=== PATIENT | female | born 1965 | race Caucasian/White ===

== ENCOUNTER 2024-02-29 14:46 | Outpatient (AMB) | payer OTHER, SELFPAY ==
--- NOTE | 2024-02-29 15:02 | MHC.PC.OV ---
Vital Signs 02/29/24 15:04 Height 5 ft 3.39 in Weight 242 lb 6 oz BMI 42.4 BP 136/70 Blood Pressure Location Lt brachial Position Sitting Pulse 76 Pulse Oximetry (%) 96 Oxygen Delivery Method Room Air Intake Visit Reasons: est care Intake Note: Patient is here as a new patient with concern of right knee pain, and lower back pain. Patient would like to have mammogram and colonsocopy referrals put in, and her eyelids hurt, too. Patient complains of losing a lot of sleep lately. Allergies No Known Allergies Allergy (Verified 02/29/24 15:18) Medication List - Last Reconciled 02/29/24 by Brendan Chew MD albuterol 90 mcg/actuation mcg inhalation amlodipine 10 mg PO DAILY budesonide-formoterol 160-4.5 mcg/actuation (Symbicort) 2 puffs inhalation BID ipratropium-albuterol 0.5 mg-3 mg(2.5 mg base)/3 mL mL inhalation BID losartan-hydrochlorothiazide 100-25 mg 1 tab PO DAILY montelukast 10 mg PO BEDTIME tiotropium bromide (Spiriva with HandiHaler) 1 cap inhalation DAILY Tobacco use date assessed: 02/29/24 Dental Screening Dental Screen Date: 02/29/24 Did you have a dental visit in the last 12 months?: Yes Did you have a dental problem in the last 6 months where you did not have access to dental care?: No Was dental information given to patient?: Patient has dentist HPI est care HPI Details New patient Prior PCP:? PCP in [facility]. Last office visit/CPE: Acute issue(s): PMHx: HTN, Asthma, Obesity, Osteochondrosis with sxs in neck - Cervicalgia SurgHx: None FHx: Mom: Glaucoma, HTN SocHx: No cigs. EtOH1 glass on holidays. No drugs HPI Comments History of Present Illness Details Documentation assistance for Brendan Chew MD, was provided by Shabbir Mulligan,? [employer] Specialist on 02/29/2024 3:24 PM EST. I, Dr. Chew, have read, observed, and verified documentation. [facility] Medical History (Updated 02/29/24 @ 15:57 by Shabbir Mulligan) Hemorrhoids Varicose veins of both legs with edema Asthma Surgical History (Updated 02/29/24 @ 15:[address] CMA) No pertinent past surgical history Family History (Updated 02/29/24 @ 15:[address] CMA) Mother High blood pressure Glaucoma Father Radiation adverse effect Social History (Updated 02/29/24 @ 15:[address] CMA) Household Members: Children Housing: House Are you a primary restorative care technician to a significant other at home: No Do you presently have visiting nurse or other home services: No Patient Tobacco Use Status: Never used Tobacco e-Cigarette/Vaping Use: Never Used service: No Current occupational status: other Cognitive needs: No Hearing needs: No Vision needs: No Questionnaire PHQ-9 Over the last 2 weeks, how often have you been bothered by any of the following problems? 1. Little interest or pleasure in doing things: not at all 2. Feeling down, depressed, or hopeless: not at all 3. Trouble falling or staying asleep, or sleeping too much: not at all 4. Feeling tired or having little energy: not at all 5. Poor appetite or overeating: not at all 6. Feeling bad about yourself - or that you are a failure or have let yourself or your family down: not at all 7. Trouble concentrating on things, such as reading the newspaper or watching television: not at all 8. Moving or speaking so slowly that other people could have noticed. Or the opposite - being so fidgety or restless that you have been moving around a lot more than usual: not at all 9. Thoughts that you would be better off or of hurting yourself in some way: not at all Total score: 0 Depression Screening Interpretation: Negative Depression Screening Done: Yes Source: Developed by Drs. Gerardo Spaulding, Paulette Pennington, Mike Dennis and colleagues, with an educational orlando from [employer]. Thrive Questionnaire Date Thrive assessed: 02/29/24 I am a: Patient What is your living situation today?: I have a steady place to live Within the past 12 months, did the food you bought not last and you didn't have the money to get more?: Never true Within the past 12 months, did you worry whether your food would run out before you got money to buy more?: Never true Do you have trouble paying for medicines?: Yes Do you have trouble getting transportation to medical appointments?: No Do you have trouble paying your heating and electricity bill?: No Do you have trouble taking care of your child, family member or friend?: No Do you have trouble with day-to-day activities such as bathing, preparing meals, shopping, managing finances, etc.?: No Are you currently unemployed and looking for a job?: Yes Are you interested in more education?: Yes THRIVE Score: 0 AUDIT C Alcohol Use Questionnaire (AUDIT-C) 1. How often do you have a drink containing alcohol?: Never 3. How often do you have six or more drinks on one occasion?: Never Total Score: 0 JOSE-7 AMB Questionnaire JOSE-7 Date JOSE - 7 assessed: 02/29/24 Feeling nervous, anxious, or on edge: 0 = Not at all Not being able to stop or control worryin = Not at all Worrying too much about different things: 0 = Not at all Trouble relaxin = Not at all Being so restless that it is hard to sit still: 0 = Not at all Becoming easily annoyed or irritable: 0 = Not at all Feeling afraid as if something awful might happen: 0 = Not at all Total JOSE-7 score (0-4 normal; 5-9 mild; 10-14 moderate; 15-21 severe): 0 Source: Developed by Drs. Gerardo Spaulding, Paulette Pennington, Mike Dennis and colleagues, with an educational orlando from [employer]. Review of Systems Const Denies chills, Denies fatigue, Denies fever(s), Denies headache(s) and Denies weakness ENT Denies dizziness and Denies headache(s) Card Denies chest pain, Denies lightheadedness, Denies dyspnea and Denies other (Palpitations) Resp Denies cough, Denies dyspnea, Denies wheezing and Denies other ( shortness of breath) Musc Details: Knee pain Reports back pain, Denies numbness and Denies tingling Neuro Denies dizziness, Denies headache(s), Denies numbness, Denies tingling, Denies paresthesias and Denies weakness Psych Denies anxiety and Denies depression Endo Denies fatigue Aller/Immun Denies wheezing Physical exam (Primary Care) BMI result Body Mass Index 42.4 Tobacco/Smoking Status: Tobacco use Status Tobacco use date assessed 02/29/24 02/29/24 15:24 Patient Tobacco Use Status Never used Tobacco 02/29/24 15:28 e-Cigarette/Vaping Use Never Used 02/29/24 15:28 PHQ-9: PHQ-9 Score PHQ-9: Total score 0 02/29/24 15:37 Depression Screening Interpretation: Negative Thrive Assessment: Date of Thrive Assessment Date Thrive assessed 02/29/24 02/29/24 15:34 Const General: no acute distress and well developed Nutritional Appearance: obese morbidly obese Orientation/consciousness: patient oriented x3 HENMT Head: Yes normocephalic and Yes atraumatic Eyes General: appearance normal, both eyes and all related structures Pupils: Equal, round and reactive pupils present EOM: EOMs intact bilaterally Resp Other: Wheezing Effort & Inspection: normal respiratory effort Auscultation: clear to auscultation bilaterally Cardio Rate: regular rate Rhythm: regular rhythm Heart sounds: S1 normal heart sound present, S2 normal heart sound present, no gallops, no murmurs and no rubs Neuro General: patient oriented x3 and gait normal Cranial nerves: Yes Equal, round and reactive pupils present Psych Affect: normal affect Assessment and Plan Assessment & Plan (1) Hypertension: Code(s): I10 - Essential (primary) hypertension Plan: Blood?pressure?is?controlled.??Goal?is?less?than?140/90 Continue?current?medication (2) Right knee pain: Code(s): M25.561 - Pain in right knee Plan: Likely?secondary?to?arthritis?with?effusion?and?some?dependent?swelling She?can?try?naproxen Check?x-ray (3) Low back pain: Code(s): M54.50 - Low back pain, unspecified Plan: Naproxen?will?also?help?with?low?back?pain (4) Asthma: Code(s): J45.909 - Unspecified asthma, uncomplicated Plan: Referred?to?pulmonology She?has?some?wheezing?and?has?a?Ventolin?inhaler?which?she?is?only?using?once?per?day.??Advised?her?to?use?3-4?times?per?day?with?wheezing Take?all?other?medications?as?prescribed Follow-up?with?pulmonology (5) Eye irritation: Code(s): H57.89 - Other specified disorders of eye and adnexa Plan: Appears?to?be?allergic?conjunctivitis Sent?a?script?for?olopatadine (6) Varicose veins of leg with edema: Code(s): I83.899 - Varicose veins of unspecified lower extremity with other complications Plan: Elevate?leg (7) Osteochondrosis: Code(s): M93.90 - Osteochondropathy, unspecified of unspecified site Plan: Neck?and?shoulder?pain Will?discuss?further?at?next?appointment (8) Screening for colon cancer: Code(s): Z12.11 - Encounter for screening for malignant neoplasm of colon Plan: Due?for?colonoscopy Referred?to?GI (9) Breast cancer screening by mammogram: Code(s): Z12.31 - Encounter for screening mammogram for malignant neoplasm of breast Plan: Due?for?mammogram Ordered Orders: Orders Lipid Panel Today Z00.00 - Encounter for general adult medical examination without abnormal findings UA and rflx microscopic Today Z00.00 - Encounter for general adult medical examination without abnormal findings MM tomosynthesis screening BI Today Z12.31 - Encounter for screening mammogram for malignant neoplasm of breast Erythrocyte Sedimentation Rate Today M25.561 - Pain in right knee XR knee RT 3V Today M25.561 - Pain in right knee Comprehensive [place]. Panel Fast Today Z00.00 - Encounter for general adult medical examination without abnormal findings Microalbumin, Random (w Creat) Today I10 - Essential (primary) hypertension TSH reflex Free T4 Today Z00.00 - Encounter for general adult medical examination without abnormal findings Referrals Gastroenterology Referral Z12.11 - Encounter for screening for malignant neoplasm of colon Pulmonology Referral J45.909 - Unspecified asthma, uncomplicated Medications: New olopatadine 0.7% (Pataday Once Daily Relief) 1 drp ophthalmic (eye) DAILY 30 days PRN 5 mL 4RF itching naproxen 500 mg PO BID 30 days PRN 60 tabs 0RF pain blood pressure monitor Automatic, Digital. Dx: I10. Daily As directed, 999 days/lifetime 1 ea 0RF I10 - Essential (primary) hypertension Coding Level of Care Code New Pt Level 4 (93936) Diagnoses Hypertension I10 Right knee pain M25.561 Low back pain M54.50 Asthma J45.909 Eye irritation H57.89 Varicose veins of leg with edema I83.899 Osteochondrosis M93.90 Screening for colon cancer Z12.11 Breast cancer screening by mammogram Z12.31
[2024-02-29 15:04] VITALS: BP 136/70; PULSE 76; O2SAT 96; BMI 42.4
== END 2024-02-29 16:20 | disposition home or self-care (01) ==
LOC: HO.HMGFM 14:46
PROVIDERS: Visit Provider Family Medicine
DX: I10 Essential (primary) hypertension (principal); M25.561 Pain in right knee; M54.50 Low back pain, unspecified; J45.909 Unspecified asthma, uncomplicated; H57.89 Other specified disorders of eye and adnexa; I83.899 Varicose veins of unspecified lower extremity with other complications; M93.90 Osteochondropathy, unspecified of unspecified site; Z12.11 Encounter for screening for malignant neoplasm of colon; Z12.31 Encounter for screening mammogram for malignant neoplasm of breast
CPT/HCPCS: 99204

== ENCOUNTER 2024-03-01 11:47 | Outpatient (REF) | payer OTHER, SELFPAY ==
--- NOTE | ~2024-03-01 | XR_ITS ---
EXAMINATION: XR KNEE, RIGHT CLINICAL INFORMATION: Pain in right knee. COMPARISON: None available. TECHNIQUE: Three views of the right knee. FINDINGS: Wxnioder-cl-cwhwye narrowing of the medial compartment with small medial marginal osteophytes. Tiny posterior patellar and lateral marginal osteophytes. Trace joint effusion. XR/XR knee RT 3V IMPRESSION: Cvqehord-ys-mwgxnr narrowing of the medial compartment.
[2024-03-01 13:49] LABS: Appearance Urine Clear; Color Urine Yellow; Glucose Urine UA Negative (Negative); Leukocyte Esterase Urine Small (1+) (Negative); Nitrite Urine Negative (Negative); PH 7.5 (5.0-9.0); Specific Gravity - Urine 1.015 (1.005-1.025); UMIC TRIGGER UA YES; Urine Blood Negative (Negative); Urine Ketones Negative (Negative); Urine Protein Negative (Neg-Trace)
[2024-03-01 14:01] LABS: Bacteria Urine 2+ (None Seen); Hyaline Casts Urine 0-2 /LPF (0-2); RBC Urine 0-2 /HPF (0-2); WBC Urine 0-5 /HPF (0-5)
[2024-03-01 14:16] LABS: Alanine Aminotransferase 36 U/L (0-31); Albumin Level 4.4 g/dL (3.5-5.0); Alkaline Phosphatase 54 U/L (39-117); Anion Gap 11 (12-20); Aspartate Amino Transferase 19 U/L (5-31); Bilirubin Total 0.5 mg/dL (0.0-1.0); Blood Urea Nitrogen 11 mg/dL (9-16); Calcium 9.6 mg/dL (8.4-10.2); Carbon Dioxide 33 mmol/L (22-29); Chloride 105 mmol/L (96-108); Cholesterol 211 mg/dL (<200); Estimated Glomerular Filt Rate > 60; Glucose Fasting 118 mg/dL (60-99); HDL Cholesterol 48 mg/dL (>40); LDL Cholesterol Calculated 135 mg/dL (<100); Potassium 4.8 mmol/L (3.3-5.1); Sodium 144 mmol/L (135-145); Total Protein 7.2 g/dL (6.5-8.0); Triglycerides 140 mg/dL (<150)
[2024-03-01 14:31] LABS: TSH reflex Free T4 1.11 uIU/mL (0.32-4.0)
[2024-03-01 14:38] LABS: Creatinine Urine 47.97 mg/dL; Microalbumin Urine < 5.0 mg/L
[2024-03-01 14:50] LABS: Erythrocyte Sedimentation Rate 2 MM/HR (0-20)
== END 2024-03-01 11:48 | disposition home or self-care (01) ==
LOC: HO.LAB 11:47
PROVIDERS: PCP Family Medicine; Visit Provider Family Medicine
DX: Z00.00 Encounter for general adult medical examination without abnormal findings (principal); I10 Essential (primary) hypertension; M25.561 Pain in right knee
CPT/HCPCS: 36415; 73562; 80053; 80061; 81001; 82043; 82570; 84443; 85652

== ENCOUNTER 2024-03-18 13:48 | Outpatient (AMB) | payer OTHER, SELFPAY ==
--- NOTE | 2024-03-18 13:48 | MHC.OFFVIS ---
Vital Signs 03/18/24 13:56 Height 5 ft 3.39 in Weight 241 lb 8 oz BMI 42.3 BP 160/88 H Blood Pressure Location Rt brachial Position Sitting Pulse 85 Pulse Source Pulse Oximeter Pulse Oximetry (%) 96 Oxygen Delivery Method Room Air Intake Visit Reasons: unspecified asthma Recruiting And Selection Consultant Required: Yes Recruiting And Selection Consultant Language: Monegasque Recruiting And Selection Consultant Name: [id number] Allergies procaine [From Novocain] Allergy (Mild, Verified 03/18/24 14:00) Redness of Skin HPI HPI unspecified asthma: Details: Thu is a pleasant 59 year old female, never smoker, with underlying asthma and HTN. She was referred by PCP for pulmonary evaluation. She is suboptimally controlled on Symbicort, Spiriva, singulair, duoneb BID and albuterol MDI PRN. She was previously under the care of pulmonology in [place], no records available to review. She reports asthma diagnosis as an adult, no need for prior intubations. She last reportedly required prednisone for an exacerbation about one year ago. She continues to report wheezing dyspnea on exertion and dry cough. She reports seasonal allergies, no recent allergy testing. She denies any pertinent family history. She denies any occupational exposures. [facility] Medical History (Updated 03/18/24 @ 14:23 by Sofia Ivory NP) Hemorrhoids Varicose veins of both legs with edema Asthma Surgical History (Updated 02/29/24 @ 15:[address] CMA) No pertinent past surgical history Family History (Updated 02/29/24 @ 15:[address] CMA) Mother High blood pressure Glaucoma Father Radiation adverse effect Social History Household Members: Children Housing: House Are you a primary care services manager to a significant other at home: No Do you presently have visiting nurse or other home services: No Patient Tobacco Use Status: Never used Tobacco e-Cigarette/Vaping Use: Never Used service: No Current occupational status: other Cognitive needs: No Hearing needs: No Vision needs: No Review of Systems Const Denies chills, Denies excessive sweating, Denies fever(s), Denies headache(s) and Denies night sweats Eyes Denies dry eyes, Denies irritation and Denies itchy eyes ENT Reports Normal hearing present, Denies headache(s), Denies nasal congestion, Denies nasal discharge, Denies post nasal drip and Denies sore throat Card Denies chest pain, Denies chest pain at rest, Denies chest pain with activity, Denies claudication, Denies leg edema, Denies dyspnea, Denies dyspnea on exertion, Denies orthopnea and Denies paroxysmal nocturnal dyspnea Resp Denies chest congestion, Denies cough, Denies excessive phlegm production, Denies pain on inspiration, Denies pain with cough, Denies dyspnea, Denies dyspnea on exertion, Denies stridor and Denies wheezing Musc Denies myalgias Neuro Reports Normal hearing present and Denies headache(s) Endo Denies excessive sweating Jonh/Lymph Denies lymphadenopathy Aller/Immun Denies itchy eyes, Denies seasonal rhinorrhea and Denies wheezing Physical Exam Vital Signs: Last Vital Signs Pulse 85 03/18/24 13:56 BP 160/88 H 03/18/24 13:56 Pulse Ox 96 03/18/24 13:56 Oxygen Delivery Method Room Air 03/18/24 13:56 BMI result Body Mass Index 42.3 Const General: cooperative, healthy appearing, comfortable, no acute distress, well developed and alert Nutritional Appearance: obese Orientation/consciousness: patient oriented x3 Limitations: no limitations HEENT Head: Yes normal to inspection, Yes normocephalic and Yes atraumatic Ears: hearing grossly normal bilaterally and external ears normal Eyes General: appearance normal, both eyes and all related structures Eyelids: Yes eyelids normal Sclerae: sclerae normal EOM: EOMs intact bilaterally Neck Neck: Yes normal visual inspection and Yes no lymphadenopathy Lymphatic: no lymphadenopathy noted Chest Chest palpation & inspection: normal inspection of the chest Resp Effort & Inspection: normal respiratory effort, able to speak in complete sentences, no audible wheezes, no cough, no stridor, not tachypneic, no tripod positioning and no use of accessory muscles Auscultation: wheezes expiratory wheezes and throughout Cardio Jugular venous distension: no JVD Rate: regular rate Rhythm: regular rhythm Skin Other: warm, dry General skin exam: no rashes or lesions noted Neuro General: patient oriented x3 Cranial nerves: Yes Normal hearing present Cognition (Neuro): normal cognition Gait exam (Neuro): Normal gait present Extrem General: Yes normal to inspection, Yes capillary refill normal, Yes no clubbing, cyanosis or edema and Yes no pedal edema Psych Appearance: grossly normal and well kempt Speech and movement: Normal speech and movement present and Clear speech present Affect: normal affect Attitude: cooperative Thought process: Normal thought process present Thought content: Normal thought content present Insight: Good insight present (Psych) Judgement: Good judgement present (Psych) Assessment & Plan Assessment & Plan (1) Asthma: Code(s): J45.909 - Unspecified asthma, uncomplicated Category: Medical (2) Environmental allergies: Code(s): Z91.09 - Other allergy status, other than to drugs and biological substances Category: Medical Plan Thu's symptoms are likely related to underlying asthma. Advised to continue current regimen and for the next few days increase duoneb to TID as well as 5 day rx of prednisone. Will send for PFT and RAST to evaluate. May need to initiate biologic therapy. Patient with no recent imaging and persistent cough, will send for CXR. Will also have patient sign release to obtain prior pulmonary records. All questions were answered and patient is in agreement of plan. Will follow up to review results or sooner if needed. Orders: Orders XR chest 2V Today R05.9 - Cough, unspecified Resp Allergy Profile Region I Today Z91.09 - Other allergy status, other than to drugs and biological substances Immunoglobulin E Today Z91.09 - Other allergy status, other than to drugs and biological substances Complete Blood Count Auto Diff Today Z91.09 - Other allergy status, other than to drugs and biological substances PFT pulmonary function test Today J45.909 - Unspecified asthma, uncomplicated Medications: New prednisone 40 mg (2 x 20 mg) PO DAILY 10 tabs 0RF Coding Level of Care Code New Pt Level 4 (45409) Diagnoses Asthma J45.909 Environmental allergies Z91.09
[2024-03-18 13:56] VITALS: BP 160/88; PULSE 85; O2SAT 96; BMI 42.3
== END 2024-03-18 14:44 | disposition home or self-care (01) ==
PROVIDERS: PCP Family Medicine; Visit Provider Nurse Practitioner Family
DX: J45.909 Unspecified asthma, uncomplicated (principal); Z91.09 Other allergy status, other than to drugs and biological substances
CPT/HCPCS: 99204

== ENCOUNTER → 2024-03-18 13:48 | Outpatient (BNVA) | payer OTHER, SELFPAY | PROVIDERS: PCP Family Medicine; Visit Provider Nurse Practitioner Family | DX: J45.909 Unspecified asthma, uncomplicated (principal); Z91.09 Other allergy status, other than to drugs and biological substances | CPT/HCPCS: 99202 ==

== ENCOUNTER 2024-03-22 09:39 | Outpatient (REF) | payer OTHER, SELFPAY ==
[2024-03-22 11:33] LABS: MANUAL DIFF FLAG NO
[2024-03-22 11:42] LABS: Basophils Percent Auto 0.3 % (0-2); Eosinophils Absolute Auto 0.3 X10*3/uL (0.0-0.4); Eosinophils Percent Auto 3.4 % (0-4); Hematocrit 43.6 % (37.0-47.0); Imm Gran Abs Auto 0.02 X10*3/uL (0.00-0.03); Imm Gran Pct Auto 0.2 % (0.0-0.4); Lymphocytes Absolute Auto 4.3 X10*3/uL (1.2-4.9); Lymphocytes Percent Auto 48.6 % (20-40); Mean Corpuscular HGB Conc 32.1 g/dl (31.0-35.0); Mean Corpuscular Hemoglobin 30.6 pg (27.0-33.0); Mean Corpuscular Volume 95.2 fL (80.0-98.0); Mean Platelet Volume 10.6 fL (9.4-12.3); Monocytes Absolute Auto 0.7 X10*3/uL (0.1-1.2); Monocytes Percent Auto 7.3 % (2-11); Neutrophils Absolute Auto 3.6 x10*3/uL (2.0-8.3); Neutrophils Percent Auto 40.2 % (45-73); Platelet Count 239 X10*3/uL (160-400); Red Blood Count 4.58 X10*6/uL (4.20-5.50); Red Cell Distribution Width 13.2 % (11.0-16.0); White Blood Count 8.9 X10*3/uL (4.8-10.8)
[2024-03-23 16:23] LABS: Class Alternaria alternata 0; Class Aspergillus fumigatus 0; Class Bermuda Grass 0; Class Birch 0; Class Cat Dander 0; Class Cladosporium herbarum 0; Class Cockroach 0; Class Common Ragweed 0; Class Cottonwood 0; Class Derm. pterony 0; Class Dermatophagoides farinae 0; Class Dog Dander 0; Class Elm 0; Class Maple Box Elder 0; Class Mountain Cedar 0; Class Mouse Urine Protein 0; Class Mugwort 0; Class Oak 0; Class Penicillium crysogenum 0; Class Rough Pigweed 0; Class Sheep Sorrel 0; Class Sycamore 0; Class Timothy Grass 0; Class Walnut Tree 0; Class White Ash 0; Class White Mulberry 0; D001 IgE D pteronyssinus <0.10 kU/L; D002 - IgE D farinae <0.10 kU/L; E001 - IgE Cat Dander <0.10 kU/L; E005 - IgE Dog Dander <0.10 kU/L; E072-IgE Mouse Urine <0.10 kU/L; G002 IgE Bermuda Grass <0.10 kU/L; G006 - IgE Timothy Grass <0.10 kU/L; I006-IgE Cockroach, German <0.10 kU/L; Immunoglobulin E 20 kU/L (<OR=114); M001 IgE Penicillium chrysogen <0.10 kU/L; M002 - IgE Cladosporium herbar <0.10 kU/L; M003 - IgE Aspergillus fumigat <0.10 kU/L; M006 - IgE Alternaria alternat <0.10 kU/L; T001 IgE Maple/Box Elder <0.10 kU/L; T003 IgE Common Silver Birch <0.10 kU/L; T006 - IgE Cedar, Mountain <0.10 kU/L; T007 - IgE Oak, White <0.10 kU/L; T008 IgE Elm, American <0.10 kU/L; T010 - IgE Walnut <0.10 kU/L; T011 - IgE Maple Leaf Sycamore <0.10 kU/L; T014 - IgE Cottonwood <0.10 kU/L; T015 - IgE Ash, White <0.10 kU/L; T070 - IgE White Mulberry <0.10 kU/L; W001 - IgE Ragweed, Short <0.10 kU/L; W006 - IgE Mugwort <0.10 kU/L; W014 IgE Pigweed, Common <0.10 kU/L; W018 IgE Sheep Sorrel <0.10 kU/L
== END 2024-03-22 09:40 | disposition home or self-care (01) ==
LOC: HO.WFDLDS 09:39
PROVIDERS: Visit Provider Nurse Practitioner Family
DX: Z91.09 Other allergy status, other than to drugs and biological substances (principal)
CPT/HCPCS: 36415; 82785; 85025; 86003

== ENCOUNTER 2024-04-07 13:50 | Outpatient (REF) | payer OTHER, SELFPAY ==
--- NOTE | ~2024-04-07 | MM_ITS ---
EXAMINATION: MM SCREENING DIGITAL BREAST TOMOSYNTHESIS, BILATERAL CLINICAL INFORMATION: Screening. Asymptomatic. COMPARISON: Mammography: There are no prior mammograms available for comparison. TECHNIQUE: Digital breast tomosynthesis is performed in both the craniocaudal and mediolateral oblique views along with computer-aided detection (CAD). Synthesized 2D images are generated from the tomosynthesis. FINDINGS: The breasts are almost entirely fatty (ACR BI-RADS breast composition Category a). There are no significant masses, abnormal calcifications, or other abnormalities. MM/MM tomosynthesis screening BI IMPRESSION: No mammographic evidence of malignancy. ASSESSMENT: BI-RADS BI-RADS 1 - Negative RECOMMENDATION: Routine annual mammography screening. 1 year F/U This examination should not preclude the clinical evaluation of a suspicious palpable abnormality. This patient's information was entered into a reminder system with a target due date for their next mammogram.
== END 2024-04-07 13:51 | disposition home or self-care (01) ==
LOC: HO.MAMMO 13:50
PROVIDERS: PCP Family Medicine; Visit Provider Family Medicine
DX: Z12.31 Encounter for screening mammogram for malignant neoplasm of breast (principal)
CPT/HCPCS: 77063; 77067

== ENCOUNTER → 2024-04-07 14:00 | Outpatient (BNV) | payer OTHER, SELFPAY | PROVIDERS: PCP Family Medicine; Visit Provider Radiology Diagnostic Radiology | DX: Z12.31 Encounter for screening mammogram for malignant neoplasm of breast (principal) | CPT/HCPCS: 77063; 77067 ==

== ENCOUNTER 2024-05-04 14:37 | Outpatient (AMB) | payer OTHER, SELFPAY ==
--- NOTE | 2024-05-04 14:56 | MHC.OFFVIS ---
Vital Signs 05/04/24 14:58 Height 5 ft 3.39 in Weight 248 lb 6 oz BMI 43.5 BP 142/76 H Blood Pressure Location Lt brachial Position Sitting Pulse 94 Pulse Source Pulse Oximeter Pulse Oximetry (%) 92 Oxygen Delivery Method Room Air Intake Visit Reasons: asthma Intake Note: [id number] Allergies procaine [From Novocain] Allergy (Mild, Verified 05/31/24 09:34) Redness of Skin HPI HPI asthma : Details: Thu is a pleasant 59 year old female, never smoker, with underlying asthma, severe YAA and HTN. She is suboptimally controlled on Symbicort, Spiriva, singulair, duoneb BID and albuterol MDI PRN. She was previously under the care of pulmonology in [place]. Reviewed more recent records which revealed moderate asthma and with question on pulmonary fibrosis, however no recent chest CT. Patient and prior documents from 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 Records also indicated severe YAA with AHI 33 and significant nocturnal hypoxemia, lowest 51%, from home sleep study performed 04/2023. She has been maintained on CPAP therapy 6-16cm with fullface mask and receives supplies from [facility]. Compliance from 09/2023 revealed compliance with therapy. No updated compliance report available today. [facility] Medical History Hemorrhoids Varicose veins of both legs with edema Asthma Surgical History History of colonoscopy (~2012) No pertinent past surgical history Family History Mother High blood pressure Glaucoma Father Radiation adverse effect Social History Household Members: Children Housing: House Are you a primary transitions rn care coordinator to a significant other at home: No Do you presently have visiting nurse or other home services: No Patient Tobacco Use Status: Never used Tobacco e-Cigarette/Vaping Use: Never Used service: No Current occupational status: other Cognitive needs: No Hearing needs: No Vision needs: No Review of Systems Const Denies chills, Denies excessive sweating, Denies fever(s), Denies headache(s) and Denies night sweats Eyes Denies dry eyes, Denies irritation and Denies itchy eyes ENT Reports Normal hearing present, Denies headache(s), Denies nasal congestion, Denies nasal discharge, Denies post nasal drip and Denies sore throat Card Denies chest pain, Denies chest pain at rest, Denies chest pain with activity, Denies claudication, Denies leg edema, Denies orthopnea and Denies paroxysmal nocturnal dyspnea Resp Denies chest congestion, Denies excessive phlegm production, Denies pain on inspiration, Denies pain with cough and Denies stridor Musc Denies myalgias Neuro Reports Normal hearing present and Denies headache(s) Endo Denies excessive sweating Jonh/Lymph Denies lymphadenopathy Aller/Immun Denies itchy eyes and Denies seasonal rhinorrhea Physical Exam Vital Signs: Last Vital Signs Pulse 94 05/04/24 14:58 BP 142/76 H 05/04/24 14:58 Pulse Ox 92 05/04/24 14:58 Oxygen Delivery Method Room Air 05/04/24 14:58 BMI result Body Mass Index 43.5 Const General: cooperative, healthy appearing, comfortable, no acute distress, well developed and alert Nutritional Appearance: obese Orientation/consciousness: patient oriented x3 Limitations: no limitations HEENT Head: Yes normal to inspection, Yes normocephalic and Yes atraumatic Ears: hearing grossly normal bilaterally and external ears normal Eyes General: appearance normal, both eyes and all related structures Eyelids: Yes eyelids normal Sclerae: sclerae normal EOM: EOMs intact bilaterally Neck Neck: Yes normal visual inspection and Yes no lymphadenopathy Lymphatic: no lymphadenopathy noted Chest Chest palpation & inspection: normal inspection of the chest Resp Other: faint expiratory wheezing throughout Effort & Inspection: normal respiratory effort, able to speak in complete sentences, no audible wheezes, no cough, no stridor, not tachypneic, no tripod positioning and no use of accessory muscles Auscultation: wheezes Cardio Jugular venous distension: no JVD Rate: regular rate Rhythm: regular rhythm Skin Other: warm, dry General skin exam: no rashes or lesions noted Neuro General: patient oriented x3 Cranial nerves: Yes Normal hearing present Cognition (Neuro): normal cognition Gait exam (Neuro): Normal gait present Extrem General: Yes normal to inspection, Yes capillary refill normal, Yes no clubbing, cyanosis or edema and Yes no pedal edema Psych Appearance: grossly normal and well kempt Speech and movement: Normal speech and movement present and Clear speech present Affect: normal affect Attitude: cooperative Thought process: Normal thought process present Thought content: Normal thought content present Insight: Good insight present (Psych) Judgement: Good judgement present (Psych) Assessment & Plan Assessment & Plan (1) Asthma: Code(s): J45.909 - Unspecified asthma, uncomplicated Category: Medical (2) Environmental allergies: Code(s): Z91.09 - Other allergy status, other than to drugs and biological substances Category: Medical (3) Cough: Code(s): R05.9 - Cough, unspecified Category: Medical (4) Dyspnea: Code(s): R06.00 - Dyspnea, unspecified Category: Medical Plan Advised to continue current regimen and will send in rx of prednisone. RAST negative and CXR unremarkable. Will send for updated PFT (scheduled) and CT chest to evaluate for pulmonary fibrosis. Will also send for echo. May need to initiate biologic therapy. Will hold off on any disability paperwork until full evaluation. All questions were answered and patient is in agreement of plan. Will follow up to review results or sooner if needed. Medications: New prednisone see taper instructions; 40 mg Daily x3 days, 30 mg daily x3 days, 20 mg daily x3 days, 10 mg daily x3 days 10 mg PO DIRECTED 30 tabs 0RF Coding Level of Care Code Est Pt Level 4 (02861) Diagnoses Asthma J45.909 Environmental allergies Z91.09 Cough R05.9 Dyspnea R06.00
[2024-05-04 14:58] VITALS: BP 142/76; PULSE 94; O2SAT 92; BMI 43.5
== END 2024-05-04 15:58 | disposition home or self-care (01) ==
PROVIDERS: PCP Family Medicine; Visit Provider Nurse Practitioner Family
DX: J45.909 Unspecified asthma, uncomplicated (principal); Z91.09 Other allergy status, other than to drugs and biological substances; R05.9 Cough, unspecified; R06.00 Dyspnea, unspecified
CPT/HCPCS: 99214

== ENCOUNTER → 2024-05-04 14:37 | Outpatient (BNVA) | payer OTHER, SELFPAY | PROVIDERS: PCP Family Medicine; Visit Provider Nurse Practitioner Family | DX: J45.909 Unspecified asthma, uncomplicated (principal); R05.9 Cough, unspecified; R06.00 Dyspnea, unspecified; Z91.09 Other allergy status, other than to drugs and biological substances | CPT/HCPCS: 99212 ==

== ENCOUNTER 2024-05-31 09:18 | Outpatient (AMB) | payer OTHER, SELFPAY ==
--- NOTE | 2024-05-31 09:24 | MHC.OFFVIS ---
Vital Signs 05/31/24 09:26 Height 5 ft 3 in Weight 243 lb 13.3 oz BMI 43.2 BP 146/86 H Blood Pressure Location Lt brachial Position Sitting Pulse 74 Pulse Source Pulse Oximeter Pulse Oximetry (%) 93 Oxygen Delivery Method Room Air Intake Visit Reasons: Colonoscopy Screening Intake Note: Thu presents in office today for a scheduled colo s/p scrn CC; This s/p consult was scheduled with routine/recall priority. Pt reports that they had their last s/p approximately 11 years ago. Pt does also report having internal and external hemorrhoids with difficulties pertaining to constipation. Pt reports that they have also experienced a new ionset of a LUQ pain which started approximatley 2 mos ago. Environmental Technician Required: Yes Environmental Technician Services: Environmental Technician Present Environmental Technician Name: Veronica [id number] Information Interpreted: non-clinical & clinical Accompanied by: Self / Same As Patient Allergies procaine [From Novocain] Allergy (Mild, Verified 05/31/24 09:34) Redness of Skin HPI HPI Colonoscopy Screening: Details: 59-year-old female with past medical history of environmental allergies, hypertension, asthma is here today for initial consultation. Colonoscopy over 10 years ago. Patient reports to have upper quadrant pain in the past couple months. Patient reports that the pain is at times after meals and sometimes the pain just comes randomly. Patient reports that she is having trouble moving her bowels. Does not feel like she empties them completely when she does have a bowel movement. Patient reports significant hemorrhoids. Denies bleeding, however occasional blood in his stool when wiping. Patient denies any melena. Denies any family history of CRC. No issues with anesthesia in the past. No history of sleep apnea. Patient is not on any anticoagulation medication. Denies any cardiac or respiratory symptoms all the patient does have a history of asthma. [facility] Medical History Hemorrhoids Varicose veins of both legs with edema Asthma Surgical History History of colonoscopy (~2012) No pertinent past surgical history Family History Mother High blood pressure Glaucoma Father Radiation adverse effect Social History (Reviewed 05/31/24 @ 09:34 by Arben Baires [facility] [place] Household Members: Children Housing: House Are you a primary patient centered care specialist to a significant other at home: No Do you presently have visiting nurse or other home services: No Patient Tobacco Use Status: Never used Tobacco e-Cigarette/Vaping Use: Never Used service: No Current occupational status: other Cognitive needs: No Hearing needs: No Vision needs: No Review of Systems Const Denies weight gain and Denies weight loss ENT Reports no additional complaints, Denies dysphagia and Denies odynophagia Card Reports no additional complaints Resp Reports no additional complaints GI Reports abdominal pain (LUQ), Denies belching, Denies melena, Reports bloating, Denies change in bowel habits, Reports constipation, Denies dysphagia, Denies excessive flatus, Denies dyspepsia, Denies heartburn, Denies diarrhea, Denies loose stools, Denies nausea, Denies odynophagia and Denies vomiting Reports no additional complaints Musc Reports no additional complaints Neuro Reports no additional complaints Psych Reports no additional complaints Endo Reports no additional complaints Physical Exam Vital Signs: Last Vital Signs Pulse 74 05/31/24 09:26 BP 146/86 H 05/31/24 09:26 Pulse Ox 93 05/31/24 09:26 Oxygen Delivery Method Room Air 05/31/24 09:26 BMI result Body Mass Index 43.2 Const General: healthy appearing and no acute distress Nutritional Appearance: obese Orientation/consciousness: patient oriented x3 Resp Effort & Inspection: normal respiratory effort, able to speak in complete sentences, no tracheal deviation and symmetric chest movement Auscultation: clear to auscultation bilaterally Cardio Rate: regular rate GI Inspection: Yes normal to inspection, No distended and Yes obesity Palpation (GI): Soft to palpation, not firm, nontender and No hepatosplenomegaly present Auscultation: normal bowel sounds General: Yes no CVA tenderness Back/Spine/Pelvis Back: no CVA tenderness Skin General skin exam: elasticity normal, turgor normal and dry skin Neuro General: patient oriented x3 Psych Appearance: grossly normal Mental Status: mental status grossly normal Assessment & Plan Assessment & Plan (1) Screening for colon cancer: Code(s): Z12.11 - Encounter for screening for malignant neoplasm of colon Category: Medical (2) Postprandial epigastric pain: Code(s): R10.13 - Epigastric pain (3) Abdominal pain, LUQ (left upper quadrant): Code(s): R10.12 - Left upper quadrant pain (4) Constipation: Code(s): K59.00 - Constipation, unspecified Qualifiers: Constipation type: slow transit constipation Qualified Code(s): K59.01 - Slow transit constipation (5) Postprandial abdominal bloating: Code(s): R14.0 - Abdominal distension (gaseous) (6) Hemorrhoid: Code(s): K64.9 - Unspecified hemorrhoids Qualifiers: Hemorrhoid type: unspecified Qualified Code(s): K64.9 - Unspecified hemorrhoids Plan Left upper quadrant pain area nontender. Patient admits to feeling gassy and bloated postprandially. Could be gas trapping pain, however we will check lipase, transglutaminase. Patient reports to have trouble moving her bowels check her thyroid level, vitamin-B 12, folate, vitamin-D levels. Will send her for CT scan to rule out pancreatitis, diverticulitis. Patient will start taking Dulcolax daily to help her move her bowels. Proctosol send to pharmacy. Patient will return in 2 months to discuss going for colonoscopy. Message sent to surgical schedulers to book patient for the procedure. Patient is agreeable to this plan and verbalizes understanding of instructions. She was given the opportunity to ask questions and all questions answered. Thank you for allowing me to participate in her care Orders: Orders Transglutaminase Ab IgG 06/07/24 R10.9 - Unspecified abdominal pain Transglutaminase IgA 06/07/24 R10.9 - Unspecified abdominal pain Lipase 06/07/24 R10.9 - Unspecified abdominal pain TSH reflex Free T4 06/07/24 K59.00 - Constipation, unspecified Vitamin B12 and Folate 06/07/24 R19.7 - Diarrhea, unspecified Vitamin D 25-OH (D2 and D3) 06/07/24 E55.9 - Vitamin D deficiency, unspecified Blood Urea Nitrogen 06/07/24 R10.11 - Right upper quadrant pain CT abdomen pelvis w IV con 05/31/24 R10.9 - Unspecified abdominal pain, R10.12 - Left upper quadrant pain Creatinine 06/07/24 R10.11 - Right upper quadrant pain Medications: New hydrocortisone 2.5% (Anusol-HC) use as directed 1 appl UT BID-QID PRN 30 grams 3RF hemorrhoids K64.9 - Unspecified hemorrhoids bisacodyl (Dulcolax (bisacodyl)) 10 mg (2 x 5 mg) PO BEDTIME 180 tabs 4RF Coding Level of Care Code New Pt Level 4 (96320) Diagnoses Screening for colon cancer Z12.11 Postprandial epigastric pain R10.13 Abdominal pain, LUQ (left upper quadrant) R10.12 Slow transit constipation K59.01 Constipation type: slow transit constipation Postprandial abdominal bloating R14.0 Hemorrhoids, unspecified hemorrhoid type K64.9 Hemorrhoid type: unspecified Time Spent (min) 45 Comment 30 minutes spent with patient and additional 15 minutes spent reviewing her records
[2024-05-31 09:26] VITALS: BP 146/86; PULSE 74; O2SAT 93; BMI 43.2
== END 2024-05-31 10:42 | disposition home or self-care (01) ==
PROVIDERS: PCP Family Medicine; Visit Provider Nurse Practitioner Family
DX: Z12.11 Encounter for screening for malignant neoplasm of colon (principal); R10.13 Epigastric pain; R10.12 Left upper quadrant pain; K59.01 Slow transit constipation; R14.0 Abdominal distension (gaseous); K64.9 Unspecified hemorrhoids; Z01.818 Encounter for other preprocedural examination
CPT/HCPCS: 99204

== ENCOUNTER → 2024-05-31 09:18 | Outpatient (BNVA) | payer OTHER, SELFPAY | PROVIDERS: PCP Family Medicine; Visit Provider Nurse Practitioner Family | DX: R10.13 Epigastric pain (principal); R10.12 Left upper quadrant pain; K59.01 Slow transit constipation; R14.0 Abdominal distension (gaseous); K64.9 Unspecified hemorrhoids | CPT/HCPCS: 99202 ==

== ENCOUNTER 2024-06-07 10:40 | Outpatient (REF) | payer OTHER, SELFPAY ==
[2024-06-07 17:21] LABS: Blood Urea Nitrogen 7 mg/dL (9-16); Estimated Glomerular Filt Rate > 60; Lipase 19 U/L (8-78)
[2024-06-07 17:38] LABS: TSH reflex Free T4 1.77 uIU/mL (0.32-4.0)
[2024-06-07 17:53] LABS: Folate 9.1 ng/mL (> or = 4.0); Vitamin B12 455 pg/mL (200-900)
[2024-06-09 21:08] LABS: Transglutaminase Ab IgG <1.0 U/mL; Transglutaminase IgA <1.0 U/mL
[2024-06-13 14:48] LABS: Vitamin D 25-OH, D2 <4 ng/mL; Vitamin D 25-OH, D3 26 ng/mL; Vitamin D 25-OH, Total 26 ng/mL (30-100)
[2024-06-14 18:38] LABS: Immunoglobulin E 25 kU/L (<OR=114)
== END 2024-06-07 10:41 | disposition home or self-care (01) ==
LOC: HO.WFDLDS 10:40
PROVIDERS: Nurse Practitioner Family; Visit Provider Nurse Practitioner Family
DX: R10.11 Right upper quadrant pain (principal); E55.9 Vitamin D deficiency, unspecified; R19.7 Diarrhea, unspecified; K59.00 Constipation, unspecified; R10.9 Unspecified abdominal pain; Z91.09 Other allergy status, other than to drugs and biological substances
CPT/HCPCS: 36415; 82306; 82565; 82607; 82746; 82785; 83690; 84443; 84520; 86364

== ENCOUNTER 2024-06-08 12:27 | Outpatient (REF) | payer OTHER, SELFPAY ==
--- NOTE | ~2024-06-08 | CT_ITS ---
EXAMINATION: CT CHEST WITHOUT IV CONTRAST CT ABDOMEN AND PELVIS WITH CONTRAST CLINICAL INFORMATION: Reason for Exam R05.9 - Cough, unspecified. COMPARISON: No pertinent prior studies are available for comparison. TECHNIQUE: Multidetector volumetric imaging was performed through the chest without IV contrast. Subsequently, during the infusion of 85 mL of Omnipaque 350, scans were performed through the abdomen and pelvis. Sagittal and coronal reformatted images were obtained on the technologist's workstation. This CT examination was performed using dose optimization techniques as appropriate, variously including the following: *Automated exposure control *Adjustment of mA and/or kV according to patient size (this includes techniques or standardized protocols for targeted exams where dose is matched to indication/reason for exam; i.e. extremities or head) *Use of iterative reconstruction technique DLP: 943 mGy-cm FINDINGS: CHEST: Lungs: There is mild bronchial thickening. Some scattered calcified granulomas are present. The lungs are otherwise clear without focal opacity or concerning nodule. Mediastinum: The mediastinum is normal. The central vascular structures are unremarkable. No hilar or mediastinal lymphadenopathy. Pericardium/Pleura: No significant effusion. No pleural mass or thickening. Chest Wall/Axilla: Unremarkable. ABDOMEN/PELVIS: Peritoneal Space: No significant free air or free fluid identified. Liver, Gallbladder, Biliary Tree: The liver is enlarged measuring 19.4 cm in cephalocaudad dimension with decreased attenuation consistent with hepatic steatosis. No focal hepatic lesion or biliary ductal dilatation is present. The gallbladder is unremarkable with no evidence of radiopaque gallstones, gallbladder wall thickening, or obvious pericholecystic inflammatory changes. Pancreas: Unremarkable. Spleen: Unremarkable. Adrenal Glands: Unremarkable. Kidneys and Ureters: The kidneys are normal in size, shape, and attenuation. No hydronephrosis, hydroureter, or calculi seen. No perinephric stranding. Bladder: Unremarkable. Gastrointestinal Tract: The small and large bowel are unremarkable. The appendix is unremarkable. Abdominal Wall: There is a tiny periumbilical hernia seen containing only fat along with tiny inguinal hernias containing only fat. Lymph Nodes: No lymphadenopathy. Vascular: The aorta appears normal. The IVC appears unremarkable. PELVIC VISCERA: The uterus and adnexa are unremarkable. OSSEUS STRUCTURES: Moderate degenerative changes are noted in the spine from L4 through S1. No bony destructive lesions are seen. CT/CT abdomen pelvis w IV con IMPRESSION: 1. A cause for the patient's cough and abdominal pain has not been found. 2. Incidental note made of mild bronchial thickening, calcified granulomas, enlarged fatty liver and degenerative changes in the spine. Fleischner guidelines were followed.
[2024-06-08] MEDS: Barium Sulfate Oral (Vanilla) 450 ML ORAL.SUSP 900 ML PO (16:00)
[2024-06-08] MEDS: iohexoL 350 MG/ML 100 ML INFUS..BTL IV (16:01)
== END 2024-06-08 12:28 | disposition home or self-care (01) ==
LOC: HO.CT 12:27
PROVIDERS: Visit Provider Nurse Practitioner Family
DX: R10.12 Left upper quadrant pain (principal); R10.9 Unspecified abdominal pain; R05.9 Cough, unspecified; Z92.3 Personal history of irradiation
CPT/HCPCS: 71250; 74177; Q9967

== ENCOUNTER → 2024-06-29 08:56 | Outpatient (REF) | payer OTHER, SELFPAY ==
--- NOTE | 2024-06-29 08:59 | CA_ITS ---
Transthoracic Echocardiogram Patient (Last, First, Middle): Thu Baron, Gender: Female Date of : 1965 Age: 59 Procedure Date: 06/29/2024 Procedure Type: Transthoracic Echocardiogram Location: OP Height: 160.02 cm Weight: 90.01 kg BSA: 1.93 m2 Heart Rate: 80 bpm BP: 146 / 90 mmHg Engraver Flatware: TO Referring MD: Sofia Ivory CUSTOMER EXPERIENCE INTERN Form Tamper: Mina Holcomb MD Symptoms: R06.00 - Dyspnea, unspecified Study Quality: Adequate ECG Rhythm: Sinus Conclusions: - Essentially normal study Findings Left Ventricle Normal left ventricular size, thickness, and systolic function. The visually estimated ejection fraction is between 60-65%. Spectral Doppler is indicative of a normal filling pattern. Right Ventricle Normal right ventricular cavity size and systolic function. Atria Both atria are normal in size. Interatrial shunt cannot be excluded. Aortic Valve Normal aortic valve structure and function. There is no aortic valve stenosis. There is no aortic valve regurgitation. Mitral Valve Normal mitral valve structure and function. There is trace mitral valve regurgitation. There is no mitral valve stenosis. Pulmonic Valve The pulmonic valve is likely normal. Tricuspid Valve Normal tricuspid valve structure. There is trace tricuspid valve regurgitation. The right ventricular systolic pressure is normal. The right ventricular systolic pressure is 26 mmHg. Normal right atrial pressure. There is no evidence of pulmonary hypertension. Great Vessels The pulmonary artery was not well visualized. There is no dilatation of the ascending aorta measuring 3.40 cm. Venous The inferior vena cava is normal in size and collapses greater than 50% with inspiration. Pericardium/Pleural There is no evidence of pericardial effusion. Prior Study Comparison No prior study available for comparison. Measurements 2D Linear Measurements IVSd: 1.20 0.6-0.9/0.6-1.0 cm LVIDd: 4.51 3.9-5.3/4.2-5.9 cm LVIDd Index: 2.34 2.4-3.2/2.2-3.1 cm/m2 LVIDs: 2.99 2.0-3.6 cm LVPWd: 1.16 0.7-1.1 cm LA Diam: 3.80 2.7-3.8/3.0-4.0 cm LAIDs Index: 1.97 1.5-2.3 cm/m2 LV Mass: 241.81 67-162/88-224 g LV Mass Index: 125.29 43-95/49-115 g/m2 LVOT Diam: 2.30 3.0+(-)1.3 cm 2D Systolic Function EF 4C: 66.70 >55% EF 2C: 61.90 >55% EF BiP: 63.00 >55% Mitral Valve MV Pk E: 0.81 MV PK A: 0.72 MV Decel Time: 212.00 E/A: 1.10 E'Lateral: 6.20 E'Medial: 5.98 E/E' Med: 13.60 E/E' Lat: 13.10 PHT: 62.00 MVA PHT: 3.55 Decel Mcclain: 3.84 Aortic Valve AoV Pk Matias: 1.43 AoV Mn Matias: 1.13 AoV VTI: 0.35 AoV Pk Grad: 8.00 Aov Mn Grad: 5.00 CHIO Cont.VTI: 2.68 LVOT LVOT Pk Matias: 0.99 LVOT Mn Matias: 0.71 LVOT VTI: 0.22 LVOT Pk Grad: 4.00 LVOT Mn Grad: 2.00 LVOT Diam: 2.30 LVOT Area: 4.15 Diastolic Function MV Pk E: 0.81 MV Pk A: 0.72 E/A: 1.10 E'Medial: 5.98 E/E' Med: 13.60 E' Laterial: 6.20 E/E' Lat: 13.10 Right Ventricle TAPSE (mm): 22.60 TVS' Matias: 12.40 Tricuspid Valve TR Pk Matias: 2.13 TR Pk Grad: 18.00 RA Press: 8.00 RVSP: 26.00 Great Vessels Aorta Sinus of Valsalva: 2.88 2.0-3.5 cm Ao Asc: 3.40 2.1-3.4 cm Updated in Other Vendor System with Status of Final Mina Holcomb MD electronically signed on 06/29/2024 1:26:14 PM with status of Final
== END ==
LOC: HO.CARD 08:56
PROVIDERS: PCP Family Medicine; Visit Provider Nurse Practitioner Family
DX: R06.00 Dyspnea, unspecified (principal)
CPT/HCPCS: 93306

== ENCOUNTER → 2024-06-29 08:59 | Outpatient (BNV) | payer OTHER, SELFPAY | PROVIDERS: PCP Family Medicine; Visit Provider Internal Medicine Cardiovascular Disease | DX: R06.02 Shortness of breath (principal) | CPT/HCPCS: 93306 ==

== ENCOUNTER 2024-07-04 13:50 | Outpatient (AMB) | payer OTHER, SELFPAY ==
--- NOTE | 2024-07-04 13:53 | MHC.PC.OV ---
Vital Signs 07/04/24 13:54 Height 5 ft 2.99 in Weight 243 lb 6 oz BMI 43.1 BP 120/68 Blood Pressure Location Lt brachial Position Sitting Respiration 16 Pulse 90 Pulse Source Pulse Oximeter Temp 97.8 F Temp Source Tympanic Pulse Oximetry (%) 96 Oxygen Delivery Method Room Air Intake Visit Reasons: CPE Intake Note: CPE Allergies procaine [From Novocain] Allergy (Mild, Verified 07/04/24 14:04) Redness of Skin Medication List - Last Reconciled 07/04/24 by Brendan Chew MD albuterol 90 mcg/actuation mcg inhalation amlodipine 10 mg PO DAILY bisacodyl (Dulcolax (bisacodyl)) 10 mg (2 x 5 mg) PO BEDTIME blood pressure monitor Automatic, Digital. Dx: I10. Daily As directed, 999 days/lifetime budesonide-formoterol 160-4.5 mcg/actuation (Symbicort) 2 puffs inhalation BID hydrocortisone 2.5% (Anusol-HC) 1 appl MI BID-QID PRN ipratropium-albuterol 0.5 mg-3 mg(2.5 mg base)/3 mL mL inhalation BID losartan-hydrochlorothiazide 100-25 mg 1 tab PO DAILY montelukast 10 mg PO BEDTIME naproxen 500 mg PO BID PRN 30 days olopatadine 0.7% (Pataday Once Daily Relief) 1 drp ophthalmic (eye) DAILY PRN 30 days prednisone 40 mg (2 x 20 mg) PO DAILY prednisone 10 mg PO DIRECTED tiotropium bromide (Spiriva with HandiHaler) 1 cap inhalation DAILY PRN Tobacco use date assessed: 07/04/24 Dental Screening Dental Screen Date: 07/04/24 Did you have a dental visit in the last 12 months?: Yes Did you have a dental problem in the last 6 months where you did not have access to dental care?: No Was dental information given to patient?: Patient has dentist HPI CPE HPI Details 59 y/o female presents for an extended exam with f/u labs and health maintenance. No recent CPE labs to review. Labs in February show elevated LDL cholesterol levels, elevated fasting glucose, elevated liver enzymes. Blood pressure today 120/68, 90p. She is on amlodipine 10mg, losartan-HCTZ 100-25.mg daily. She notes her nasal sinuses are frequently clogged. She has hx of environmental allergies. Recent mammogram this year was fine. Has complaints of painful varicose veins. Has complaints of R knee pain, mid back pain. HPI Comments History of Present Illness Details Documentation assistance for Brendan Chew MD, was provided by Shabbir Mulligan,? Compressor Station Engineer on 07/04/2024 at 2:15 PM EST. I, Dr. Chew, have read, observed, and verified documentation. [facility] Medical History Hemorrhoids Varicose veins of both legs with edema Asthma Surgical History History of colonoscopy (~2012) No pertinent past surgical history Family History Mother High blood pressure Glaucoma Father Radiation adverse effect Social History (Updated 07/04/24 @ 14:11 by Karissa Littlejohn) Household Members: Children Housing: House Are you a primary neurocritical care physician to a significant other at home: No Do you presently have visiting nurse or other home services: No Patient Tobacco Use Status: Never used Tobacco e-Cigarette/Vaping Use: Never Used service: No Current occupational status: other Cognitive needs: No Hearing needs: No Vision needs: No Questionnaire PHQ-9 Over the last 2 weeks, how often have you been bothered by any of the following problems? 1. Little interest or pleasure in doing things: not at all 2. Feeling down, depressed, or hopeless: not at all 3. Trouble falling or staying asleep, or sleeping too much: not at all 4. Feeling tired or having little energy: not at all 5. Poor appetite or overeating: not at all 6. Feeling bad about yourself - or that you are a failure or have let yourself or your family down: not at all 7. Trouble concentrating on things, such as reading the newspaper or watching television: not at all 8. Moving or speaking so slowly that other people could have noticed. Or the opposite - being so fidgety or restless that you have been moving around a lot more than usual: not at all 9. Thoughts that you would be better off or of hurting yourself in some way: not at all Total score: 0 Depression Screening Interpretation: Negative Depression Screening Done: Yes 50794 - PHQ-9 Billing: Yes Source: Developed by Drs. Gerardo Spaulding, Paulette Pennington, Mike Dennis and colleagues, with an educational orlando from [employer]. Thrive Questionnaire Date Thrive assessed: 02/29/24 AUDIT C Alcohol Use Questionnaire (AUDIT-C) 1. How often do you have a drink containing alcohol?: Never 3. How often do you have six or more drinks on one occasion?: Never Total Score: 0 Score Reviewed/Action Taken: Yes JOSE-7 AMB Questionnaire JOSE-7 Date JOSE - 7 assessed: 07/04/24 Feeling nervous, anxious, or on edge: 0 = Not at all Not being able to stop or control worryin = Not at all Worrying too much about different things: 0 = Not at all Trouble relaxin = Not at all Being so restless that it is hard to sit still: 0 = Not at all Becoming easily annoyed or irritable: 0 = Not at all Feeling afraid as if something awful might happen: 0 = Not at all Total JOSE-7 score (0-4 normal; 5-9 mild; 10-14 moderate; 15-21 severe): 0 Source: Developed by Drs. Gerardo Spaulding, Paulette Pennington, Mike Dennis and colleagues, with an educational orlando from [employer]. JOSE-7 Assessment Billing JOSE-7 Assessment Tool: JOSE-7 Assessment [id number] Review of Systems Const Denies chills, Denies fatigue, Denies fever(s), Denies headache(s) and Denies weakness Eyes Denies change in vision ENT Denies dizziness, Denies headache(s), Denies hearing loss, Reports nasal congestion, Denies sinus pain, Denies sinus pressure and Denies sore throat Card Denies chest pain, Denies lightheadedness, Denies dyspnea and Denies other (palpitations) Resp Denies cough, Denies dyspnea and Denies wheezing GI Denies abdominal pain, Denies melena, Denies hematochezia, Denies change in bowel habits, Denies dyspepsia and Denies nausea Denies hematuria and Denies dysuria Musc Details: Knee joint pain Denies abnormal gait, Reports back pain, Denies myalgias, Denies arthralgias, Denies numbness and Denies tingling Skin/Breast Denies rash, Denies unusual bruising and Denies wounds Neuro Denies abnormal gait, Denies dizziness, Denies headache(s), Denies memory loss, Denies numbness, Denies Sensory deficit (Neuro), Denies tingling and Denies weakness Psych Denies anxiety, Denies depression and Denies memory loss Endo Denies cold intolerance, Denies fatigue, Denies heat intolerance, Denies polydipsia and Denies polyuria Jonh/Lymph Denies easy bleeding and Denies easy bruising Aller/Immun Denies wheezing Physical exam (Primary Care) Vital Signs: Last Vital Signs Temp 97.8 F 07/04/24 13:54 Pulse 90 07/04/24 13:54 Resp 16 07/04/24 13:54 BP 120/68 07/04/24 13:54 Pulse Ox 96 07/04/24 13:54 Oxygen Delivery Method Room Air 07/04/24 13:54 BMI result Body Mass Index 43.1 Tobacco/Smoking Status: Tobacco use Status Tobacco use date assessed 07/04/24 07/04/24 14:07 Patient Tobacco Use Status Never used Tobacco 07/04/24 14:11 e-Cigarette/Vaping Use Never Used 07/04/24 14:11 Depression Screening Interpretation: Negative Thrive Assessment: Date of Thrive Assessment Date Thrive assessed 02/29/24 07/04/24 14:06 Const General: no acute distress, well developed, alert and awake Nutritional Appearance: well nourished and obese morbidly obese Orientation/consciousness: patient oriented x3 HENMT Head: Yes normocephalic and Yes atraumatic Ears: hearing grossly normal bilaterally and TM's normal bilaterally General nose exam: Normal external nose present and Normal nares present Mouth: Normal oral and palatal mucosa present and moist mucous membranes Teeth and gingiva: dentition normal Throat: Yes posterior oropharynx normal Eyes General: appearance normal, both eyes and all related structures Pupils: Equal, round and reactive pupils present and Pupil accommodation reflex normal EOM: EOMs intact bilaterally Neck Neck: Yes normal visual inspection, Yes no lymphadenopathy and Yes trachea midline Thyroid: Thyroid normal Carotids: no bruits Lymphatic: no lymphadenopathy noted Chest Chest palpation & inspection: normal inspection of the chest Resp Effort & Inspection: normal respiratory effort Auscultation: clear to auscultation bilaterally Cardio Rate: regular rate Rhythm: regular rhythm Heart sounds: S1 normal heart sound present, S2 normal heart sound present, no gallops, no murmurs and no rubs Bruits: no abdominal aortic bruits and no carotid bruits GI Palpation (GI): No Abdominal aortic bruit present, Soft to palpation, nontender, No hepatosplenomegaly present and No Rebound tenderness present Auscultation: normal bowel sounds General: Yes no CVA tenderness Back/Spine/Pelvis Back: no CVA tenderness Cervical Spine: cervical ROM normal and No Cervical spine tenderness Thoracic/Lumbar Spine: thoraco-lumbar ROM normal, No pain with thoraco-lumbar ROM, No thoracic spinal tenderness and No lumbar spinal tenderness Skin Lesions: no lesions Rashes: no rashes Trauma: no lacerations or abrasions Wounds: no wounds Nails: normal Neuro General: patient oriented x3 Cranial nerves: Yes Equal, round and reactive pupils present Cognition (Neuro): normal cognition Gait exam (Neuro): Normal gait present Motor exam (neuro): 5/5 motor strength present throughout Sensory Exam: No Sensory deficit (Neuro) Deep tendon reflexes (DTR's): Right patellar reflex intensity grade: 2+ and Left patellar reflex intensity grade: 2+ Extrem General: Yes normal to inspection and No edema Psych Appearance: grossly normal Affect: normal affect Attitude: cooperative Thought process: Normal thought process present Assessment and Plan Assessment & Plan (1) Hypertension: Code(s): I10 - Essential (primary) hypertension Plan: Blood?pressure?is?controlled.??Goal?is?less?than?140/90 Continue?current?medication?regimen (2) Allergic conjunctivitis: Code(s): H10.10 - Acute atopic conjunctivitis, unspecified eye Plan: Allergic?conjunctivitis?as?well?as?allergic?rhinitis?and?nasal?congestion Will?give?her?a?script?for?a?nasal?steroid?and?allergy?eye?drops (3) Screening for colon cancer: Code(s): Z12.11 - Encounter for screening for malignant neoplasm of colon Plan: [place] [place] Has?appointment?scheduled?in?October (4) Varicose veins of leg with edema: Code(s): I83.899 - Varicose veins of unspecified lower extremity with other complications Plan: Painful?varicose?veins Referred?to?vascular?surgery Advised?patient?to?elevate?legs?throughout?her?day (5) Right knee pain: Code(s): M25.561 - Pain in right knee Plan: Knee?joint?pain Will?give?patient?another?script?for?naproxen.??She?should?take?this?twice?a?day Also?advised?ice/heat (6) Environmental allergies: Code(s): Z91.09 - Other allergy status, other than to drugs and biological substances Plan: As?above,?patient?can?take?nasal?steroid?and?allergy?eyedrops (7) Breast cancer screening by mammogram: Code(s): Z12.31 - Encounter for screening mammogram for malignant neoplasm of breast Plan: Mammogram?in?May?was?negative?for?malignancies Will?continue?annual?screening (8) Screening for cervical cancer: Code(s): Z12.4 - Encounter for screening for malignant neoplasm of cervix Plan: Due?for?Pap?smear Referred?to?administrative personal assistant?at?patient?request (9) Mid back pain: Code(s): M54.9 - Dorsalgia, unspecified Plan: Midback?pain?at?left?latissimus?muscle?and?wrapping?to?serratus?muscles Painful?with?raising?her?arms?over?her?head Likely?latissimus?muscle?strain Can?use?naproxen?and?ice/heat (10) Elevated liver enzymes: Code(s): R74.8 - Abnormal levels of other serum enzymes Plan: Will?recheck?liver?enzymes?prior?to?next?visit (11) Elevated fasting glucose: Code(s): R73.01 - Impaired fasting glucose Plan: Will?check?fasting?blood?sugar?and?A1c?prior?to?next?visit (12) Elevated LDL cholesterol level: Code(s): E78.00 - Pure hypercholesterolemia, unspecified Plan: Will?recheck?lipids?prior?to?next?visit (13) Adult general medical exam: Code(s): Z00.00 - Encounter for general adult medical examination without abnormal findings Plan: 59-year-old?female?presents?for?an?extended?exam Stable Orders: Orders Hemoglobin A1c Today R73.01 - Impaired fasting glucose Comprehensive [place]. Panel Fast Today R74.8 - Abnormal levels of other serum enzymes, Z00.00 - Encounter for general adult medical examination without abnormal findings Lipid Panel Today E78.00 - Pure hypercholesterolemia, unspecified, Z00.00 - Encounter for general adult medical examination without abnormal findings Referrals CARE INFORMATION ASSOCIATE Referral Z12.4 - Encounter for screening for malignant neoplasm of cervix Vascular Surgery Referral I83.899 - Varicose veins of unspecified lower extremity with other complications Medications: New fluticasone propionate 50 mcg/actuation (Allergy Relief (fluticasone)) administer into each nostril 1 spray intranasal Q12H 30 days 16 grams 2RF olopatadine 0.7% 1 drp ophthalmic (eye) DAILY 30 days PRN 2.5 mL 2RF itching Changed From naproxen 500 mg PO BID 30 days PRN 60 tabs 0RF pain To naproxen 500 mg PO BID 90 days PRN 180 tabs 2RF pain Coding Level of Care Code Est Pt Level 4 (29785) Diagnoses Hypertension I10 Allergic conjunctivitis H10.10 Screening for colon cancer Z12.11 Varicose veins of leg with edema I83.899 Right knee pain M25.561 Environmental allergies Z91.09 Breast cancer screening by mammogram Z12.31 Screening for cervical cancer Z12.4 Mid back pain M54.9 Elevated liver enzymes R74.8 Elevated fasting glucose R73.01 Elevated LDL cholesterol level E78.00 Adult general medical exam Z00.00 Additional Codes JOSE-7 Assessment Billing - JOSE-7 Assessment Tool: JOSE-7 Assessment [id number] ([id number])
[2024-07-04 13:54] VITALS: BP 120/68; PULSE 90; RESP 16; TEMP 36.6; O2SAT 96; BMI 43.1
== END 2024-07-04 14:43 | disposition home or self-care (01) ==
PROVIDERS: Visit Provider Family Medicine
DX: Z00.00 Encounter for general adult medical examination without abnormal findings (principal); H10.13 Acute atopic conjunctivitis, bilateral; I10 Essential (primary) hypertension; M25.561 Pain in right knee; I83.899 Varicose veins of unspecified lower extremity with other complications; M54.9 Dorsalgia, unspecified; R74.8 Abnormal levels of other serum enzymes; R73.01 Impaired fasting glucose; Z12.11 Encounter for screening for malignant neoplasm of colon; Z91.09 Other allergy status, other than to drugs and biological substances; Z12.31 Encounter for screening mammogram for malignant neoplasm of breast
CPT/HCPCS: 99214; 99396

== ENCOUNTER 2024-07-23 10:56 | Outpatient (REF) | payer OTHER, SELFPAY ==
[2024-07-23 09:41] VITALS: PULSE 75; RESP 16; O2SAT 95
--- NOTE | 2024-07-23 14:08 | PFT_ITS ---
Flows: FEV1: 72 % of predicted at 1.96 L FVC: 87 % of predicted at 2.99 L FEV1/FVC: 66 % Bronchodilator response: Present Volumes: Total lung capacity: 83 % of predicted at 4.57 L Residual volume: 102 % of predicted at 1.85 L Slow vital capacity: 74 % of predicted at 2.72 L Expiratory reserve volume: 16 % of predicted at 0.15 L Diffusion capacity: Normal Impression: Moderate obstructive ventilatory defect with positive bronchodilator response. Decreased expiratory reserve volume suggests extrathoracic restriction likely secondary to abdominal obesity. MTDD
== END 2024-07-23 10:57 | disposition home or self-care (01) ==
LOC: HO.RESP 10:56
PROVIDERS: PCP Family Medicine; Visit Provider Nurse Practitioner Family
DX: J45.909 Unspecified asthma, uncomplicated (principal)
CPT/HCPCS: 94010; 94640; 94727; 94729

== ENCOUNTER → 2024-07-23 14:08 | Outpatient (BNV) | payer OTHER, SELFPAY | PROVIDERS: PCP Family Medicine; Visit Provider Internal Medicine Pulmonary Disease | DX: J45.909 Unspecified asthma, uncomplicated (principal) | CPT/HCPCS: 94060; 94727; 94729 ==

== ENCOUNTER 2024-07-29 12:50 | Outpatient (AMB) | payer OTHER, SELFPAY ==
--- NOTE | 2024-07-29 13:06 | A.OFFVIS_ITS ---
Vital Signs 07/29/24 13:09 Height 5 ft 3 in Weight 247 lb 5.738 oz BMI 43.8 BP 128/86 Blood Pressure Location Rt brachial Position Sitting Pulse 70 Pulse Source Pulse Oximeter Pulse Oximetry (%) 97 Oxygen Delivery Method Room Air Intake Visit Reasons: 2 month follow up Intake Note: Thu presents in office today for a scheduled 2 mos FUV. CC; Pt was rx'd dulcolax and hydrocortisone applicator at their last visit. Pt also had CT scan and labs performed as of 06/07 and 06/08 respectively Pt reports needing a refill of their dulcolax as well as the hydrocortisone. Pt states that the medications have been working well for her so far. Pt reports that she has been doing much better since their last visit. Research And Development Technician Required: Yes Research And Development Technician Services: Research And Development Technician Present Research And Development Technician Name: Mala [id number] Information Interpreted: non-clinical & clinical Accompanied by: Self / Same As Patient Allergies procaine [From Novocain] Allergy (Mild, Verified 08/02/24 11:07) Redness of Skin HPI HPI 2 month follow up: Details: LAST VISIT Screening for colon cancer Postprandial epigastric pain Abdominal pain, LUQ (left upper quadrant) Constipation Postprandial abdominal bloating Hemorrhoid Plan Left upper quadrant pain area nontender. Patient admits to feeling gassy and bloated postprandially. Could be gas trapping pain, however we will check lipase, transglutaminase. Patient reports to have trouble moving her bowels check her thyroid level, vitamin-B 12, folate, vitamin-D levels. Will send her for CT scan to rule out pancreatitis, diverticulitis. Patient will start taking Dulcolax daily to help her move her bowels. Proctosol send to pharmacy. Patient will return in 2 months to discuss going for colonoscopy. Message sent to surgical schedulers to book patient for the procedure. Patient is agreeable to this plan and verbalizes understanding of instructions. She was given the o pportunity to ask questions and all questions answered. ? Thank you for allowing me to participate in her care Orders Orders Transglutaminase Ab IgG 06/07/24 R10.9 Transglutaminase IgA 06/07/24 R10.9 Lipase 06/07/24 R10.9 TSH reflex Free T4 06/07/24 K59.00 Vitamin B12 and Folate 06/07/24 R19.7 Vitamin D 25-OH (D2 and D3) 06/07/24 E55.9 Blood Urea Nitrogen 06/07/[address] abdomen pelvis w IV con 05/31/24 R10.9, R10.12 Creatinine 06/07/24 R10.11 Medications New hydrocortisone 2.5% (Anusol-HC) use as directed 1 appl SC BID-QID PRN 30 grams 3RF hemorrhoids K64.9 bisacodyl (Dulcolax (bisacodyl)) 10 mg (2 x 5 mg) PO BEDTIME 180 tabs 4RF TODAY'S VISIT Patient is here today for follow-up and to discuss lab results and CT scan results we will also discuss going for colonoscopy. Patient reports that she is doing better able to move her bowels. Continues to have occasional pain in the left upper quadrant. Patient had normal lab work and no cause for patient's pain was found on CT scan. Patient does admit that the pain is there depending on what she eats. Patient does admit to be bloated postprandially occasionally. Patient denies any acid reflux. Denies any dyspepsia, dysphagia or odynophagi a. Patient denies any melena, hematochezia, unintentional weight loss or ribbon like stools. No trouble with anesthesia in the past. No history of sleep apnea. Not on any anticoagulation medication. Patient denies any cardiac or respiratory symptoms. [facility] Medical History Hemorrhoids Varicose veins of both legs with edema Asthma Surgical History History of colonoscopy (~2012) No pertinent past surgical history Family History Mother High blood pressure Glaucoma Father Radiation adverse effect Social History Household Members: Children Housing: House Are you a primary personal care home administrator to a significant other at home: No Do you presently have visiting nurse or other home services: No Patient Tobacco Use Status: Never used Tobacco e-Cigarette/Vaping Use: Never Used service: No Current occupational status: other Cognitive needs: No Hearing needs: No Vision needs: No Review of Systems Const Denies weight gain and Denies weight loss ENT Reports no additional complaints, Denies dysphagia and Denies odynophagia Card Reports no additional complaints Resp Reports no additional complaints GI Reports abdominal pain (LUQ), Denies belching, Denies melena, Reports bloating, Denies change in bowel habits, Reports constipation, Denies dysphagia, Denies excessive flatus, Denies dyspepsia, Denies heartburn, Denies diarrhea, Reports loose stools, Denies nausea, Denies odynophagia and Denies vomiting Reports no additional complaints Musc Reports no additional complaints Neuro Reports no additional complaints Psych Reports no additional complaints Endo Reports no additional complaints Physical Exam Vital Signs: Last Vital Signs Pulse 70 07/29/24 13:09 BP 128/86 07/29/24 13:09 Pulse Ox 97 07/29/24 13:09 Oxygen Delivery Method Room Air 07/29/24 13:09 BMI result Body Mass Index 43.8 Const General: healthy appearing and no acute distress Nutritional Appearance: obese Orientation/consciousness: patient oriented x3 Resp Effort & Inspection: normal respiratory effort, able to speak in complete sentences, no tracheal deviation and symmetric chest movement Auscultation: clear to auscultation bilaterally Cardio Rate: regular rate GI Inspection: Yes normal to inspection, No distended and Yes obesity Palpation (GI): Soft to palpation, not firm, nontender and No hepatosplenomegaly present Auscultation: normal bowel sounds General: Yes no CVA tenderness Back/Spine/Pelvis Back: no CVA tenderness Skin General skin exam: elasticity normal, turgor normal and dry skin Neuro General: patient oriented x3 Psych Appearance: grossly normal Mental Status: mental status grossly normal Results Reviewed Results Reviewed: CT SCAN OF ABDOMEN AND PELVIS 06/08/2024 ABDOMEN/PELVIS: Peritoneal Space: No significant free air or free fluid identified. Liver, Gallbladder, Biliary Tree: The liver is enlarged measuring 19.4 cm in cephalocaudad dimension with decreased attenuation consistent with hepatic steatosis. No focal hepatic lesion or biliary ductal dilatation is present. The gallbladder is unremarkable with no evidence of radiopaque gallstones, gallbladder wall thickening, or obvious pericholecystic inflammatory changes. Pancreas: Unremarkable. Spleen: Unremarkable. Adrenal Glands: Unremarkable. Kidneys and Ureters: The kidneys are normal in size, shape, and attenuation. No hydronephrosis, hydroureter, or calculi seen. No perinephric stranding. Bladder: Unremarkable. Gastrointestinal Tract: The small and large bowel are unremarkable. The appendix is unremarkable. Abdominal Wall: There is a tiny periumbilical hernia seen containing only fat along with tiny inguinal hernias containing only fat. Lymph Nodes: No lymphadenopathy. Vascular: The aorta appears normal. The IVC appears unremarkable. PELVIC VISCERA: The uterus and adnexa are unremarkable. OSSEUS STRUCTURES: Moderate degenerative changes are noted in the spine from L4 through S1. No bony destructive lesions are seen. CT/CT abdomen pelvis w IV con IMPRESSION: 1. A cause for the patient's cough and abdominal pain has not been found. 2. Incidental note made of mild bronchial thickening, calcified granulomas, enlarged fatty liver and degenerative changes in the spine. Laboratory Tests 06/07/24 10:40 Lipase 19 Vitamin B12 455 25-OH Vitamin D Total 26 L Folate 9.1 TSH 1.77 Tiss Transglutamin IgG <1.0 Tiss Transglutamin IgA <1.0 Assessment & Plan Assessment & Plan (1) Screening for colon cancer: Code(s): Z12.11 - Encounter for screening for malignant neoplasm of colon Category: Medical (2) Postprandial abdominal bloating: Code(s): R14.0 - Abdominal distension (gaseous) (3) Abdominal pain, LUQ (left upper quadrant): Code(s): R10.12 - Left upper quadrant pain Plan Patient will continue taking Dulcolax. Patient also can take fiber. Patient will stop fiber 1 week before going for colonoscopy. What to expect before during and after procedure discussed with patient. Stressed the importance of good bowel prep and clear liquid diet day before procedure. I will see patient after the procedure, sooner on as needed basis. She is agreeable to this plan and verbalizes understanding of instructions. She was given the opportunity to ask questions and all questions answered. Thank you for allowing me to participate in her care Medications: New polyethylene glycol 3350 (Miralax) As directed by gastroenterology department at [facility] 238 grams PO ONCE 238 grams 0RF Z12.11 - Encounter for screening for malignant neoplasm of colon methylcellulose (laxative) (Citrucel) take it with full glass of water 500 mg PO DAILY 90 tabs 2RF K59.00 - Constipation, unspecified Refilled bisacodyl (Dulcolax (bisacodyl)) 10 mg (2 x 5 mg) PO BEDTIME 180 tabs 4RF Coding Level of Care Code Est Pt Level 4 (44833) Diagnoses Screening for colon cancer Z12.11 Postprandial abdominal bloating R14.0 Abdominal pain, LUQ (left upper quadrant) R10.12 Time Spent (min) 35 Comment 20 minutes spent with patient and additional 15 minutes spent reviewing her records
[2024-07-29 13:09] VITALS: BP 128/86; PULSE 70; O2SAT 97; BMI 43.8
== END 2024-07-29 14:21 | disposition home or self-care (01) ==
PROVIDERS: PCP Family Medicine; Visit Provider Nurse Practitioner Family
DX: Z12.11 Encounter for screening for malignant neoplasm of colon (principal); R14.0 Abdominal distension (gaseous); R10.12 Left upper quadrant pain; Z01.818 Encounter for other preprocedural examination
CPT/HCPCS: 99214

== ENCOUNTER → 2024-07-29 12:50 | Outpatient (BNVA) | payer OTHER, SELFPAY | PROVIDERS: PCP Family Medicine; Visit Provider Nurse Practitioner Family | DX: Z12.11 Encounter for screening for malignant neoplasm of colon (principal); R14.0 Abdominal distension (gaseous); R10.12 Left upper quadrant pain | CPT/HCPCS: 99212 ==

== ENCOUNTER 2024-08-02 10:47 | Outpatient (AMB) | payer OTHER, SELFPAY ==
[2024-08-02 11:02] VITALS: BP 148/82; PULSE 75; O2SAT 96; BMI 43.9
--- NOTE | 2024-08-02 11:02 | A.OFFVIS_ITS ---
Vital Signs 08/02/24 11:02 Height 5 ft 3 in Weight 248 lb BMI 43.9 BP 148/82 H Blood Pressure Location Lt brachial Position Sitting Pulse 75 Pulse Source Pulse Oximeter Pulse Oximetry (%) 96 Oxygen Delivery Method Room Air Intake Visit Reasons: Asthma/PFT Follow Up Licensed Optician Required: Yes Licensed Optician Language: Bol[place]ian Licensed Optician Services: Licensed Optician Present Licensed Optician Name: [id number] Ana Allergies procaine [From Novocain] Allergy (Mild, Verified 08/02/24 11:07) Redness of Skin HPI HPI Asthma/PFT Follow Up: Details: Thu is a pleasant 59 year old female, never smoker, with underlying asthma, severe YAA and HTN. She has been moderately controlled on Symbicort, Spiriva, singulair, duoneb BID and albuterol MDI PRN. Prior documents from [facility] states pneumosclerosis and left sided heart failure is a direct result from radiation exposure from [place] nuclear reactor accident in 1985. At the last visit, she was sent for chest CT, echo and PFT. She presents today to review. Since the last visit, she reports better control of symptoms and denies any visits to urgent care/hospital related to respiratory distress. [facility] Medical History Hemorrhoids Varicose veins of both legs with edema Asthma Surgical History History of colonoscopy (~2012) No pertinent past surgical history Family History Mother High blood pressure Glaucoma Father Radiation adverse effect Social History Household Members: Children Housing: House Are you a primary healthcare consultant to a significant other at home: No Do you presently have visiting nurse or other home services: No Patient Tobacco Use Status: Never used Tobacco e-Cigarette/Vaping Use: Never Used service: No Current occupational status: other Cognitive needs: No Hearing needs: No Vision needs: No Review of Systems Const Denies chills, Denies excessive sweating, Denies fever(s), Denies headache(s) and Denies night sweats Eyes Denies dry eyes, Denies irritation and Denies itchy eyes ENT Reports Normal hearing present, Denies headache(s), Denies nasal congestion, Denies nasal discharge, Denies post nasal drip and Denies sore throat Card Denies chest pain, Denies chest pain at rest, Denies chest pain with activity, Denies claudication, Denies leg edema, Denies dyspnea, Denies dyspnea on exertion, Denies orthopnea and Denies paroxysmal nocturnal dyspnea Resp Denies chest congestion, Denies cough, Denies excessive phlegm production, Denies pain on inspiration, Denies pain with cough, Denies dyspnea, Denies dyspnea on exertion, Denies stridor and Denies wheezing Musc Denies myalgias Neuro Reports Normal hearing present and Denies headache(s) Endo Denies excessive sweating Jonh/Lymph Denies lymphadenopathy Aller/Immun Denies itchy eyes, Denies seasonal rhinorrhea and Denies wheezing Physical Exam Vital Signs: Last Vital Signs Pulse 75 08/02/24 11:02 BP 148/82 H 08/02/24 11:02 Pulse Ox 96 08/02/24 11:02 Oxygen Delivery Method Room Air 08/02/24 11:02 BMI result Body Mass Index 43.9 Const General: cooperative, healthy appearing, comfortable, no acute distress, well developed and alert Nutritional Appearance: obese Orientation/consciousness: patient oriented x3 Limitations: no limitations HEENT Head: Yes normal to inspection, Yes normocephalic and Yes atraumatic Ears: hearing grossly normal bilaterally and external ears normal Eyes General: appearance normal, both eyes and all related structures Eyelids: Yes eyelids normal Sclerae: sclerae normal EOM: EOMs intact bilaterally Neck Neck: Yes normal visual inspection and Yes no lymphadenopathy Lymphatic: no lymphadenopathy noted Chest Chest palpation & inspection: normal inspection of the chest Resp Effort & Inspection: normal respiratory effort, able to speak in complete sentences, no audible wheezes, no cough, no stridor, not tachypneic, no tripod positioning and no use of accessory muscles Auscultation: clear to auscultation bilaterally Cardio Jugular venous distension: no JVD Rate: regular rate Rhythm: regular rhythm Skin Other: warm, dry General skin exam: no rashes or lesions noted Neuro General: patient oriented x3 Cranial nerves: Yes Normal hearing present Cognition (Neuro): normal cognition Gait exam (Neuro): Normal gait present Extrem General: Yes normal to inspection, Yes capillary refill normal, Yes no clubbing, cyanosis or edema and Yes no pedal edema Psych Appearance: grossly normal and well kempt Speech and movement: Normal speech and movement present and Clear speech present Affect: normal affect Attitude: cooperative Thought process: Normal thought process present Thought content: Normal thought content present Insight: Good insight present (Psych) Judgement: Good judgement present (Psych) Results Reviewed Results Reviewed: [address] [address] Cardiology Report Signed Patient: Thu Baron MR#: [id number] : 1965 Acct:[id number] Age/Sex: 59 / F ADM Date: 06/29/24 Loc: HO.CARD [address] [address] [address] Scan Report Signed Patient: Thu Baron MR#: [id number] : 1965 Acct:[id number] Age/Sex: 59 / F ADM Date: 06/08/24 Loc: HO.CT Attending Dr: Yessica Braswell [facility] Ordering Physician: Sofia Ivory NP Date of Service: 06/08/24 Procedure(s): CT chest wo IV con Accession Number(s): [id number] cc: Sofia Ivory ABRASIVE MIXER HELPER~ EXAMINATION: CT CHEST WITHOUT IV CONTRAST CT ABDOMEN AND PELVIS WITH CONTRAST CLINICAL INFORMATION: Reason for Exam R05.9 - Cough, unspecified. COMPARISON: No pertinent prior studies are available for comparison. TECHNIQUE: Multidetector volumetric imaging was performed through the chest without IV contrast. Subsequently, during the infusion of 85 mL of Omnipaque 350, scans were performed through the abdomen and pelvis. Sagittal and coronal reformatted images were obtained on the technologist's workstation. This CT examination was performed using dose optimization techniques as appropriate, variously including the following: *Automated exposure control *Adjustment of mA and/or kV according to patient size (this includes techniques or standardized protocols for targeted exams where dose is matched to indication/reason for exam; i.e. extremities or head) *Use of iterative reconstruction technique DLP: 943 mGy-cm FINDINGS: CHEST: Lungs: There is mild bronchial thickening. Some scattered calcified granulomas are present. The lungs are otherwise clear without focal opacity or concerning nodule. Mediastinum: The mediastinum is normal. The central vascular structures are unremarkable. No hilar or mediastinal lymphadenopathy. Pericardium/Pleura: No significant effusion. No pleural mass or thickening. Chest Wall/Axilla: Unremarkable. ABDOMEN/PELVIS: Peritoneal Space: No significant free air or free fluid identified. Liver, Gallbladder, Biliary Tree: The liver is enlarged measuring 19.4 cm in cephalocaudad dimension with decreased attenuation consistent with hepatic steatosis. No focal hepatic lesion or biliary ductal dilatation is present. The gallbladder is unremarkable with no evidence of radiopaque gallstones, gallbladder wall thickening, or obvious pericholecystic inflammatory changes. Pancreas: Unremarkable. Spleen: Unremarkable. Adrenal Glands: Unremarkable. Kidneys and Ureters: The kidneys are normal in size, shape, and attenuation. No hydronephrosis, hydroureter, or calculi seen. No perinephric stranding. Bladder: Unremarkable. Gastrointestinal Tract: The small and large bowel are unremarkable. The appendix is unremarkable. Abdominal Wall: There is a tiny periumbilical hernia seen containing only fat along with tiny inguinal hernias containing only fat. Lymph Nodes: No lymphadenopathy. Vascular: The aorta appears normal. The IVC appears unremarkable. PELVIC VISCERA: The uterus and adnexa are unremarkable. OSSEUS STRUCTURES: Moderate degenerative changes are noted in the spine from L4 through S1. No bony destructive lesions are seen. CT/CT chest wo IV con IMPRESSION: 1. A cause for the patient's cough and abdominal pain has not been found. 2. Incidental note made of mild bronchial thickening, calcified granulomas, enlarged fatty liver and degenerative changes in the spine. Fleischner guidelines were followed. Dictated By: Jamari Claudio MD Signed By: <Electronically signed by Jamari Claudio MD in OV> 06/09/24 0907 DD/ 1558 TD/TT: Fitness Attendant: SHANELL Attending Dr: Sofia Ivory NP Ordering Physician: Sofia Ivory NP Date of Service: 06/29/24 Procedure(s): CA echo transthoracic complete Accession Number(s): cc: Sofia Ivory NP~ Transthoracic Echocardiogram Patient (Last, First, Middle): Thu Baron, Gender: Female Date of : 1965 Age: 59 Procedure Date: 06/29/2024 Procedure Type: Transthoracic Echocardiogram Location: OP Height: 160.02 cm Weight: 90.01 kg BSA: 1.93 m2 Heart Rate: 80 bpm BP: 146 / 90 mmHg Mine Analyst: TO Referring MD: Sofia Ivory ABRASIVE MIXER HELPER Book Salesman: Mina Holcomb MD Symptoms: R06.00 - Dyspnea, unspecified Study Quality: Adequate ECG Rhythm: Sinus Conclusions: - Essentially normal study Findings Left Ventricle Normal left ventricular size, thickness, and systolic function. The visually estimated ejection fraction is between 60-65%. Spectral Doppler is indicative of a normal filling pattern. Right Ventricle Normal right ventricular cavity size and systolic function. Atria Both atria are normal in size. Interatrial shunt cannot be excluded. Aortic Valve Normal aortic valve structure and function. There is no aortic valve stenosis. There is no aortic valve regurgitation. Mitral Valve Normal mitral valve structure and function. There is trace mitral valve regurgitation. There is no mitral valve stenosis. Pulmonic Valve The pulmonic valve is likely normal. Tricuspid Valve Normal tricuspid valve structure. There is trace tricuspid valve regurgitation. The right ventricular systolic pressure is normal. The right ventricular systolic pressure is 26 mmHg. Normal right atrial pressure. There is no evidence of pulmonary hypertension. Great Vessels The pulmonary artery was not well visualized. There is no dilatation of the ascending aorta measuring 3.40 cm. Venous The inferior vena cava is normal in size and collapses greater than 50% with inspiration. Pericardium/Pleural There is no evidence of pericardial effusion. Prior Study Comparison No prior study available for comparison. Measurements 2D Linear Measurements IVSd: 1.20 0.6-0.9/0.6-1.0 cm LVIDd: 4.51 3.9-5.3/4.2-5.9 cm LVIDd Index: 2.34 2.4-3.2/2.2-3.1 cm/m2 LVIDs: 2.99 2.0-3.6 cm LVPWd: 1.16 0.7-1.1 cm LA Diam: 3.80 2.7-3.8/3.0-4.0 cm LAIDs Index: 1.97 1.5-2.3 cm/m2 LV Mass: 241.81 67-162/88-224 g LV Mass Index: 125.29 43-95/49-115 g/m2 LVOT Diam: 2.30 3.0+(-)1.3 cm 2D Systolic Function EF 4C: 66.70 >55% EF 2C: 61.90 >55% EF BiP: 63.00 >55% Mitral Valve MV Pk E: 0.81 MV PK A: 0.72 MV Decel Time: 212.00 E/A: 1.10 E'Lateral: 6.20 E'Medial: 5.98 E/E' Med: 13.60 E/E' Lat: 13.10 PHT: 62.00 MVA PHT: 3.55 Decel [place]: 3.84 Aortic Valve AoV Pk Matias: 1.43 AoV Mn Matias: 1.13 AoV VTI: 0.35 AoV Pk Grad: 8.00 Aov Mn Grad: 5.00 CHIO Cont.VTI: 2.68 LVOT LVOT Pk Matias: 0.99 LVOT Mn Matias: 0.71 LVOT VTI: 0.22 LVOT Pk Grad: 4.00 LVOT Mn Grad: 2.00 LVOT Diam: 2.30 LVOT Area: 4.15 Diastolic Function MV Pk E: 0.81 MV Pk A: 0.72 E/A: 1.10 E'Medial: 5.98 E/E' Med: 13.60 E' Laterial: 6.20 E/E' Lat: 13.10 Right Ventricle TAPSE (mm): 22.60 TVS' Matias: 12.40 Tricuspid Valve TR Pk Matias: 2.13 TR Pk Grad: 18.00 RA Press: 8.00 RVSP: 26.00 Great Vessels Aorta Sinus of Valsalva: 2.88 2.0-3.5 cm Ao Asc: 3.40 2.1-3.4 cm Updated in Other Vendor System with Status of Final Mina Holcomb MD electronically signed on 06/29/2024 1:26:14 PM with status of Final Dictated By: Mina Holcomb MD Signed By: <Electronically signed by Mina Holcomb MD in OV> 06/29/24 1326 DD/ 0914 TD/TT: Fitness Attendant: Assessment & Plan Assessment & Plan (1) Asthma: Code(s): J45.909 - Unspecified asthma, uncomplicated Category: Medical (2) Environmental allergies: Code(s): Z91.09 - Other allergy status, other than to drugs and biological substances Category: Medical (3) Cough: Code(s): R05.9 - Cough, unspecified Category: Medical (4) Dyspnea: Code(s): R06.00 - Dyspnea, unspecified Category: Medical Plan Reviewed chest CT which did not reveal any signs suggestive of pulmonary fibrosis or ILD. Reviewed echo which was unremarkable. Reviewed PFT which revealed moderate obstructive defect with significant response to bronchodilators and DLCO normal, suggestive of moderate asthma. Encouraged patient to continue current regimen as symptoms are moderately controlled. Will send refills. All questions were answered and patient is in agreement of plan. Will follow up in 3- 4 months or sooner if needed. Medications: New budesonide-formoterol 160-4.5 mcg/actuation (Symbicort) 2 puffs inhalation BID 10.2 grams 6RF montelukast 10 mg PO BEDTIME 30 tabs 6RF tiotropium bromide (Spiriva with HandiHaler) puncture 1 cap using device; one dose = 2 inhalations 1 cap inhalation DAILY 60 inhalations 6RF Coding Level of Care Code Est Pt Level 4 (04089) Diagnoses Asthma J45.909 Environmental allergies Z91.09 Cough R05.9 Dyspnea R06.00
== END 2024-08-02 11:43 | disposition home or self-care (01) ==
PROVIDERS: PCP Family Medicine; Visit Provider Nurse Practitioner Family
DX: J45.909 Unspecified asthma, uncomplicated (principal); Z91.09 Other allergy status, other than to drugs and biological substances; R05.9 Cough, unspecified; R06.00 Dyspnea, unspecified
CPT/HCPCS: 99214

== ENCOUNTER → 2024-08-02 10:47 | Outpatient (BNVA) | payer OTHER, SELFPAY | PROVIDERS: PCP Family Medicine; Visit Provider Nurse Practitioner Family | DX: J45.909 Unspecified asthma, uncomplicated (principal); R05.9 Cough, unspecified; R06.00 Dyspnea, unspecified; Z91.09 Other allergy status, other than to drugs and biological substances | CPT/HCPCS: 99212 ==

== ENCOUNTER 2024-09-27 13:50 | Outpatient (AMB) | payer OTHER, SELFPAY ==
--- NOTE | 2024-09-27 14:02 | MHC.OFFVIS ---
Intake Visit Reasons: SURGEON/PRESIDENT/PCP referral for VV Intake Note: New patient presents for VV. Patient has bilateral swelling and pain. Right leg worse. Car Spotter Required: Yes Car Spotter Name: Reji [id number] Accompanied by: Self / Same As Patient Allergies procaine [From Novocain] Allergy (Mild, Verified 09/27/24 14:03) Redness of Skin HPI HPI SURGEON/PRESIDENT/PCP referral for VV: Details: We utilized the [place]ian tooth cutter contact wheel for communication. Thu, a pleasant 59-year-old [place]isian-speaking only female patient, has been referred to us from her PCP office for over a year of increased pain and swelling in her lower extremities. Complaints include pain over varicosities, swelling of lower extremities, cramping, fatigue, and heaviness of the lower extremities. It has been affecting their daily activities including walking and standing. It is noted more so in right leg. She has never been a smoker and is not a diabetic. Patient denies any previous venous surgery or injections. Patient denies any history of DVT/ PE. Patient denies any history of phlebitis. Trial of compression includes - elevation, which helps a little bit. They now present for vascular evaluation regarding their varicose veins. [facility] Medical History Hemorrhoids Varicose veins of both legs with edema Asthma Surgical History History of colonoscopy (~2012) No pertinent past surgical history Family History Mother High blood pressure Glaucoma Father Radiation adverse effect Social History Household Members: Children Housing: House Are you a primary veterinarian laboratory animal care to a significant other at home: No Do you presently have visiting nurse or other home services: No Patient Tobacco Use Status: Never used Tobacco e-Cigarette/Vaping Use: Never Used service: No Current occupational status: other Cognitive needs: No Hearing needs: No Vision needs: No Review of Systems Const Reports as per HPI and Denies weakness ENT Reports Normal hearing present and Denies dizziness Card Reports as per HPI, Denies chest pain, Denies chest pain at rest, Denies chest pain with activity, Denies dyspnea and Denies dyspnea on exertion Resp Reports as per HPI, Denies cough, Denies dyspnea and Denies dyspnea on exertion GI Reports as per HPI, Denies abdominal pain, Denies nausea and Denies vomiting Musc Denies numbness Skin/Breast Reports as per HPI, Denies erythema and Denies wounds Neuro Reports Normal hearing present, Denies dizziness, Denies numbness, Denies Sensory deficit (Neuro) and Denies weakness Psych Reports no additional complaints Endo Reports no additional complaints Physical Exam Const General: healthy appearing and no acute distress Orientation/consciousness: patient oriented x3 HEENT Head: Yes normal to inspection Ears: hearing grossly normal bilaterally Mouth: Normal oral and palatal mucosa present Resp Effort & Inspection: normal respiratory effort and able to speak in complete sentences Auscultation: clear to auscultation bilaterally Cardio Jugular venous distension: no JVD Rate: regular rate Rhythm: regular rhythm Heart sounds: S1 normal heart sound present and S2 normal heart sound present Bruits: no abdominal aortic bruits, no carotid bruits, no femoral bruits and no renal bruits Peripheral pulses: Peripheral pulses 2+ throughout GI Inspection: Yes normal to inspection Palpation (GI): No Abdominal aortic bruit present Skin General skin exam: no rashes or lesions noted Wounds: no wounds Hair: normal Neuro General: patient oriented x3 Cranial nerves: Yes Normal hearing present Cognition (Neuro): normal cognition Gait exam (Neuro): Normal gait present Motor exam (neuro): 5/5 motor strength present throughout Sensory Exam: No Sensory deficit (Neuro) Extrem Other: Bilateral lower extremities: +1 edema noted. Palpable DP pulses. Discoloration noted from mid pena to the toes. Right lower extremity: Varicose veins and tortuosity is noted around her right knee anteriorly and medially. Also some spider veins noted in the right lower extremity. CEAP: C - 4 E - primary A - superficial P - reflux General: Yes normal to inspection, Yes full ROM, Yes capillary refill normal and Yes normal gait Assessment & Plan Assessment & Plan (1) Varicose veins of both lower extremities with inflammation: Code(s): I83.11 - Varicose veins of right lower extremity with inflammation; I83.12 - Varicose veins of left lower extremity with inflammation Category: Medical Plan: Thu presents today as a referral from her PCP for ongoing bilateral lower extremity swelling and pain, worse with activity. She also states that the pain is worse at night and she has difficulty getting comfortable to go to sleep. In short, the patient has evidence of venous insufficiency. I have discussed the pathophysiology with the patient. We have discussed conservative measures including compression, elevation, and exercise. We are unable to give her the paperwork for compression stockings, due to it not being in [place]ian. We attempted to discuss with through the tooth cutter contact wheel about compression stockings. The patient had an opportunity to ask questions regarding the treatment plan. All questions were answered. No major barriers to understanding were identified. The patient expressed understanding and agreement with the above treatment plan. The patient is aware they should contact our office by phone for worsening of the current condition or the appearance of new symptoms. Thank you for allowing me to participate in the vascular care of this patient. If you have any questions or concerns regarding the treatment for the above condition please do not hesitate to contact me. The office telephone contact is [phone]. This note is constructed using voice recognition software. While every effort has been made to ensure accuracy, geothermal operating engineer errors may have been included. Thank you for allowing me to participate in the care of your patient. Yours sincerely, YESSENIA Braswell Orders: Orders US venous duplex LE BI 1 Week I83.11 - Varicose veins of right lower extremity with inflammation, I83.12 - Varicose veins of left lower extremity with inflammation Coding Level of Care Code New Pt Level 4 (17493) Diagnoses Varicose veins of both lower extremities with inflammation I83.11; I83.12
== END 2024-09-27 14:17 | disposition home or self-care (01) ==
PROVIDERS: PCP Family Medicine; Visit Provider Physician Assistant Surgical
DX: I83.11 Varicose veins of right lower extremity with inflammation (principal); I83.12 Varicose veins of left lower extremity with inflammation
CPT/HCPCS: 99204

== ENCOUNTER → 2024-09-27 13:50 | Outpatient (BNVA) | payer OTHER, SELFPAY | PROVIDERS: PCP Family Medicine; Visit Provider Physician Assistant Surgical | DX: I83.11 Varicose veins of right lower extremity with inflammation (principal); I83.12 Varicose veins of left lower extremity with inflammation | CPT/HCPCS: 99202 ==

== ENCOUNTER 2024-10-13 10:39 | Day surgery (SDC) | payer OTHER, SELFPAY ==
[2024-10-11 10:23] VITALS: BMI 43.7
--- NOTE | 2024-10-12 09:43 | P.CONAN_ITS ---
Documented by User: Gabrielle Aguilar NP 10/12/24 09:44 HPI - Anesthesia Eval Consult details Narrative: 59yo F for Colonoscopy PMFSH Active Problems Active Problems: All Active Problems Varicose veins of both lower extremities with inflammation (Acute) Severe obesity (BMI >= 40) (Acute) Obesity (Acute) Elevated LDL cholesterol level (Acute) Elevated fasting glucose (Acute) Elevated liver enzymes (Acute) Mid back pain (Acute) Allergic conjunctivitis (Acute) Adult general medical exam (Acute) Screening for cervical cancer (Acute) Dyspnea (Acute) History of radiation exposure (Acute) H/O chemical exposure (Acute) Environmental allergies (Acute) Cough (Acute) Varicose veins of leg with edema (Acute) Eye irritation (Acute) Osteochondrosis (Acute) Hypertension (Acute) Asthma (Acute) Breast cancer screening by mammogram (Acute) Screening for colon cancer (Acute) Low back pain (Acute) Right knee pain (Acute) Past Medical History Medical History Hemorrhoids Varicose veins of both legs with edema Asthma Family History Family History Mother High blood pressure Glaucoma Father Radiation adverse effect Surgical History Surgical History History of colonoscopy (~2012) No pertinent past surgical history Social History Social History Household Members: Children Housing: House Are you a primary home health care coordinator to a significant other at home: No Do you presently have visiting nurse or other home services: No Patient Tobacco Use Status: Never used Tobacco e-Cigarette/Vaping Use: Never Used Advance Directives: No Advance Directives Information Provided: Yes service: No Current occupational status: other Cognitive needs: No Hearing needs: No Vision needs: No Meds Allergies Allergy/AdvReac Type Severity Reaction Status Date / Time procaine [From Novocain] Allergy Mild Redness of Verified 10/13/24 10:43 Skin Home Medications ?Medication ?Instructions ?Recorded ?Confirmed ?Last Taken ?Type albuterol 90 mcg/actuation aerosol mcg inhalation 02/29/24 07/04/24 10/13/24 History inhaler amlodipine 10 mg tablet 10 mg PO DAILY 02/29/24 10/13/24 10/13/24 History ipratropium 0.5 mg-albuterol 3 mg ml inhalation BID 02/29/24 07/04/24 Unknown History (2.5 mg base)/3 mL nebulization soln losartan 100 1 tab PO DAILY 02/29/24 10/13/24 Unknown History mg-hydrochlorothiazide 25 mg tablet tiotropium bromide 18 mcg capsule 1 cap inhalation DAILY PRN 05/04/24 10/13/24 Unknown History with inhalation device (Spiriva Respiratory Distress with HandiHaler) Exam Height,Weight and Vital Signs: Height 5 ft 3 in Weight 112.037 kg Assessment and Plan Assessment Anesthesia Assessment: Chart Reviewed Documented by User: Laure Hoffman MD 10/13/24 10:58 PMFSH Past Medical History Medical History Hemorrhoids Varicose veins of both legs with edema Asthma Family History Family History Mother High blood pressure Glaucoma Father Radiation adverse effect Family history of problems with anesthesia: No Surgical History Surgical History History of colonoscopy (~2012) No pertinent past surgical history History of Problems with Anesthesia: No Social History Social History Household Members: Children Housing: House Are you a primary home health care coordinator to a significant other at home: No Do you presently have visiting nurse or other home services: No Patient Tobacco Use Status: Never used Tobacco e-Cigarette/Vaping Use: Never Used Advance Directives: No Advance Directives Information Provided: Yes service: No Current occupational status: other Cognitive needs: No Hearing needs: No Vision needs: No Meds Allergies Allergy/AdvReac Type Severity Reaction Status Date / Time procaine [From Novocain] Allergy Mild Redness of Verified 10/13/24 10:43 Skin Home Medications ?Medication ?Instructions ?Recorded ?Confirmed ?Last Taken ?Type albuterol 90 mcg/actuation aerosol mcg inhalation 02/29/24 07/04/24 10/13/24 History inhaler amlodipine 10 mg tablet 10 mg PO DAILY 02/29/24 10/13/24 10/13/24 History ipratropium 0.5 mg-albuterol 3 mg ml inhalation BID 02/29/24 07/04/24 Unknown History (2.5 mg base)/3 mL nebulization soln losartan 100 1 tab PO DAILY 02/29/24 10/13/24 Unknown History mg-hydrochlorothiazide 25 mg tablet tiotropium bromide 18 mcg capsule 1 cap inhalation DAILY PRN 05/04/24 10/13/24 Unknown History with inhalation device (Spiriva Respiratory Distress with HandiHaler) Exam Airway Mallampati Class: II TM Dist: >3cm Neck ROM: Full Heart: rrr Lungs: cta Assessment and Plan Assessment Anesthesia Assessment: Anesthesia Plan Discussed Final Anesthetic Review Family History of Problems with Anesthesia: No History of Problems with Anesthesia: No NPO: Yes ASA Class: II Final Preanesthetic Review: No Changes in Pt Med Stat, Meds/Allgs Chart Reviewed, Consent Obtained/Reviewed and Anes Risks/Benef Reviewed Patient Risk: Intermediate Procedure Risk: Low Anesthetic Plan Anesthetic Plan: MAC: Disposition: Standard PACU
[2024-10-13 10:50] VITALS: BP 167/94; PULSE 86; RESP 18; TEMP 36.7; O2SAT 96
[2024-10-13] MEDS: Lactated Ringers 1,000 ML 100 ML IVCONT (10:59)
[2024-10-13 11:18] VITALS: BP 158/88
--- NOTE | 2024-10-13 12:25 | P.HPSUR_ITS ---
Pre-Procedural Eval Section A - 24 Hr Update-Section A only Date of Service: 10/13/24 Section B - Complete if H&P > 30 days Chief Complaint: screening Details of Present Illness: Hemorrhoids Varicose veins of both legs with edema Asthma Surgical History History of colonoscopy (~2012) No pertinent past surgical history Allergies: Allergies Allergy/AdvReac Type Severity Reaction Status Date / Time procaine [From Novocain] Allergy Mild Redness of Verified 10/13/24 10:43 Skin Review of Systems Review of Systems Comment: Ten point ROS negative Exam Exam Comment: Gen appear: No acute distress HEENT: no icterus Chest: No overt resp distress Abd: soft, nontender, nondistended Psych: Stable affect, answering questions appropriately Neuro: A/Ox3 noted to move all extremities spontaneously Ext: no peripheral edema Plan Diagnosis/Plan: Unchanged I have reviewed the history and physical and performed a pertinent physical examination on my patient. No changes have occurred unless specified. Time Spent With Patient Time: Total time managing care of this patient today ____ minutes.
--- NOTE | 2024-10-13 13:02 | P.OPN-COLO_ITS ---
Colonoscopy Operative Note Operative Note Date of Service: 10/13/24 Narrative: Procedure: Colonoscopy Indication: Screening Endoscopist: Wendi Rene MD Anesthesia Provider: Ritu Vasquez CRNA Anesthesia type: MAC Instrument: Olympus [id number]-[id number] Consent: Indication, risks vs benefits, and alternatives were discussed with the patient who gave written informed consent to proceed. An manager of software development was utilized to assist with the consent. EKG, pulse, pulse oximetry and blood pressure were monitored throughout the procedure. Please see anesthesia flowsheet. Procedure: The patient was brought to the procedure room and placed in the left lateral decubitus position. IV medications were administered by the anesthesia provider in attendance. A digital rectal exam was performed which was abnormal for external hemorrhoids. A distal attachment cap was affixed to the tip of the colonoscope which was then inserted through the anus and advanced through the colon to the cecum at 75 cm,and terminal ileum. Appendiceal orifice and ileocecal valve were identified. Mucosa was carefully examined under high definition white light as the instrument was slowly withdrawn in a retrograde panoramic fashion. Retroflexion was performed in rectum. The procedure was not difficult. There were no immediate obvious complications. The quality of the prep was BBPS: 2+3+3 = adequate Withdrawal time 9 minutes. Limitations: No limitations. Findings: Mucosa: Normal to cecum and terminal ileum. Protruding lesions: * Large internal hemorrhoids [without] stigmata of recent bleeding. Impression: 1. Normal colon and terminal ileum mucosa 2. External and internal hemorrhoids Recommendations: - repeat colonoscopy for asymptomatic colorectal cancer screening in 10 years
[2024-10-13 13:09] VITALS: BP 104/58; PULSE 91; RESP 16; TEMP 36.1; O2SAT 99
[2024-10-13 13:24] VITALS: BP 131/73; PULSE 64; RESP 16; O2SAT 95
[2024-10-13 13:39] VITALS: BP 131/70; PULSE 65; RESP 16; TEMP 36.1; O2SAT 95
== END 2024-10-13 14:28 | disposition home or self-care (01) ==
PROVIDERS: PCP Family Medicine; Visit Provider Internal Medicine
PROC: 0DJD8ZZ Inspection of Lower Intestinal Tract, Via Natural or Artificial Opening Endoscopic (ICD-10-PCS; CPT 45378; principal; 2024-10-13 12:00)
DX: Z12.11 Encounter for screening for malignant neoplasm of colon (principal); K64.8 Other hemorrhoids; K64.4 Residual hemorrhoidal skin tags; I10 Essential (primary) hypertension; E78.00 Pure hypercholesterolemia, unspecified; J45.909 Unspecified asthma, uncomplicated; Z79.899 Other long term (current) drug therapy
CPT/HCPCS: 45378; J2003; J2704

== ENCOUNTER → 2024-10-13 10:39 | Outpatient (BNV) | payer OTHER, SELFPAY | PROVIDERS: PCP Family Medicine; Visit Provider Internal Medicine | DX: Z12.11 Encounter for screening for malignant neoplasm of colon (principal); K64.8 Other hemorrhoids | CPT/HCPCS: 45378 ==

== ENCOUNTER 2024-10-14 12:57 | Outpatient (REF) | payer OTHER, SELFPAY | END 2024-10-14 12:58 | disposition home or self-care (01) | LOC: HO.US 12:57 | PROVIDERS: PCP Family Medicine; Visit Provider Physician Assistant Surgical | DX: I83.11 Varicose veins of right lower extremity with inflammation (principal); I83.12 Varicose veins of left lower extremity with inflammation | CPT/HCPCS: 93970 ==

== ENCOUNTER 2024-10-18 14:42 | Outpatient (REF) | payer OTHER, SELFPAY ==
[2024-10-19 03:42] LABS: CT PCR NOT DETECTED (Not Detect.); NG PCR NOT DETECTED (Not Detect.)
[2024-10-19 11:45] LABS: Bacterial Vaginosis PCR NEGATIVE (Negative); Candida Group PCR NOT DETECTED (Not Detect); Candida glab krusei PCR NOT DETECTED (Not Detect); Trichomonas vaginalis PCR NOT DETECTED (Not Detect)
== END 2024-10-18 14:43 | disposition home or self-care (01) ==
LOC: HO.LAB 14:42
PROVIDERS: PCP Family Medicine; Visit Provider Advanced Practice Midwife
DX: Z01.419 Encounter for gynecological examination (general) (routine) without abnormal findings (principal); D21.9 Benign neoplasm of connective and other soft tissue, unspecified; N89.8 Other specified noninflammatory disorders of vagina
CPT/HCPCS: 0352U; 87491; 87591; 99386; 99459

== ENCOUNTER 2024-10-18 15:21 | Outpatient (REF) | payer OTHER, SELFPAY ==
[2024-10-19 11:28] LABS: HPV 16,18/45 See PAP report
== END 2024-10-18 15:22 | disposition home or self-care (01) ==
LOC: HO.LNP 15:21
PROVIDERS: Visit Provider Advanced Practice Midwife
DX: Z01.419 Encounter for gynecological examination (general) (routine) without abnormal findings (principal)
CPT/HCPCS: 87624; 88175

== ENCOUNTER 2024-10-20 14:26 | Outpatient (REF) | payer OTHER, SELFPAY ==
[2024-10-20 18:32] LABS: Alanine Aminotransferase 38 U/L (0-31); Albumin Level 4.3 g/dL (3.5-5.0); Alkaline Phosphatase 53 U/L (39-117); Anion Gap 8 (12-20); Aspartate Amino Transferase 26 U/L (5-31); Bilirubin Total 0.5 mg/dL (0.0-1.0); Blood Urea Nitrogen 9 mg/dL (9-16); Calcium 9.3 mg/dL (8.4-10.2); Carbon Dioxide 31 mmol/L (22-29); Chloride 107 mmol/L (96-108); Cholesterol 174 mg/dL (<200); Estimated Glomerular Filt Rate > 60; Glucose Fasting 108 mg/dL (60-99); HDL Cholesterol 44 mg/dL (>40); LDL Cholesterol Calculated 106 mg/dL (<100); Potassium 4.2 mmol/L (3.3-5.1); Sodium 142 mmol/L (135-145); Total Protein 6.9 g/dL (6.5-8.0); Triglycerides 123 mg/dL (<150)
[2024-10-20 18:34] LABS: Estimated Average Glucose 131 mg/dL; Hemoglobin A1C 153.3974 umol/L; Hemoglobin A1c % 6.2 % (<6.0); Total Hemoglobin (HGBA1C) 3431.4194 umol/L
== END 2024-10-20 14:27 | disposition home or self-care (01) ==
LOC: HO.WFDLDS 14:26
PROVIDERS: Visit Provider Family Medicine
DX: Z00.00 Encounter for general adult medical examination without abnormal findings (principal); R73.01 Impaired fasting glucose; R74.8 Abnormal levels of other serum enzymes; E78.00 Pure hypercholesterolemia, unspecified
CPT/HCPCS: 36415; 80053; 80061; 83036

== ENCOUNTER 2024-10-21 14:54 | Outpatient (REF) | payer OTHER, SELFPAY | END 2024-10-21 14:55 | disposition home or self-care (01) | LOC: HO.US 14:54 | PROVIDERS: PCP Family Medicine; Visit Provider Advanced Practice Midwife | DX: D21.9 Benign neoplasm of connective and other soft tissue, unspecified (principal) | CPT/HCPCS: 76830; 76856 ==

== ENCOUNTER 2024-10-24 14:32 | Outpatient (AMB) | payer OTHER, SELFPAY ==
--- NOTE | 2024-10-24 14:44 | A.OFFPC_ITS ---
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 Dx: I10. Daily As directed, 999 days/lifetime budesonide-formoterol 160-4.5 mcg/actuation (Symbicort) 2 puffs inhalation BID hydrocortisone 2.5% (Anusol-HC) 1 appl IN BEDTIME 14 days hydrocortisone 2.5% (Anusol-HC) 1 appl IN BID-QID PRN ipratropium-albuterol 0.5 mg-3 mg(2.5 mg base)/3 mL mL inhalation BID losartan-hydrochlorothiazide 100-25 mg 1 tab PO DAILY montelukast 10 mg PO BEDTIME naproxen 500 mg PO BID PRN 90 days olopatadine 0.7% 1 drp ophthalmic (eye) DAILY PRN 30 days tiotropium bromide (Spiriva with HandiHaler) 1 cap inhalation DAILY PRN tiotropium bromide (Spiriva with HandiHaler) 1 cap inhalation DAILY Tobacco use date assessed: 07/04/24 Dental Screening Dental Screen Date: 07/04/24 HPI f/u labs HPI Details 59 y/o female presents to f/u labs, hype rtension, elevated fasting blood sugars. Blood pressure today 140/78, 73p. She is on losartan-HCTZ 100-25mg daily, amlodipine 10mg daily. Has complaints of fatigue. Does note she has sleep apnea. Labs drawn 10/20/24. Reviewed labs with pt. A1c 6.2%. Fasting glucose of 108. Elevated ALT of 38. Triglycerides 123. TC 174. LDL 106. HDL 44. PFSH Medical History (Updated 10/24/24 @ 16:23 by Shabbir Mulligan) Fibroid Hemorrhoids Varicose veins of both legs with edema Asthma Surgical History History of colonoscopy (~2012) No pertinent past surgical history Family History Mother High blood pressure Glaucoma Father Radiation adverse effect Social History (Updated 10/18/24 @ 14:55 by YULIET Farley) Household Members: Children Housing: House Are you a primary care support representative to a significant other at home: No Do you presently have visiting nurse or other home services: No Alcohol intake: current Alcohol intake frequency: holidays/special occasions only Patient Tobacco Use Status: Never used Tobacco e-Cigarette/Vaping Use: Never Used service: No Current occupational status: other Cognitive needs: No Hearing needs: No Vision needs: No Questionnaire Thrive Questionnaire Date Thrive assessed: 02/29/24 JOSE-7 AMB Questionnaire JOSE-7 Date JOSE - 7 assessed: 07/04/24 Source: Developed by Drs. Gerardo Spaulding, Paulette Pennington, Mike Dennis and colleagues, with an educational [place] from [email or web address]. Review of Systems Const Reports fatigue, Denies headache(s) and Denies weakness ENT Denies dizziness and Denies headache(s) Card Denies chest pain, Denies lightheadedness, Denies dyspnea and Denies other (Palpitations) Resp Denies cough, Denies dyspnea, Denies wheezing and Denies other ( shortness of breath) Musc Denies numbness and Denies tingling Neuro Denies dizziness, Denies headache(s), Denies numbness, Denies tingling, Denies paresthesias and Denies weakness Psych Denies anxiety and Denies depression Endo Reports fatigue Aller/Immun Denies wheezing Physical exam (Primary Care) Vital Signs: Last Vital Signs Temp 98.3 F 10/24/24 14:46 Pulse 73 10/24/24 14:46 Resp 16 10/24/24 14:46 BP 140/78 H 10/24/24 14:46 Pulse Ox 98 10/24/24 14:46 Oxygen Delivery Method Room Air 10/24/24 14:46 BMI result Body Mass Index 42.4 Tobacco/Smoking Status: Tobacco use Status Tobacco use date assessed 07/04/24 10/24/24 14:44 Patient Tobacco Use Status Never used Tobacco 10/24/24 14:44 e-Cigarette/Vaping Use Never Used 10/24/24 14:44 Thrive Assessment: Date of Thrive Assessment Date Thrive assessed 02/29/24 10/24/24 14:44 Const General: no acute distress and well developed Nutritional Appearance: well nourished Orientation/consciousness: patient oriented x3 HENMT Head: Yes normocephalic and Yes atraumatic Eyes General: appearance normal, both eyes and all related structures Pupils: Equal, round and reactive pupils present EOM: EOMs intact bilaterally Resp Effort & Inspection: normal respiratory effort Auscultation: clear to auscultation bilaterally Cardio Rate: regular rate Rhythm: regular rhythm Heart sounds: S1 normal heart sound present, S2 normal heart sound present, no gallops, no murmurs and no rubs Neuro General: patient oriented x3 and gait normal Cranial nerves: Yes Equal, round and reactive pupils present Psych Affect: normal affect Coding Level of Care Code Est Pt Level 4 (08291) Diagnoses Hypertension I10 Asthma J45.909 Elevated liver enzymes R74.8 Swelling of lower extremity M79.89 Difficulty sleeping G47.9 Assessment & Plan Assessment & Plan (1) Hypertension: Code(s): I10 - Essential (primary) hypertension Category: Medical Plan: Blood?pressure?is?mildly?elevated Continue?current?medication?regimen Encouraged?weight?loss?and?diet Encouraged?decrease?salt/sodium Will?adjust?medications?if?still?elevated?at?next?visit (2) Asthma: Code(s): J45.909 - Unspecified asthma, uncomplicated Category: Medical Plan: Lungs?are?clear Continue?current?medication?regimen Follow-up?with?pulmonology?as?recommended (3) Elevated liver enzymes: Code(s): R74.8 - Abnormal levels of other serum enzymes Category: Medical Plan: Advised?weight?loss Will?recheck?liver?enzymes?at?visit (4) Swelling of lower extremity: Code(s): M79.89 - Other specified soft tissue disorders Category: Medical Plan: Lower?extremity?edema Patient?says?she?is?already?franca vating?her?legs?and?avoiding?salt/sodium?though?I?encouraged?her?to?continue?thi s Will?trial?furosemide?10?mg?every?other?day (5) Difficulty sleeping: Code(s): G47.9 - Sleep disorder, unspecified Category: Medical Plan: Patient?has?known?history?he?diarrhea?but?is?having?difficulty?getting?to?sleep Continue?using?CPAP Discuss?with?pulmonology?regarding?calibration?CPAP?she?refer?to?Sleep?Medicine Trial?trazodone Orders: Orders Comprehensive [place]. Panel Fast Today Z00.00 - Encounter for general adult medical examination without abnormal findings Hemoglobin A1c Today R73.01 - Impaired fasting glucose Lipid Panel Today Z00.00 - Encounter for general adult medical examination wit hout abnormal findings Referrals Sleep Medicine Referral G47.30 - Sleep apnea, unspecified Medications: New blood-glucose meter (FreeStyle Lite Meter kit) DX: PreDM, test blood sugar once a day, duration 999 days 1 ea 0RF R73.03 - Prediabetes blood sugar diagnostic (FreeStyle Lite Strips) DX: PreDM, test blood sugar once a day, 90 days 100 ea 4RF R73.03 - Prediabetes lancets (FreeStyle Lancets) DX: PreDM, test blood sugar once a day, 90 days 100 ea 4RF DX: E11.9, test blood sugar 4 times a day, 90 day R73.03 - Prediabetes trazodone 25 mg (1/2 x 50 mg) PO BEDTIME 30 days 15 tabs 1RF fluticasone propionate 50 mcg/actuation (Flonase Allergy Relief) administer into each nostril 1 spray intranasal Q12H 30 days 16 grams 2RF furosemide 20 mg PO Q OTHER DAY 30 days 15 tabs 0RF Changed From amlodipine 10 mg PO DAILY To amlodipine 10 mg PO DAILY 90 days 90 tabs 2RF From losartan-hydrochlorothiazide 100-25 mg 1 tab PO DAILY To losartan-hydrochlorothiazide 100-25 mg 1 tab PO DAILY 90 days 90 tabs 2RF
[2024-10-24 14:46] VITALS: BP 140/78; PULSE 73; RESP 16; TEMP 36.8; O2SAT 98; BMI 42.4
== END 2024-10-24 16:20 | disposition home or self-care (01) ==
PROVIDERS: PCP Family Medicine; Visit Provider Family Medicine
DX: I10 Essential (primary) hypertension (principal); J45.909 Unspecified asthma, uncomplicated; R74.8 Abnormal levels of other serum enzymes; M79.89 Other specified soft tissue disorders; G47.9 Sleep disorder, unspecified

== ENCOUNTER → 2024-10-24 14:32 | Outpatient (BNVA) | payer OTHER, SELFPAY | PROVIDERS: PCP Family Medicine; Visit Provider Family Medicine | DX: I10 Essential (primary) hypertension (principal); R74.8 Abnormal levels of other serum enzymes; M79.89 Other specified soft tissue disorders; R73.01 Impaired fasting glucose; G47.30 Sleep apnea, unspecified; R73.03 Prediabetes; E11.9 Type 2 diabetes mellitus without complications; J45.909 Unspecified asthma, uncomplicated; Z99.89 Dependence on other enabling machines and devices; Z79.899 Other long term (current) drug therapy | CPT/HCPCS: 99212 ==

== ENCOUNTER 2024-10-26 13:43 | Outpatient (AMB) | payer OTHER, SELFPAY ==
--- NOTE | 2024-10-26 13:51 | A.OFFVIS_ITS ---
Vital Signs 10/26/24 13:56 Height 5 ft 3 in Weight 239 lb 13.807 oz BMI 42.5 BP 144/74 H Blood Pressure Location Lt brachial Position Sitting Pulse 98 Pulse Source Pulse Oximeter Pulse Oximetry (%) 93 Oxygen Delivery Method Room Air Intake Visit Reasons: S/P [place]; Dr. Rene Intake Note: ESTABLISHED PATIENT Thu presents in office today for a scheduled s/p FUV. Meds and Allergies reviewed? Y No recent or relevant surgeries? [place] w/ BZ. Any significant concerns or new changes? No significant concerns or sx. Pharmacy verified? [facility]. Pt needs refill of bisacodyl Allergies procaine [From Novocain] Allergy (Mild, Verified 10/26/24 13:52) Redness of Skin HPI HPI S/P [place]; Dr. Rene: Details: LAST VISIT: Screening for colon cancer Postprandial abdominal bloating Abdominal pain, LUQ (left upper quadrant) Plan Patient will continue taking Dulcolax. Patient also can take fiber. Patient will stop fiber 1 week before going for colonoscopy. What to expect before during and after procedure discussed with patient. Stressed the importance of good bowel prep and clear liquid diet day before procedure. I will see patient after the procedure, sooner on as needed basis. She is agreeable to this plan and verbalizes understanding of instructions. She was given the opportunity to ask questions and all questions answered. ? Thank you for allowing me to participate in her care Medications New polyethylene glycol 3350 (Miralax) As directed by gastroenterology department at [facility] 238 grams PO ONCE 238 grams 0RF Z12.11 methylcellulose (laxative) (Citrucel) take it with full glass of water 500 mg PO DAILY 90 tabs 2RF K59.00 Refilled bisacodyl (Dulcolax (bisacodyl)) 10 mg (2 x 5 mg) PO BEDTIME 180 tabs 4RF COLONOSCOPY: Findings: Mucosa: Normal to cecum and terminal ileum. Protruding lesions: * Large internal hemorrhoids [without] stigmata of recent bleeding. Impression: 1. Normal colon and terminal ileum mucosa 2. External and internal hemorrhoids Recommendations: - repeat colonoscopy for asymptomatic colorectal cancer screening in 10 years TODAY'S VISIT: Patient is here today for follow-up and to discuss colonoscopy results. Patient denies any ill effects from the prep, anesthesia or procedure itself. Patient reports that she is moving her bowels better now that she is taking Dulcolax. Continues to have occasional blood after having a bowel movement when straining. External and internal hemorrhoids found. No polyps, colonoscopy will be repeated in 10 years unless clinically necessary. Patient does not have any family history of CRC. Patient reports that she is interested in losing weight and will speak to her PCP to see if he will order GLP 1. Patient reports that she tries to eat healthier and is unable to lose weight. Patient denies any other GI concerning symptoms. [facility] Medical History Fibroid Hemorrhoids Varicose veins of both legs with edema Asthma Surgical History History of colonoscopy (~2012) No pertinent past surgical history Family History Mother High blood pressure Glaucoma Father Radiation adverse effect Social History Household Members: Children Housing: House Are you a primary healthcare applications analyst to a significant other at home: No Do you presently have visiting nurse or other home services: No Alcohol intake: current Alcohol intake frequency: holidays/special occasions only Patient Tobacco Use Status: Never used Tobacco e-Cigarette/Vaping Use: Never Used service: No Current occupational status: other Cognitive needs: No Hearing needs: No Vision needs: No Review of Systems Const Denies weight gain and Denies weight loss ENT Reports no additional complaints, Denies dysphagia and Denies odynophagia Card Reports no additional complaints Resp Reports no additional complaints GI Denies abdominal pain, Denies belching, Denies melena, Denies bloating, Denies change in bowel habits, Denies dysphagia, Denies excessive flatus, Denies dyspepsia, Denies heartburn, Denies diarrhea, Denies loose stools, Denies n ausea, Denies odynophagia and Denies vomiting Musc Reports no additional complaints Neuro Reports no additional complaints Psych Reports no additional complaints Endo Reports no additional complaints Physical Exam Vital Signs: Last Vital Signs Pulse 98 10/26/24 13:56 BP 144/74 H 10/26/24 13:56 Pulse Ox 93 10/26/24 13:56 Oxygen Delivery Method Room Air 10/26/24 13:56 BMI result Body Mass Index 42.5 Const General: healthy appearing and no acute distress Nutritional Appearance: obese Orientation/consciousness: patient oriented x3 Resp Effort & Inspection: normal respiratory effort, able to speak in complete sentences, no tracheal deviation and symmetric chest movement Auscultation: clear to auscultation bilaterally Cardio Rate: regular rate GI Inspection: Yes normal to inspection, No distended and Yes obesity Palpation (GI): Soft to palpation, not firm, nontender and No hepatosplenomegaly present Auscultation: normal bowel sounds General: Yes no CVA tenderness Back/Spine/Pelvis Back: no CVA tenderness Skin General skin exam: elasticity normal, turgor normal and dry skin Neuro General: patient oriented x3 Psych Appearance: grossly normal Mental Status: mental status grossly normal Assessment & Plan Assessment & Plan (1) Postprandial abdominal bloating: Code(s): R14.0 - Abdominal distension (gaseous) (2) Abdominal pain, LUQ (left upper quadrant): Code(s): R10.12 - Left upper quadrant pain (3) Status post colonoscopy: Code(s): Z98.890 - Other specified postprocedural states (4) Hemorrhoids without complication: Code(s): K64.9 - Unspecified hemorrhoids Plan Continue Dulcolax. Increase fluid intake and activity to promote better bowel motility. Patient will be given script for Proctosol for her hemorrhoids. Patient can also do Sitz baths with Epsom salts. Patient is interested in losing weight and has tried different diets and is very unsuccessful. Patient will speak to her PCP, however I recommended her trying berberine for breakfast and lunch to see if she will have results with that. That could suppress her craving for carbs. However this is just a supplement and if patient will have diarrhea, constipation, abdominal pain she is to stop the medication. She will follow-up in our office in 3 months to re-evaluate. Patient will also consider possibly going for bariatric surgery if necessary. Patient is agreeable to current plan of care and verbalizes understanding of instructions. She was given the opportunity to ask questions and all questions answered. Thank you for allowing me to participate in her care Medications: New hydrocortisone 2.5% (Proctosol HC) 1 appl [place] BID-QID PRN 30 grams 2RF hemorrhoids K64.9 - Unspecified hemorrhoids bisacodyl (Dulcolax (bisacodyl)) 10 mg (2 x 5 mg) PO BEDTIME 180 tabs 4RF Discontinued hydrocortisone 2.5% (Anusol-HC) Apply every night Discontinued Reason: Doctor's Order 1 appl [place] BEDTIME 14 days 30 grams 0RF Coding Level of Care Code Est Pt Level 3 (46024) Diagnoses Postprandial abdominal bloating R14.0 Abdominal pain, LUQ (left upper quadrant) R10.12 Status post colonoscopy Z98.890 Hemorrhoids without complication K64.9 Time Spent (min) 30 Comment 20 minutes spent with patient and additional 10 minutes spent reviewing her records
[2024-10-26 13:56] VITALS: BP 144/74; PULSE 98; O2SAT 93; BMI 42.5
== END 2024-10-26 14:28 | disposition home or self-care (01) ==
PROVIDERS: PCP Family Medicine; Visit Provider Nurse Practitioner Family
DX: R14.0 Abdominal distension (gaseous) (principal); R10.12 Left upper quadrant pain; Z98.890 Other specified postprocedural states; K64.9 Unspecified hemorrhoids
CPT/HCPCS: 99213

== ENCOUNTER → 2024-10-26 13:43 | Outpatient (BNVA) | payer OTHER, SELFPAY | PROVIDERS: PCP Family Medicine; Visit Provider Nurse Practitioner Family | DX: R14.0 Abdominal distension (gaseous) (principal); R10.12 Left upper quadrant pain; K64.9 Unspecified hemorrhoids; Z98.890 Other specified postprocedural states | CPT/HCPCS: 99212 ==

== ENCOUNTER 2024-12-08 13:54 | Outpatient (AMB) | payer OTHER, SELFPAY ==
[2024-12-08 14:00] VITALS: BMI 42.3
--- NOTE | 2024-12-08 14:00 | A.OFFVIS_ITS ---
Vital Signs 12/08/24 14:00 Height 5 ft 3 in Weight 239 lb BMI 42.3 Intake Visit Reasons: Follow up US Intake Note: follow up US 10/14/24 for VV w/ swelling & pain, Left LE is now worse than the right LE. Field Artillery Crewmember Required: Yes Field Artillery Crewmember Language: Andorran Field Artillery Crewmember Services: Field Artillery Crewmember Present Information Interpreted: non-clinical & clinical Accompanied by: Self / Same As Patient Allergies procaine [From Novocain] Allergy (Mild, Verified 12/08/24 14:07) Redness of Skin HPI HPI Follow up US: Details: Very pleasant 59-year-old Andor[place] female presents for follow-up regarding venous insufficiency. She complains of swelling and discomfort right more so than left. She does have some left knee discomfort she reports may be secondary to some exercise. She continues to have swelling and discomfort. She has had minimal relief with compression stockings. She now presents for follow-up with venous insufficiency testing. Of note online acid blower was used [facility] Medical History Fibroid Hemorrhoids Varicose veins of both legs with edema Asthma Surgical History History of colonoscopy (~2012) No pertinent past surgical history Family History Mother High blood pressure Glaucoma Father Radiation adverse effect Social History Household Members: Children Housing: House Are you a primary hospice care sales consultant to a significant other at home: No Do you presently have visiting nurse or other home services: No Alcohol intake: current Alcohol intake frequency: holidays/special occasions only Patient Tobacco Use Status: Never used Tobacco e-Cigarette/Vaping Use: Never Used service: No Current occupational status: other Cognitive needs: No Hearing needs: No Vision needs: No Review of Systems Const Reports as per HPI ENT Reports no additional complaints Card Denies chest pain, Denies chest pain at rest and Denies chest pain with activity Resp Denies chest congestion and Denies cough GI Reports no additional complaints Musc Details: pain over varicosities, aching of lower extremities, swelling, cramping, heaviness and tiredness, itching Denies abnormal gait Skin/Breast Reports pruritus and Denies wounds Neuro Reports no additional complaints and Denies abnormal gait Psych Denies no additional complaints Physical Exam Vital Signs: BMI result Body Mass Index 42.3 Const General: cooperative, healthy appearing and comfortable Orientation/consciousness: oriented to person, oriented to place and oriented to time Neck Carotids: no bruits Chest Chest palpation & inspection: normal inspection of the chest and normal palpation of entire chest wall Resp Effort & Inspection: normal respiratory effort and able to speak in complete sentences Cardio Rate: regular rate Heart sounds: S1 normal heart sound present and S2 normal heart sound present Peripheral pulses: Peripheral pulses 2+ throughout GI Inspection: Yes normal to inspection Skin Other: +2 edema, large rope-like varicosities greater than 4 mm CEAP Classification C4 - skin color changes Ep - Etiology Primary As - superficial veins P - reflux General skin exam: dry skin Neuro General: oriented to person, oriented to place and oriented to time Extrem Right lower extremity: full ROM, normal capillary refill and edema Left lower extremity: full ROM, normal capillary refill and edema Psych Mental Status: mental status grossly normal Results Reviewed Results Reviewed: Brief summary of venous insufficiency testing is as follows: right great saphenous vein: Positive right small saphenous vein: negative right accessory vein: none present left great saphenous vein: negative left small saphenous vein: negative left accessory vein: none present Please note there is no evidence of any venous aneurysms or significant tortuosity Assessment & Plan Assessment & Plan (1) Varicose veins of right lower extremity with inflammation: Code(s): I83.11 - Varicose veins of right lower extremity with inflammation Category: Medical Plan: This patient has varicose veins with inflammation. They continue to be a s ource of discomfort for the patient. The patient has tried conservative treatment with compression, leg elevation and exercise program for over 3 months time. They have been compliant with all treatment. This has provided minimal relief for the patient. I do not anticipate this course of treatment will alter the underlying etiology. The patient has been scheduled for lower extremity venous treatment inclusive of --- right great saphenous vein venous. Risks, benefits, and complications of this procedure has been discussed in detail with the patient including but not limited to bleeding, infection, and the development of a DVT. The patient has demonstrated a clear understanding and has consented. We will schedule the patient as soon as possible. Thank you for allowing us to participate in this patient's care. If there are any questions or concerns please do not hesitate to contact us. Coding Level of Care Code Est Pt Level 4 (89154) Diagnoses Varicose veins of right lower extremity with inflammation I83.11
== END 2024-12-08 14:31 | disposition home or self-care (01) ==
PROVIDERS: PCP Family Medicine; Visit Provider Surgery Vascular Surgery
DX: I83.11 Varicose veins of right lower extremity with inflammation (principal)
CPT/HCPCS: 99214

== ENCOUNTER → 2024-12-08 13:54 | Outpatient (BNVA) | payer OTHER, SELFPAY | PROVIDERS: PCP Family Medicine; Visit Provider Surgery Vascular Surgery | DX: I83.11 Varicose veins of right lower extremity with inflammation (principal) | CPT/HCPCS: 99212 ==

== ENCOUNTER 2024-12-30 10:54 | Outpatient (AMB) | payer OTHER, SELFPAY ==
[2024-12-30 10:57] VITALS: BP 132/80; PULSE 87; O2SAT 94; BMI 43.0
--- NOTE | 2024-12-30 10:57 | A.OFFVIS_ITS ---
Vital Signs 12/30/24 10:57 Height 5 ft 3 in Weight 243 lb BMI 43.0 BP 132/80 Blood Pressure Location Lt brachial Position Sitting Pulse 87 Pulse Source Pulse Oximeter Pulse Oximetry (%) 94 Oxygen Delivery Method Room Air Intake Visit Reasons: 10/27 LVM+Let INP-YAA Automobile Upholstery Trim Installer Required: Yes Automobile Upholstery Trim Installer Name: Hafsa [id number] Accompanied by: Self / Same As Patient Allergies procaine [From Novocain] Allergy (Mild, Verified 12/30/24 11:01) Redness of Skin HPI Comments Details: 59 year old female referred to us by her Brendan Chew PCP for sleep evaluation. She goes to sleep at 9pm and wakes up at 6am with 2 bathroom breaks. She has cold air blowing on her face at night, when using her machine. She snores at night and gasps for air as witnessed by her partner. She was issued a CPAP machine by her butt sawyer Juan Dye in August 2023, when diagnosed with Asthma and would like it to be fixed so she can use it. She has well controlled BP and takes all her asthma medications as prescribed. She has anxiety and takes Trazadone at night to help her relax and fall asleep. She does not smoke but drinks alcohol socially. [facility] Medical History Fibroid Hemorrhoids Varicose veins of both legs with edema Asthma Surgical History History of colonoscopy (~2012) No pertinent past surgical history Family History Mother High blood pressure Glaucoma Father Radiation adverse effect Social History Household Members: Children Housing: House Are you a primary child care assistant to a significant other at home: No Do you presently have visiting nurse or other home services: No Alcohol intake: current Alcohol intake frequency: holidays/special occasions only Patient Tobacco Use Status: Never used Tobacco e-Cigarette/Vaping Use: Never Used service: No Current occupational status: other Cognitive needs: No Hearing needs: No Vision needs: No Review of Systems Const All systems reviewed & are unremarkable except as noted in HPI and below Physical Exam Vital Signs: Last Vital Signs Pulse 87 12/30/24 10:57 BP 132/80 12/30/24 10:57 Pulse Ox 94 12/30/24 10:57 Oxygen Delivery Method Room Air 12/30/24 10:57 BMI result Body Mass Index 43.0 Const General: cooperative and comfortable Nutritional Appearance: obese (BMI 43) Orientation/consciousness: patient oriented x3 HEENT Face and sinus: Yes normal facial exam and Yes face symmetric Teeth and gingiva: other ([place] score of 1) Eyes Pupils: Equal, round and reactive pupils present Neck Neck: Yes full ROM Resp Effort & Inspection: normal respiratory effort and able to speak in complete sentences Neuro General: patient oriented x3 and moves all extremities Cranial nerves: Yes CN's II-XII intact bilaterally, Yes Facial sensation intact/muscles of mastication intact, Yes Equal, round and reactive pupils present, Yes Normal accommodation reflex present, Yes Bilaterally intact EOM present, Yes Nystagmus not present, Yes Normal facial strength present, Yes Midline tongue present, Yes Ability to bilaterally rotate head present and Yes Ability to bilaterally elevate shoulders present Motor exam (neuro): 5/5 motor strength present throughout and Normal motor muscle tone present throughout Deep tendon reflexes (DTR's): Right triceps reflex intensity grade: 2+, Left triceps reflex intensity grade: 2+, Rt Biceps (C5, C6): 2+, Left biceps reflex intensity grade: 2+, Right brachioradialis reflex intensity grade: 2+, Left brachioradialis reflex intensity grade: 2+, Right patellar reflex intensity grade: 2+ and Left patellar reflex intensity grade: 2+ Psych Attitude: cooperative Thought process: Normal thought process present Thought content: Normal thought content present Results Reviewed Results Reviewed: Pulmonology Report Assessment & Plan Assessment & Plan (1) Loud snoring: Code(s): R06.83 - Snoring Category: Medical (2) Fatigue: Code(s): R53.83 - Other fatigue Category: Medical Qualifiers: Fatigue type: chronic, unspecified Qualified Code(s): R53.82 - Chronic fatigue, unspecified (3) Dyspnea: Code(s): R06.00 - Dyspnea, unspecified Category: Medical Qualifiers: Dyspnea type: shortness of breath Qualified Code(s): R06.02 - Shortness of breath (4) Asthma: Code(s): J45.909 - Unspecified asthma, uncomplicated Category: Medical Qualifiers: Asthma severity: moderate Asthma persistence: persistent Asthma complication type: with acute exacerbation Qualified Code(s): J45.41 - Moderate persistent asthma with (acute) exacerbation (5) Sleep apnea: Code(s): G47.30 - Sleep apnea, unspecified Category: Medical Qualifiers: Sleep apnea type: central sleep apnea associated with underlying condition Qualified Code(s): G47.37 - Central sleep apnea in conditions classified elsewhere Plan Snoring loudly PSG Polysomnography with in lab sleep study. Fatigue Labs to r/o deficiencies Orders: Orders RT PSG in-lab sleep study Today G47.30 - Sleep apnea, unspecified Vitamin B12 and Folate Today R53.82 - Chronic fatigue, unspecified TSH reflex Free T4 Today R53.82 - Chronic fatigue, unspecified IRON PROFILE Today G47.9 - Sleep disorder, unspecified, R53.83 - Other fatigue Hemoglobin A1c Today R53.82 - Chronic fatigue, unspecified Ferritin Today R53.82 - Chronic fatigue, unspecified Complete Blood Count no Diff Today R53.82 - Chronic fatigue, unspecified Comprehensive Met. Panel Today R53.82 - Chronic fatigue, unspecified Vitamin D 25-OH Total Today R53.82 - Chronic fatigue, unspecified Methylmalonic Acid Today G47.9 - Sleep disorder, unspecified, R53.83 - Other fatigue Homocysteine Today R53.82 - Chronic fatigue, unspecified Patient Instructions: Will schedule for PSG- Polysomnography as paitient has Moderate Asthma Sleep Hygiene Provided Control Asthma Exacerbation Weight loss strategies with diet and lifestyle changes. Coding Level of Care Code New Pt Level 4 (57102) Diagnoses Loud snoring R06.83 Chronic fatigue R53.82 Fatigue type: chronic, unspecified Shortness of breath R06.02 Dyspnea type: shortness of breath Moderate persistent asthma with acute exacerbation J45.41 Asthma severity: moderate Asthma persistence: persistent Asthma complication type: with acute exacerbation Central sleep apnea due to medical condition G47.37 Sleep apnea type: central sleep apnea associated with underlying condition Time Spent (min) 20 Comment Establishing Baseline Sleep Questionnaire Difficulty falling asleep: Yes Difficulty staying asleep?: Yes Number of arousals: 2 Snoring: Yes Witnessed apneas: Yes Gasping arousals: Yes Nocturia: No GERD: No Vivid dreams: No Acting out dreams: No Abnormal behavior in sleep: No Abnormal movements in sleep: No Morning headaches: No Excessive daytime sleepiness: Yes Daytime naps: Yes Restless legs: No Hallucinations: No Sleep paralysis: No Drop attacks: No Sleep Study: Yes CPAP: Yes (Braille Proofreader issued)
== END 2024-12-30 11:27 | disposition home or self-care (01) ==
PROVIDERS: PCP Family Medicine; Visit Provider Physician Assistant Medical
DX: R06.83 Snoring (principal); R53.82 Chronic fatigue, unspecified; R06.02 Shortness of breath; J45.41 Moderate persistent asthma with (acute) exacerbation; G47.37 Central sleep apnea in conditions classified elsewhere
CPT/HCPCS: 99204

== ENCOUNTER → 2024-12-30 10:54 | Outpatient (BNVA) | payer OTHER, SELFPAY | PROVIDERS: PCP Family Medicine; Visit Provider Physician Assistant Medical | DX: J45.41 Moderate persistent asthma with (acute) exacerbation (principal); R05.9 Cough, unspecified; R06.02 Shortness of breath; Z91.09 Other allergy status, other than to drugs and biological substances; R06.83 Snoring; R53.82 Chronic fatigue, unspecified; G47.37 Central sleep apnea in conditions classified elsewhere | CPT/HCPCS: 99202; 99212 ==

== ENCOUNTER 2024-12-30 14:38 | Outpatient (AMB) | payer OTHER, SELFPAY ==
[2024-12-30 15:11] VITALS: PULSE 96; O2SAT 91; BMI 43.0
--- NOTE | 2024-12-30 15:11 | A.OFFVIS_ITS ---
Vital Signs 12/30/24 15:11 Height 5 ft 3 in Weight 243 lb BMI 43.0 Pulse 96 Pulse Source Pulse Oximeter Pulse Oximetry (%) 91 L Oxygen Delivery Method Room Air Intake Visit Reasons: Asthma/PFT Follow Up Fire Crew Worker Required: Yes Fire Crew Worker Name: Carolina [id number] Hockey Player: Hockey Player offered & declined Accompanied by: Self / Same As Patient Allergies procaine [From Novocain] Allergy (Mild, Verified 12/30/24 15:14) Redness of Skin Medication List - Last Reconciled 12/30/24 by Mera Mayorga LPN albuterol 90 mcg/actuation mcg inhalation amlodipine 10 mg PO DAILY 90 days bisacodyl (Dulcolax (bisacodyl)) 10 mg (2 x 5 mg) PO BEDTIME blood pressure monitor Automatic, Digital. Dx: I10. Daily As directed, 999 days/lifetime blood sugar diagnostic (FreeStyle Lite Strips) DX: PreDM, test blood sugar once a day, 90 days blood-glucose meter (FreeStyle Lite Meter kit) DX: PreDM, test blood sugar once a day, duration 999 days budesonide-formoterol 160-4.5 mcg/actuation (Symbicort) 2 puffs inhalation BID fluticasone propionate 50 mcg/actuation (Flonase Allergy Relief) 1 spray intranasal Q12H 30 days furosemide 20 mg PO Q OTHER DAY 30 days hydrocortisone 2.5% (Proctosol HC) 1 appl NM BID-QID PRN ipratropium-albuterol 0.5 mg-3 mg(2.5 mg base)/3 mL mL inhalation BID lancets (FreeStyle Lancets) DX: PreDM, test blood sugar once a day, 90 days losartan-hydrochlorothiazide 100-25 mg 1 tab PO DAILY 90 days montelukast 10 mg PO BEDTIME naproxen 500 mg PO BID PRN 90 days olopatadine 0.7% 1 drp ophthalmic (eye) DAILY PRN 30 days tiotropium bromide (Spiriva with HandiHaler) 1 cap inhalation DAILY trazodone 25 mg (1/2 x 50 mg) PO BEDTIME 30 days HPI HPI Asthma/PFT Follow Up: Details: Thu is a pleasant 59 year old female, never smoker, with underlying asthma, severe YAA and HTN. She has been moderately controlled on Symbicort, Spiriva, singulair, duoneb BID and albuterol MDI PRN. Since the last visit, she reports having the flu about three weeks ago and continues with productive cough with yellow sputum, chest congestion as well as increased dyspnea. She denies any evaluation at urgent care or hospitalization related to recent URI. She has been using her nebulizer once daily with good effect. She notes her symptoms have been worse, triggered by cold weather. [facility] Medical History Fibroid Hemorrhoids Varicose veins of both legs with edema Asthma Surgical History History of colonoscopy (~2012) No pertinent past surgical history Family History Mother High blood pressure Glaucoma Father Radiation adverse effect Social History Household Members: Children Housing: House Are you a primary school childcare attendant to a significant other at home: No Do you presently have visiting nurse or other home services: No Alcohol intake: current Alcohol intake frequency: holidays/special occasions only Patient Tobacco Use Status: Never used Tobacco e-Cigarette/Vaping Use: Never Used service: No Current occupational status: other Cognitive needs: No Hearing needs: No Vision needs: No Review of Systems Const Denies chills, Denies excessive sweating, Denies fever(s), Denies headache(s) and Denies night sweats Eyes Denies dry eyes, Denies irritation and Denies itchy eyes ENT Reports Normal hearing present, Denies headache(s), Denies nasal congestion, Denies nasal discharge, Denies post nasal drip and Denies sore throat Card Denies chest pain, Denies chest pain at rest, Denies chest pain with activity, Denies claudication, Denies leg edema, Denies orthopnea and Denies paroxysmal nocturnal dyspnea Resp Denies excessive phlegm production, Denies pain on inspiration, Denies pain with cough and Denies stridor Musc Denies myalgias Neuro Reports Normal hearing present and Denies headache(s) Endo Denies excessive sweating Jonh/Lymph Denies lymphadenopathy Aller/Immun Denies itchy eyes and Denies seasonal rhinorrhea Physical Exam Vital Signs: Last Vital Signs Pulse 96 12/30/24 15:11 Pulse Ox 91 L 12/30/24 15:11 Oxygen Delivery Method Room Air 12/30/24 15:11 BMI result Body Mass Index 43.0 Const General: cooperative, healthy appearing, comfortable, no acute distress, well developed and alert Nutritional Appearance: obese Orientation/consciousness: patient oriented x3 Limitations: no limitations HEENT Head: Yes normal to inspection, Yes normocephalic and Yes atraumatic Ears: hearing grossly normal bilaterally and external ears normal Eyes General: appearance normal, both eyes and all related structures Eyelids: Yes eyelids normal Sclerae: sclerae normal EOM: EOMs intact bilaterally Neck Neck: Yes normal visual inspection and Yes no lymphadenopathy Lymphatic: no lymphadenopathy noted Chest Chest palpation & inspection: normal inspection of the chest Resp Other: rechecked O2 on room air 95% Effort & Inspection: normal respiratory effort, able to speak in complete sentences, no audible wheezes, no cough, no stridor, not tachypneic, no tripod positioning and no use of accessory muscles Auscultation: diminished lung sounds Cardio Jugular venous distension: no JVD Rate: regular rate Rhythm: regular rhythm Skin Other: warm, dry General skin exam: no rashes or lesions noted Neuro General: patient oriented x3 Cranial nerves: Yes Normal hearing present Cognition (Neuro): normal cognition Gait exam (Neuro): Normal gait present Extrem General: Yes normal to inspection, Yes capillary refill normal, Yes no clubbing, cyanosis or edema and Yes no pedal edema Psych Appearance: grossly normal and well kempt Speech and movement: Normal speech and movement present and Clear speech present Affect: normal affect Attitude: cooperative Thought process: Normal thought process present Thought content: Normal thought content present Insight: Good insight present (Psych) Judgement: Good judgement present (Psych) Assessment & Plan Assessment & Plan (1) Asthma: Code(s): J45.909 - Unspecified asthma, uncomplicated Category: Medical Qualifiers: Asthma complication type: with acute exacerbation Asthma persistence: persistent Asthma severity: moderate Qualified Code(s): J45.41 - Moderate persistent asthma with (acute) exacerbation (2) Environmental allergies: Code(s): Z91.09 - Other allergy status, other than to drugs and biological substances Category: Medical (3) Cough: Code(s): R05.9 - Cough, unspecified Category: Medical (4) Dyspnea: Code(s): R06.00 - Dyspnea, unspecified Category: Medical Qualifiers: Dyspnea type: shortness of breath Qualified Code(s): R06.02 - Shortness of breath Plan Will treat bronchitic symptoms with doxycycline. She is aware to call if symptoms do not improve, will send for CXR. If worsen, will seek emergent care. Encouraged increased use of albuterol and mucinex. Will send refills on singulair, symbicort and spiriva. All questions were answered and patient is in agreement of plan. Will follow up in 3-6 months or sooner if needed. Medications: New doxycycline hyclate 100 mg PO BID 14 caps 0RF Refilled montelukast 10 mg PO BEDTIME 30 tabs 6RF tiotropium bromide (Spiriva with HandiHaler) puncture 1 cap using device; one dose = 2 inhalations 1 cap inhalation DAILY 60 inhalations 6RF budesonide-formoterol 160-4.5 mcg/actuation (Symbicort) 2 puffs inhalation BID 10.2 grams 6RF Coding Level of Care Code Est Pt Level 4 (30862) Diagnoses Moderate persistent asthma with acute exacerbation J45.41 Asthma complication type: with acute exacerbation Asthma persistence: persistent Asthma severity: moderate Environmental allergies Z91.09 Cough R05.9 Shortness of breath R06.02 Dyspnea type: shortness of breath
== END 2024-12-30 15:40 | disposition home or self-care (01) ==
PROVIDERS: PCP Family Medicine; Visit Provider Nurse Practitioner Family
DX: J45.41 Moderate persistent asthma with (acute) exacerbation (principal); Z91.09 Other allergy status, other than to drugs and biological substances; R05.9 Cough, unspecified; R06.02 Shortness of breath
CPT/HCPCS: 99214

== ENCOUNTER 2025-02-15 13:58 | Outpatient (AMB) | payer OTHER, SELFPAY ==
--- NOTE | 2025-02-15 14:03 | A.OFFVIS_ITS ---
Vital Signs 02/15/25 14:13 Height 5 ft 3 in Weight 236 lb 5.369 oz BMI 41.9 BP 160/78 H Blood Pressure Location Rt brachial Position Sitting Pulse 82 Pulse Source Pulse Oximeter Pulse Oximetry (%) 94 Oxygen Delivery Method Room Air Intake Visit Reasons: 3 month follow up Intake Note: ESTABLISHED PATIENT for mgmt of constipation + bloating. Chief Complaint; C/O recent weight gain, idiopathic in nature per pt. Pt reports weight gain of 2 kg over the last 2-4 weeks. Additionally, pt needs refills of all GI meds, and reports that they are still quite effective. Pt denies any fecal abn at this time. Pt also reports additional concern regarding their BP today. Pt denies any dizziness, chest pain, or SOB, but reports increased BP today. At home, pt reports BP of 140/120 this morning. BP elevated at this visit as well. Will check manually at end of visit. Optician Apprentice Dispensing Required: Yes Optician Apprentice Dispensing Services: Optician Apprentice Dispensing Present Optician Apprentice Dispensing Name: Kaela [id number] Information Interpreted: clinical only Accompanied by: Self / Same As Patient Allergies procaine [From Novocain] Allergy (Mild, Verified 12/30/24 15:14) Redness of Skin HPI HPI 3 month follow up: Details: LAST VISIT: Postprandial abdominal bloating Abdominal pain, LUQ (left upper quadrant) Status post colonoscopy Hemorrhoids without complication Plan Continue Dulcolax. Increase fluid intake and activity to promote better bowel motility. Patient will be given script for Proctosol for her hemorrhoids. Patient can also do Sitz baths with Epsom salts. Patient is interested in losing weight and has tried different diets and is very unsuccessful. Patient will speak to her PCP, however I recommended her trying berberine for breakfast and lunch to see if she will have results with that. That could suppress her craving for carbs. However this is just a supplement and if patient will have diarrhea, constipation, abdominal pain she is to stop the medication. She will follow-up in our office in 3 months to re-evaluate. Patient will also consider possibly going for bariatric surgery if necessary. Patient is agreeable to current plan of care and verbalizes understanding of instructions. She was given the opportunity to ask questions and all questions answered. ? Thank you for allowing me to participate in her care Medications New hydrocortisone 2.5% (Proctosol HC) 1 appl [place] BID-QID PRN 30 grams 2RF hemorrhoids K64.9 bisacodyl (Dulcolax (bisacodyl)) 10 mg (2 x 5 mg) PO BEDTIME 180 tabs 4RF Discontinued hydrocortisone 2.5% (Anusol-HC) Apply every night Discontinued Reason: Doctor's Order 1 appl [place] BEDTIME 14 days 30 grams 0RF TODAY'S VISIT: Patient is here today for follow-up. She reports she tried better in, however s he gain almost 5 lb in the past 3 weeks. Patient 1 is speak to her PCP about starting weekly injectables G LP 1 to see if she will lose weight. Patient was also diagnosed with pre diabetes just recently. A1c 6.2 % in October. Patient has repeat for A1c in the system and was encouraged to get that done. Has appointment with PCP end of this month. Patient denies dyspepsia, dysphagia or odynophagia. Denies melena, hematochezia, unintentional weight loss or ribbon like stools. Patient denies any mucus in her stools. Moving her bowels well with Dulcolax [facility] Medical History Fibroid Hemorrhoids Varicose veins of both legs with edema Asthma Surgical History History of colonoscopy (~2012) No pertinent past surgical history Family History Mother High blood pressure Glaucoma Father Radiation adverse effect Social History Household Members: Children Housing: House Are you a primary home health care social worker to a significant other at home: No Do you presently have visiting nurse or other home services: No Alcohol intake: current Alcohol intake frequency: holidays/special occasions only Patient Tobacco Use Status: Never used Tobacco e-Cigarette/Vaping Use: Never Used service: No Current occupational status: other Cognitive needs: No Hearing needs: No Vision needs: No Review of Systems Const Denies weight gain and Denies weight loss ENT Reports no additional complaints, Denies dysphagia and Denies odynophagia Card Reports no additional complaints Resp Reports no additional complaints GI Denies abdominal pain, Denies belching, Denies melena, Denies bloating, Denies change in bowel habits, Denies dysphagia, Denies excessive flatus, Denies dyspepsia, Denies heartburn, Denies diarrhea, Denies loose stools, Denies nausea, Denies odynophagia and Denies vomiting Musc Reports no additional complaints Neuro Reports no additional complaints Psych Reports no additional complaints Endo Reports no additional complaints Physical Exam Vital Signs: Last Vital Signs Pulse 82 02/15/25 14:13 BP 160/78 H 02/15/25 14:13 Pulse Ox 94 02/15/25 14:13 Oxygen Delivery Method Room Air 02/15/25 14:13 BMI result Body Mass Index 41.9 Const General: healthy appearing and no acute distress Nutritional Appearance: obese Orientation/consciousness: patient oriented x3 Resp Effort & Inspection: normal respiratory effort, able to speak in complete sentences, no tracheal deviation and symmetric chest movement Auscultation: clear to auscultation bilaterally Cardio Rate: regular rate GI Inspection: Yes normal to inspection, No distended and Yes obesity Palpation (GI): Soft to palpation, not firm, nontender and No hepatosplenomegaly present Auscultation: normal bowel sounds General: Yes no CVA tenderness Back/Spine/Pelvis Back: no CVA tenderness Skin General skin exam: elasticity normal, turgor normal and dry skin Neuro General: patient oriented x3 Psych Appearance: grossly normal Mental Status: mental status grossly normal Assessment & Plan Assessment & Plan (1) Elevated liver enzymes: Code(s): R74.8 - Abnormal levels of other serum enzymes Category: Medical (2) Postprandial abdominal bloating: Code(s): R14.0 - Abdominal distension (gaseous) (3) Abdominal pain, LUQ (left upper quadrant): Code(s): R10.12 - Left upper quadrant pain (4) Hemorrhoids without complication: Code(s): K64.9 - Unspecified hemorrhoids (5) Constipation: Code(s): K59.00 - Constipation, unspecified Qualifiers: Constipation type: slow transit constipation Qualified Code(s): K59.01 - Slow transit constipation Plan Elevated ALT. Patient was encouraged to speak to her PCP about possibly going on GLP 1 to help her not only with improving A1c but also losing weight. Patient could start Ozempic. However discussed with patient avoiding carbs, eat more protein and low fat diet. Eat more vegetables. Patient will follow-up in our office in 6 months, sooner on as needed basis. She is agreeable to this plan and verbalizes understanding of instructions. She was given the opportunity to ask questions and all questions answered. Thank you for allowing me to participate in her care Medications: Refilled bisacodyl (Dulcolax (bisacodyl)) 10 mg (2 x 5 mg) PO BEDTIME 180 tabs 4RF Coding Level of Care Code Est Pt Level 3 (47620) Diagnoses Elevated liver enzymes R74.8 Postprandial abdominal bloating R14.0 Abdominal pain, LUQ (left upper quadrant) R10.12 Hemorrhoids without complication K64.9 Slow transit constipation K59.01 Constipation type: slow transit constipation Time Spent (min) 30 Comment 20 minutes spent with patient and additional 10 minutes spent reviewing her records
[2025-02-15 14:13] VITALS: BP 160/78; PULSE 82; O2SAT 94; BMI 41.9
== END 2025-02-15 14:38 | disposition home or self-care (01) ==
LOC: HO.HGI 13:58
PROVIDERS: PCP Internal Medicine; Visit Provider Nurse Practitioner Family
DX: R74.8 Abnormal levels of other serum enzymes (principal); R14.0 Abdominal distension (gaseous); R10.12 Left upper quadrant pain; K64.9 Unspecified hemorrhoids; K59.01 Slow transit constipation
CPT/HCPCS: 99213

== ENCOUNTER → 2025-02-15 13:58 | Outpatient (BNVA) | payer OTHER, SELFPAY | PROVIDERS: PCP Internal Medicine; Visit Provider Nurse Practitioner Family | DX: K59.01 Slow transit constipation (principal); K64.9 Unspecified hemorrhoids; R74.8 Abnormal levels of other serum enzymes; R14.0 Abdominal distension (gaseous); R10.12 Left upper quadrant pain | CPT/HCPCS: 99212 ==

== ENCOUNTER 2025-02-23 15:13 | Outpatient (AMB) | payer OTHER, SELFPAY ==
--- NOTE | 2025-02-23 15:24 | A.OFFVIS_ITS ---
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 She admits to occasional left-sided pain that is dull, low back pain, she has no urinary symptoms. Denies any vaginal bleeding. COUNT INCLUDES THE [facility] Medical History Fibroid Hemorrhoids Varicose veins of both legs with edema Asthma Surgical History History of colonoscopy (~2012) No pertinent past surgical history Family History Mother High blood pressure Glaucoma Father Radiation adverse effect Social History Household Members: Children Housing: House Are you a primary career guidance technician to a significant other at home: No Do you presently have visiting nurse or other home services: No Alcohol intake: current Alcohol intake frequency: holidays/special occasions only Patient Tobacco Use Status: Never used Tobacco e-Cigarette/Vaping Use: Never Used service: No Current occupational status: other Cognitive needs: No Hearing needs: No Vision needs: No Review of Systems Const All systems reviewed & are unremarkable except as noted in HPI and below Endo Reports no additional complaints Physical Exam Const General: cooperative, healthy appearing and no acute distress Psych Appearance: well kempt Attitude: cooperative Thought process: Normal thought process present Results Reviewed Results Reviewed: [address] [address] Ultrasound Report Signed with Yesi Patient: Thu Baron MR#: [id number] : 1965 Acct:[id number] Age/Sex: 59 / F ADM Date: 10/21/24 Loc: HO. Attending Dr: Ban Lziarraga CNM Ordering Physician: Ban Lizarraga CNM Date of Service: 10/21/24 Procedure(s): US pelvic and transvaginal Accession Number(s): [id number] cc: Brendan Chew MD; Ban Lizarraga CNM~ ADDENDUM ADDENDUM #1 Results Acknowledgement: Exam results confirmed at 11:50 AM with Paige Alston national insurance officer. Flagging results for provider. Sandra Lynn, 11/18/2024 12:15 PM Electronically signed by: Daniella Sparks MD 11/21/2024 05:41 AM EST RP Addendum Dictated By: Daniella Sparks MD Addendum Signed By: <Electronically signed by Daniella Sparks MD in OV> 11/21/24 0541 Addendum Cosigned By: DD/ TD/TT: 10/21/24 ADDENDUM #1 Results Acknowledgement: Exam results confirmed at 11:50 AM with Paige Alston national insurance officer. Flagging results for provider. Sandra Lynn, 11/18/2024 12:15 PM Electronically signed by: Daniella Sparks MD 11/21/2024 05:41 AM EST RP ORIGINAL REPORT EXAMINATION: US PELVIS CLINICAL INFORMATION: History of fibroids, ultrasound in [facility] 3 years ago per patient, postmenopausal, right lower quadrant pain. COMPARISON: None available. TECHNIQUE: Ultrasound of the pelvis is performed using both transabdominal and transvaginal transducers along with Doppler. Transvaginal imaging is performed due to inadequate visualization transabdominally. FINDINGS: The anteverted uterus measures 9.3 x 3.9 x 4.1 cm. Right ovary not visualized. Limited visualization due to bowel gas and body habitus. Left ovary measures 2.5 x 1.2 x 1.6 cm, volume 2.5 mL. Left ovary seen only on transabdominal ultrasound images and visualization is limited. Endometrial thickness is 5 mm, but visualization of the endometrium is also limited. There are tiny cystic areas within the endometrium. Multiple tiny echogenic areas within the endometrium, possibly representing polyps, the largest measured 3 mm. 1.8 x 1.5 x 1.6 cm uterine mass is characteristic of a fibroid. Uterus is heterogeneous in echotexture. Limited visualization particularly of the fundal aspect of the uterus. Complex and simple nabothian cysts. IMPRESSION: 1. Endometrial thickness is 5 mm, but visualization of the endometrium is also limited. There are tiny cystic areas within the endometrium. Multiple tiny echogenic areas within the endometrium, possibly representing polyps, the largest measured 3 mm. 2. A 1.8 cm uterine mass is characteristic of a fibroid. Uterus is heterogeneous in echotexture. 3. Right ovary not visualized. Left ovary seen only on limited transabdominal ultrasound images. Limited visualization due to bowel gas and body habitus. 4. Per access control specialist's statement, a French certified court interpreter was present for the exam. This study was presented to me on November 15, 2023 for interpretation. [facility] staff will provide results to referring provider at this time. Electronically signed by: Daniella Sparks MD 11/15/2024 06:13 AM EST RP US/US pelvic and transvaginal IMPRESSION: 1. Endometrial thickness is 5 mm, but visualization of the endometrium is also limited. There are tiny cystic areas within the endometrium. Multiple tiny echogenic areas within the endometrium, possibly representing polyps, the largest measured 3 mm. 2. A 1.8 cm uterine mass is characteristic of a fibroid. Uterus is heterogeneous in echotexture. 3. Right ovary not visualized. Left ovary seen only on limited transabdominal ultrasound images. Limited visualization due to bowel gas and body habitus. 4. Per access control specialist's statement, a French certified court interpreter was present for the exam. This study was presented to me on November 15, 2023 for interpretation. PSA staff will provide results to referring provider at this time. Electronically signed by: Daniella Sparks MD 11/15/2024 06:13 AM EST RP Dictated By: Daniella Sparks MD Signed By: <Electronically signed by Daniella Sparks MD in OV> 11/21/24 0541 DD/ 1519 TD/TT: 10/21/24 1537 Adolescent Counselor: Assessment & Plan Assessment & Plan (1) Fibroid: Code(s): D21.9 - Benign neoplasm of connective and other soft tissue, unspecified Category: Medical Plan: Discuss: Ultrasound findings- IMPRESSION: 1. Endometrial thickness is 5 mm, but visualization of the endometrium is also limited. There are tiny cystic areas within the endometrium. Multiple tiny echogenic areas within the endometrium, possibly representing polyps, the largest measured 3 mm. 2. A 1.8 cm uterine mass is characteristic of a fibroid. Uterus is heterogeneous in echotexture. 3. Right ovary not visualized. Left ovary seen only on limited transabdominal ultrasound images. Limited visualization due to bowel gas and body habitus. Reviewed endometrial lining is considered abnormally thick for postmenopausal women, additionally there are tiny cystic areas most likely polyps, recommendations is to do hysteroscopy procedure for removal and evaluation of the tissue sample. The patient expressed understanding and agreement with the plan of care. All of her questions and concerns were addressed to the best of my ability. Appointment to be made for hysteroscopy consult with Dr. Funez. Plan Counseled re: Leiomyoma: common pelvic neoplasm. Differential diagnosis-may include but not limited to- leiomyosarcoma which is a rare uterine sarcoma 3- 7/100,000, difficult to distinguish from fibroids on ultrasound from uterine sarcoma's. Unlikely any single test will have a highly positive predictive value. Hysterectomy is not recommended for sole purpose of excluding malignant neoplasm. Consult for surgical exploration, medical treatment, other treatments, verses expectant management, pros and cons, risks and benefits. Expectant management follow up in 6 months, then yearly for stability. Patient prefers to proceed with expectant management. Report any PMB, pelvic pressure, bloating, or pain. Referral to MD if indicated for level of care if indicated. Ultrasound follow up scheduled for March, follow up in office to discuss test results. The patient expressed understanding and agreement with the plan of care. All of her questions and concerns were addressed to the best of my ability. Total time I personally spent on visit and management today: ?45 minutes. Time spent included review of pertinent office notes in the electronic health record; review of laboratory and imaging results; review of personal family medical history; performing physical exam; discussing diagnosis and plan of care with the patient; documenting the encounter in the EMR. This note is constructed using voice recognition software. While every effort has been made to ensure accuracy, arc and gas welder errors may have been included. Orders: Orders US pelvic and transvaginal 1 Month D21.9 - Benign neoplasm of connective and other soft tissue, unspecified Coding Level of Care Code Est Pt Level 3 (23063) Diagnoses Fibroid D21.9
== END 2025-02-23 16:48 | disposition home or self-care (01) ==
LOC: HO.HWS 15:13
PROVIDERS: PCP Family Medicine; Visit Provider Advanced Practice Midwife
DX: D21.9 Benign neoplasm of connective and other soft tissue, unspecified (principal)
CPT/HCPCS: 99213

== ENCOUNTER → 2025-02-23 15:13 | Outpatient (BNVA) | payer OTHER, SELFPAY | PROVIDERS: PCP Family Medicine; Visit Provider Advanced Practice Midwife | DX: D21.9 Benign neoplasm of connective and other soft tissue, unspecified (principal) | CPT/HCPCS: 99212 ==

== ENCOUNTER 2025-02-24 12:11 | Outpatient (AMB) | payer OTHER, SELFPAY ==
[2025-02-24 12:46] VITALS: BMI 41.8
--- NOTE | 2025-02-24 12:46 | MHC.OFFVIS ---
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 Required: Yes Accompanied by: Self / Same As Patient Allergies procaine [From Novocain] Allergy (Mild, Verified 02/24/25 12:47) Redness of Skin PFSH Medical History Fibroid Hemorrhoids Varicose veins of both legs with edema Asthma Surgical History History of colonoscopy (~2012) No pertinent past surgical history Family History Mother High blood pressure Glaucoma Father Radiation adverse effect Social History Household Members: Children Housing: House Are you a primary summer child caregiver to a significant other at home: No Do you presently have visiting nurse or other home services: No Alcohol intake: current Alcohol intake frequency: holidays/special occasions only Patient Tobacco Use Status: Never used Tobacco e-Cigarette/Vaping Use: Never Used service: No Current occupational status: other Cognitive needs: No Hearing needs: No Vision needs: No Physical Exam Vital Signs: BMI result Body Mass Index 41.8 Office Procedures Vascular Office Procedure Details Details: Diagnosis: Right Leg varicose veins with inflammation Procedure: Endovenous Ablation of the right Great Saphenous Vein with VenaSeal Closure System Anesthesia: Local infiltration 5 cc, Java Systems Analyst: YESSENIA Braswell Estimated Blood Loss: min Specimen: none Duplex ultrasound was used to map out the insufficient saphenous vein, and access was determined and marked on the overlying skin. The depth and diameter of the vein(s) to be treated was documented. The patient was placed supine on the procedure table and the leg was prepped and draped using sterile technique. Ultasound guidance was again used to localize the access site. 1% lidocaine was injected as a local anesthetic in the subcutaneous tissues at the target location in the GSV in the lower leg. Using ultrasound guidance, access was gained at this location with the 19 gauge thin walled access needle and followed by introduction of a short guidewire, location confirmed with ultrasound. A small, 3 mm incision was made at the access site to allow for introduction and placement of the 7 Fr x7cm introducer/dilator. The dilator and guidewire were removed. The 0.035 guidewire from the VenaSeal kit was then introduced and positioned at the saphenofemoral junction using ultrasound guidance. The 80 cm 7 Fr introducer sheath/dilator was positioned 5cm from the saphenofemoral junction. The guidewire and dilator were removed, and the remaining sheath was flushed with sterile saline, with the syringe remaining in place prior to the next steps. The cyanoacrylate adhesive was precisely primed into the 5 F delivery catheter and this catheter/syringe combination was attached within the dispenser gun. This assembly was introduced through the 7F sheath and positioned 5 cm caudal of the saphenofemoral junction under ultrasound guidance. The steps from the IFU were followed for dispensing amounts, locations and compression times, 2 aliquots proximally with 3 minutes of compression, and 1 aliquot every 3 cm distally with 30 sec of compression along the course of the vessel. Following the last injection and compression sequence, the catheter and introducer sheath were pulled out from the access site. Hemostasis was achieved with manual compression and an adhesive bandage was applied to the incision. Ultrasound confirmed complete coaptation and closure of the treated segments of the GSV, and the absence of any DVT at the saphenofemoral junction. Treatment time was approximately 6 minutes and the vein length treated was 40 cm. The drapes were removed and the patient cleaned and prepared for discharge. Post op ultrasound check is scheduled for 48-72 hours and the patient was given written post-op instructions. 97168 - Endoven Ther Chem Adhes 1st All charges added?: Procedure code (CPT) selection complete Assessment & Plan Assessment & Plan (1) Varicose veins of right lower extremity with inflammation: Comment: 02/24/2025 - right great saphenous vein Cyanoacralate ablation Code(s): I83.11 - Varicose veins of right lower extremity with inflammation Category: Medical Plan: See op note Coding Level of Care Code Procedure Only Diagnoses Varicose veins of right lower extremity with inflammation I83.11 CPT Codes Details - Vascular 3: 55541 - Endoven Ther Chem Adhes 1st ([id number])
== END 2025-02-24 13:09 | disposition home or self-care (01) ==
LOC: HO.HVS 12:11
PROVIDERS: PCP Family Medicine; Visit Provider Surgery Vascular Surgery
DX: I83.11 Varicose veins of right lower extremity with inflammation (principal)
CPT/HCPCS: 36482

== ENCOUNTER → 2025-02-24 12:11 | Outpatient (BNVA) | payer OTHER, SELFPAY | PROVIDERS: PCP Family Medicine; Visit Provider Surgery Vascular Surgery | DX: I83.11 Varicose veins of right lower extremity with inflammation (principal) | CPT/HCPCS: 36482 ==

== ENCOUNTER 2025-02-24 14:06 | Outpatient (REF) | payer OTHER, SELFPAY ==
[2025-02-24 17:35] LABS: Hematocrit 41.3 % (37.0-47.0); Hemoglobin 13.7 g/dl (12.0-16.0); Mean Corpuscular HGB Conc 33.2 g/dl (31.0-35.0); Mean Corpuscular Hemoglobin 30.9 pg (27.0-33.0); Mean Corpuscular Volume 93.2 fL (80.0-98.0); Mean Platelet Volume 10.3 fL (9.4-12.3); Platelet Count 285 X10*3/uL (160-400); Red Blood Count 4.43 X10*6/uL (4.20-5.50); Red Cell Distribution Width 13.4 % (11.0-16.0); White Blood Count 7.8 X10*3/uL (4.8-10.8)
[2025-02-24 17:58] LABS: Estimated Average Glucose 131 mg/dL; Hemoglobin A1C 163.0777 umol/L; Hemoglobin A1c % 6.2 % (<6.0); Total Hemoglobin (HGBA1C) 3685.7631 umol/L
[2025-02-24 18:21] LABS: Alanine Aminotransferase 25 U/L (0-31); Albumin Level 4.3 g/dL (3.5-5.0); Anion Gap 10 (12-20); Aspartate Amino Transferase 21 U/L (5-31); Bilirubin Total 0.4 mg/dL (0.0-1.0); Blood Urea Nitrogen 12 mg/dL (9-16); Calcium 9.2 mg/dL (8.4-10.2); Carbon Dioxide 29 mmol/L (22-29); Chloride 105 mmol/L (96-108); Estimated Glomerular Filt Rate > 60; Glucose Random 104 mg/dL (60-115); Iron 76 mcg/dL (30-160); Percent Iron Saturation 27 % (15-50); Potassium 4.4 mmol/L (3.3-5.1); Sodium 140 mmol/L (135-145); Total Iron Binding Capacity 286 mcg/dL (228-428); Unsaturated Iron Binding 210 ug/dL
[2025-02-24 18:28] LABS: Ferritin 89 ng/mL (10-250); TSH reflex Free T4 1.18 uIU/mL (0.32-4.0); Vitamin D 25-OH Total 64.6 ng/mL (>30)
[2025-02-24 18:34] LABS: Vitamin B12 408 pg/mL (200-900)
[2025-02-24 19:09] LABS: Alkaline Phosphatase 56 U/L (39-117)
[2025-02-28 04:14] LABS: Methylmalonic Acid 99 nmol/L (55-335)
== END 2025-02-24 14:07 | disposition home or self-care (01) ==
LOC: HO.WFDLDS 14:06
PROVIDERS: Visit Provider Physician Assistant Medical
DX: G47.9 Sleep disorder, unspecified (principal); R53.83 Other fatigue
CPT/HCPCS: 36415; 80053; 82306; 82607; 82728; 82746; 83036; 83540; 83921; 84443; 85027

== ENCOUNTER → 2025-03-01 20:30 | Outpatient (REF) | payer OTHER, SELFPAY | LOC: HO.SL 20:30 | PROVIDERS: PCP Internal Medicine; Visit Provider Physician Assistant Medical | DX: G47.30 Sleep apnea, unspecified (principal); R06.83 Snoring | CPT/HCPCS: 95810 ==

== ENCOUNTER → 2025-03-01 21:53 | Outpatient (BNV) | payer OTHER, SELFPAY | PROVIDERS: PCP Internal Medicine; Visit Provider Psychiatry & Neurology Neurology | DX: G47.33 Obstructive sleep apnea (adult) (pediatric) (principal) | CPT/HCPCS: 95810 ==

== ENCOUNTER 2025-03-02 15:01 | Outpatient (AMB) | payer OTHER, SELFPAY ==
--- NOTE | 2025-03-02 15:05 | A.OFFVIS_ITS ---
Intake Visit Reasons: 1 week follow up s/p R GSV Venaseal Intake Note: 1 week follow up s/p Right GSV Venaseal 02/24/25, pt states she has some left LE pain. Director Of Labor And Delivery Required: Yes Director Of Labor And Delivery Language: [place] Citizen Director Of Labor And Delivery Services: Director Of Labor And Delivery Present Director Of Labor And Delivery Name: Av [id number] Allergies procaine [From Novocain] Allergy (Mild, Verified 03/02/25 15:05) Redness of Skin HPI HPI 1 week follow up s/p R GSV Venaseal: Details: The patient is a 59-year-old female presenting for a follow-up after a right gre at saphenous vein ablation. She indicates that the right leg feels much improved with no post-operative complications. During the visit, she reports a persistent ache in the left leg. An ultrasound conducted earlier did not show abnormalities in the left leg, so no immediate treatment was deemed necessary. The patient's right leg procedure has gone smoothly with no noted complications, and now pre sents for postprocedure follow-up [facility] Medical History Fibroid Hemorrhoids Varicose veins of both legs with edema Asthma Surgical History History of colonoscopy (~2012) No pertinent past surgical history Family History Mother High blood pressure Glaucoma Father Radiation adverse effect Social History Household Members: Children Housing: House Are you a primary child care development specialist to a significant other at home: No Do you presently have visiting nurse or other home services: No Alcohol intake: current Alcohol intake frequency: holidays/special occasions only Patient Tobacco Use Status: Never used Tobacco e-Cigarette/Vaping Use: Never Used service: No Current occupational status: other Cognitive needs: No Hearing needs: No Vision needs: No Review of Systems Const Reports as per HPI ENT Reports no additional complaints Card Denies chest pain, Denies chest pain at rest and Denies chest pain with activity Resp Denies chest congestion and Denies cough GI Reports no additional complaints Musc Details: pain over varicosities, aching of lower extremities, swelling, cramping, heaviness and tiredness, itching Denies abnormal gait Skin/Breast Reports pruritus and Denies wounds Neuro Reports no additional complaints and Denies abnormal gait Psych Denies no additional complaints Physical Exam Const General: cooperative, healthy appearing and comfortable Orientation/consciousness: oriented to person, oriented to place and oriented to time Neck Carotids: no bruits Chest Chest palpation & inspection: normal inspection of the chest and normal palpation of entire chest wall Resp Effort & Inspection: normal respiratory effort and able to speak in complete sentences Cardio Rate: regular rate Heart sounds: S1 normal heart sound present and S2 normal heart sound present Peripheral pulses: Peripheral pulses 2+ throughout GI Inspection: Yes normal to inspection Skin Other: +2 edema, large rope-like varicosities greater than 4 mm left leg CEAP Classification C4 - skin color changes Ep - Etiology Primary As - superficial veins P - reflux General skin exam: dry skin Neuro General: oriented to person, oriented to place and oriented to time Extrem Right lower extremity: full ROM, normal capillary refill and edema Left lower extremity: full ROM, normal capillary refill and edema Psych Mental Status: mental status grossly normal Assessment & Plan Assessment & Plan (1) Varicose veins of right lower extremity with inflammation: Comment: 02/24/2025 - right great saphenous vein Cyanoacralate ablation Code(s): I83.11 - Varicose veins of right lower extremity with inflammation Category: Medical Plan: I discussed with the patient the success of the right great saphenous vein ablation, confirming the absence of complications post-procedure. We reviewed the current findings of the left leg, where a prior ultrasound was normal, advising against immediate intervention for the discomfort. However, a follow-up in six months was agreed upon to reevaluate and ensure accurate monitoring. I clarified that should symptoms worsen or new symptoms develop, she should contact our clinic promptly. No other immediate concerns or interventions were necessary at this time. Plan Patient was informed and verbally consented to the use of an ambient scribe for clinic note documentation during this visit. Patient Instructions: - Continue to monitor the leg for any changes. - Report any new or worsening symptoms in the left leg immediately. - Return for follow-up evaluation in six months. - Seek medical attention sooner if symptoms greatly worsen. Coding Level of Care Code Est Pt Level 4 (87303) Diagnoses Varicose veins of right lower extremity with inflammation I83.11
== END 2025-03-02 15:22 | disposition home or self-care (01) ==
LOC: HO.HVS 15:02
PROVIDERS: PCP Family Medicine; Visit Provider Surgery Vascular Surgery
DX: I83.11 Varicose veins of right lower extremity with inflammation (principal)
CPT/HCPCS: 99214

== ENCOUNTER → 2025-03-02 15:01 | Outpatient (BNVA) | payer OTHER, SELFPAY | PROVIDERS: PCP Family Medicine; Visit Provider Surgery Vascular Surgery | DX: I83.11 Varicose veins of right lower extremity with inflammation (principal) | CPT/HCPCS: 99212 ==

== ENCOUNTER 2025-03-24 12:50 | Outpatient (REF) | payer OTHER, SELFPAY ==
--- NOTE | ~2025-03-24 | US_ITS ---
CLINICAL HISTORY: D21.9 - Benign neoplasm of connective and other soft tissue, unspecified US pelvis transabdominal and transvaginal Comparison: None Findings: Transabdominal scanning performed for overall anatomy. Transvaginal scanning performed for additional detail. Anteverted uterus is 9.6 cm length. Fundal fibroid measuring 23 x 22 x 19 mm (previously 1.8 x 1.5 x 1.6 per header setup operator ) Endometrium 5 mm thickness. No lesions. Right ovary 3.4 x 1.3 x 1.7 cm. Left ovary 3.5 x 2.4 x 2.8 cm. Simple appearing cyst measuring 3.1 x 2.0 x 2.4 cm Normal color Doppler of both ovaries. No free fluid. IMPRESSION: 1. Simple appearing left adnexal cyst measuring up to 3.1 cm. Recommend a follow-up ultrasound in 10 weeks to assess for resolution. If this lesion does not resolve annual follow-up is recommended. This document has been electronically signed by: Jasmyn Monzon MD on 03/25/2025 08:25:41
== END 2025-03-24 12:51 | disposition home or self-care (01) ==
LOC: HO.US 12:50
PROVIDERS: PCP Family Medicine; Visit Provider Advanced Practice Midwife
DX: D21.9 Benign neoplasm of connective and other soft tissue, unspecified (principal)
CPT/HCPCS: 76830; 76856

== ENCOUNTER → 2025-03-24 12:52 | Outpatient (BNV) | payer OTHER, SELFPAY | PROVIDERS: PCP Family Medicine; Visit Provider Radiology Diagnostic Radiology | DX: N83.202 Unspecified ovarian cyst, left side (principal) | CPT/HCPCS: 76830; 76856 ==

== ENCOUNTER 2025-03-31 12:05 | Outpatient (AMB) | payer OTHER, SELFPAY ==
[2025-03-31 12:07] VITALS: BP 140/86; PULSE 76; O2SAT 96; BMI 41.8
--- NOTE | 2025-03-31 12:07 | A.OFFVIS_ITS ---
Vital Signs 03/31/25 12:07 Height 5 ft 3 in Weight 236 lb BMI 41.8 BP 140/86 H Blood Pressure Location Lt brachial Position Sitting Pulse 76 Pulse Source Pulse Oximeter Pulse Oximetry (%) 96 Oxygen Delivery Method Room Air Intake Visit Reasons: 3 mnts f/u appt Intake Note: Patient presents follow up Labs/PSG in chart(AHI-8, LG 45%, oxygen below 88% for 37 minutes. Trial AutoPAP 5-20cm water. Overnight oximetry on CPAP to asses need for supplemental oxygen on CPAP.) Patient states that she is experiencing SOB at night, she presented the device from [employer] with her today and she stated she has been using it for 1 yr and 6 months. Orchard Pruner Required: Yes Orchard Pruner Services: Orchard Pruner Present Orchard Pruner Name: Jayden [id number] Information Interpreted: non-clinical & clinical Training Assistant: Training Assistant Present Accompanied by: Daughter Allergies procaine [From Novocain] Allergy (Mild, Verified 03/31/25 12:16) Redness of Skin HPI Comments Details: 60 year old female referred to us by her PCP, she is here for YAA. PSG 02/26/2025 AHI is 8 and oxygen Lg to 45% and 88% for 37min, start CPAP at [id number] and evaluate for supplemental oxygen. She goes to sleep at 9pm and wakes up at 6am with 2 bathroom breaks. She has cold air blowing on her face at night, when using her machine, it does not work well. She snores at night and gasps for air as witnessed by her partner. She was issued a CPAP machine by her career development engineer Juan Dye in August 2023, when diagnosed with Asthma and would like it to be fixed so she can use it daily as it is not functional and she continues to be non-compliant. She has HTN and asthma medications as prescribed, along with lasix for bilateral edema. She has anxiety and takes Trazadone at night to help her relax and fall asleep. She does not smoke but drinks alcohol socially. [facility] Medical History Fibroid Hemorrhoids Varicose veins of both legs with edema Asthma Surgical History History of colonoscopy (~2012) No pertinent past surgical history Family History Mother High blood pressure Glaucoma Father Radiation adverse effect Social History Household Members: Children Housing: House Are you a primary reproductive healthcare assistant to a significant other at home: No Do you presently have visiting nurse or other home services: No Alcohol intake: current Alcohol intake frequency: holidays/special occasions only Patient Tobacco Use Status: Never used Tobacco e-Cigarette/Vaping Use: Never Used service: No Current occupational status: other Cognitive needs: No Hearing needs: No Vision needs: No Physical Exam Vital Signs: Last Vital Signs Pulse 76 03/31/25 12:07 BP 140/86 H 03/31/25 12:07 Pulse Ox 96 03/31/25 12:07 Oxygen Delivery Method Room Air 03/31/25 12:07 BMI result Body Mass Index 41.8 Const General: cooperative, comfortable and no acute distress Orientation/consciousness: patient oriented x3 Eyes Pupils: Equal, round and reactive pupils present Resp Effort & Inspection: normal respiratory effort and able to speak in complete sentences Neuro General: patient oriented x3 and moves all extremities Cranial nerves: Yes Equal, round and reactive pupils present, Yes Normal accommodation reflex present, Yes Normal facial strength present, Yes Midline tongue present, Yes Ability to bilaterally rotate head present and Yes Ability to bilaterally elevate shoulders present Gait exam (Neuro): Normal gait present Motor exam (neuro): 5/5 motor strength present throughout and Normal motor muscle tone present throughout Psych Appearance: grossly normal Thought process: Normal thought process present Thought content: Normal thought content present Results Reviewed Results Reviewed: PSG 02/2025 c/w AHI of 8 and oxygen Lg to 45%, and below 88% for 34 min. Start CPAP therapy at [id number] and evaluate with pulse oximetry overnight. Assessment & Plan Assessment & Plan (1) YAA (obstructive sleep apnea): Code(s): G47.33 - Obstructive sleep apnea (adult) (pediatric) Category: Medical (2) SOB (shortness of breath): Code(s): R06.02 - Shortness of breath Category: Medical (3) Nocturnal hypoxemia: Code(s): G47.34 - Idiopathic sleep related nonobstructive alveolar hypoventilation Category: Medical Plan 02/2025 PSG c/w YAA AHI is and oxygen Lg to 45% and below 88% for 45 min, will start cpap at [id number]. Poulmonology referral SOB and Hypoxemia overnight pulse oximetry, evaluate for supplemental oxygen with cpap. Reviewed Labs with patient, she continues to be hypertensive, with asthma, reviewed medication adherence. 30 min walking daily and lifestyle and diet changes along with 60% of bodyweight in water intake. Orders: Orders Overnight Pulse Oximetry Today G47.34 - Idiopathic sleep related nonobstructive alveolar hypoventilation Referrals Pulmonology Referral G47.34 - Idiopathic sleep related nonobstructive alveolar hypoventilation Patient Instructions: Sleep Hygiene provided: set a scheduled bedtime and wake time to help regulate the circadian rhythm and balance the release of pituitary hormones. Sleep in a dark room, temperatures below 68 degrees, and no devices n bed. Limit caffeinated products 6 hours prior to bed, and limit fluids 2-4 hours prior to bed. Gentle night yoga, diffusing essential oils, and playing soft music can be relaxing. Coding Level of Care Code Est Pt Level 4 (04820) Diagnoses YAA (obstructive sleep apnea) G47.33 SOB (shortness of breath) R06.02 Nocturnal hypoxemia G47.34 Time Spent (min) 20
== END 2025-03-31 12:47 | disposition home or self-care (01) ==
LOC: HO.HSMS 12:05
PROVIDERS: PCP Family Medicine; Visit Provider Physician Assistant Medical
DX: G47.33 Obstructive sleep apnea (adult) (pediatric) (principal); R06.02 Shortness of breath; G47.34 Idiopathic sleep related nonobstructive alveolar hypoventilation
CPT/HCPCS: 99214

== ENCOUNTER → 2025-03-31 12:05 | Outpatient (BNVA) | payer OTHER, SELFPAY | PROVIDERS: PCP Family Medicine; Visit Provider Physician Assistant Medical | DX: G47.33 Obstructive sleep apnea (adult) (pediatric) (principal); G47.34 Idiopathic sleep related nonobstructive alveolar hypoventilation; J45.909 Unspecified asthma, uncomplicated; R06.02 Shortness of breath; Z99.89 Dependence on other enabling machines and devices | CPT/HCPCS: 99212 ==

== ENCOUNTER 2025-04-19 10:39 | Outpatient (REF) | payer OTHER, SELFPAY ==
[2025-04-20 10:48] LABS: CA-125 5 U/mL (<35)
== END 2025-04-19 10:40 | disposition home or self-care (01) ==
LOC: HO.LAB 10:39
PROVIDERS: PCP Family Medicine; Visit Provider Obstetrics & Gynecology
DX: I10 Essential (primary) hypertension (principal); R73.03 Prediabetes; R74.8 Abnormal levels of other serum enzymes; M79.89 Other specified soft tissue disorders; R21 Rash and other nonspecific skin eruption; D25.9 Leiomyoma of uterus, unspecified; N83.209 Unspecified ovarian cyst, unspecified side; N95.0 Postmenopausal bleeding
CPT/HCPCS: 36415; 58100; 83090; 86304; 88305; 99212

== ENCOUNTER 2025-04-19 10:39 | Outpatient (AMB) | payer OTHER, SELFPAY ==
[2025-04-19 10:43] VITALS: BP 142/80; BMI 41.8
--- NOTE | 2025-04-19 10:43 | A.OFFVIS_ITS ---
Vital Signs 04/19/25 10:43 Height 5 ft 3 in Weight 236 lb BMI 41.8 BP 142/80 H Intake Visit Reasons: Hysteroscopy consult Traffic Signal Technician Required: Yes Traffic Signal Technician Language: Burmese Traffic Signal Technician Services: Traffic Signal Technician Present ([email or web address]) Traffic Signal Technician Name: Blake # [id number] Information Interpreted: non-clinical & clinical Accompanied by: Self / Same As Patient Allergies procaine [From Novocain] Allergy (Mild, Verified 04/19/25 10:44) Redness of Skin HPI Comments Details: Presenting referred from Ban Lizarraga CNM regarding postmenopausal bleeding. Pelvic ultrasound done recently showed the following: Anteverted uterus is 9.6 cm length. Fundal fibroid measuring 23 x 22 x 19 mm (previously 1.8 x 1.5 x 1.6 per life consultant ) Endometrium 5 mm thickness. No lesions. Right ovary 3.4 x 1.3 x 1.7 cm. Left ovary 3.5 x 2.4 x 2.8 cm. Simple appearing cyst measuring 3.1 x 2.0 x 2.4 cm Normal color Doppler of both ovaries. No free fluid. last cotest neg last [place] [facility]-1 in 04/07/25 [facility] Medical History Fibroid Hemorrhoids Varicose veins of both legs with edema Asthma Surgical History History of colonoscopy (~2012) No pertinent past surgical history Family History Mother High blood pressure Glaucoma Father Radiation adverse effect Social History Household Members: Children Housing: House Are you a primary neonatal intensive care nurse to a significant other at home: No Do you presently have visiting nurse or other home services: No Alcohol intake: current Alcohol intake frequency: holidays/special occasions only Patient Tobacco Use Status: Never used Tobacco e-Cigarette/Vaping Use: Never Used service: No Current occupational status: other Cognitive needs: No Hearing needs: No Vision needs: No Physical Exam Vital Signs: Last Vital Signs BP 142/80 H 04/19/25 10:43 BMI result Body Mass Index 41.8 Office Procedures Endometrial Biopsy Details: The patient was counseled regarding the indication and benefits of endometrial sampling to rule out endometrial pathology including not limited to endometrial hyperplasia or endometrial cancer and others; The alternatives (Either do nothing vs. hysteroscopy D&C) & the risks were discussed with the patient including but not limited: pain, uterine perforation, bleeding, infection, possible injury to bladder, bowel, ureter, possible need for blood transfusion with all its possible risks. The patient verbalized understanding all questions answered and signed consent. The patient was placed into the dorsal lithotomy position; a speculum was inserted in the vagina. Using aseptic technique for the procedure, the cervix was cleansed with Betadine. The anterior lip of the cervix was grasped with a single tooth tenaculum. The uterus was sounded to 7 cm with a 4 mm Pipelle was used. Tissues samples were obtained and placed in formalin, in a patient labeled container and sent to the pathology department. At the end of the procedure, there was minimal bleedin g noted The patient tolerated the procedure well and was discharged in good condition with the following instructions: Nothing in the vagina until the bleeding stops. No sex until the bleeding stops, to call if any of the following occurs: fever (>100.4), flu-like symptoms, abdominal pain, heavy bleeding, four smelling vaginal discharge. The patient was instructed to schedule a Follow up appointment in 2 weeks to discuss pathology results of the biopsy and treatment options. This note was generated with a voice recognition program. Some errors may have been overlooked during the review of this note. Sometimes these errors may affect the content or meaning of a given sentence. [id number] Biopsy Assessment & Plan Assessment & Plan (1) Uterine myoma: Code(s): D25.9 - Leiomyoma of uterus, unspecified Category: Medical Plan: Discussed with the patient the findings on pelvic ultrasound & the risk of myosarcoma; in addition reviewed with the patient that malignancy and pre malig bairon cannot be ruled out without hysterectomy for pathological evaluation ; furthermore, explained to the patient the limitation of pelvic ultrasound and endometrial sampling in the setting. Discussed with the patient the options of treatment including expectant management versus hysterectomy; the pros and cons, risks benefits of each approach were discussed with the patient including the fact that in cases of myosarcoma, surgical treatment can lead to early diagnosis and positively affects the prognosis; after further discussion, will order repeat pelvic ultrasound within 2 weeks. Instructions given to patient to schedule a pelvic ultrasound (order placed) within 2 weeks and a follow-up appointment . All questions answered, the patient verbalized understanding and agreed with the plan . (2) Ovarian cyst: Code(s): N83.209 - Unspecified ovarian cyst, unspecified side Category: Medical Plan: Discussed with the patient the ovarian cyst by ultrasound. Discussed with the patient the Ultrasound findings, the main limitation of transvaginal ultrasonography alone as a diagnostic tool to distinguish benign from malignant masses relates to its lack of specificity and low positive predictive value for cancer. The differential diagnosis discussed with the patient includes the following but not limited to: benign and malignant gynecological and non- gynecological causes. Serum tumor marker CA 125 wnl Discussed with the patient that CA 125 is a protein associated with epithelial ovarian malignancies, but also frequently expressed at lower levels by nonmalignant tissue. Normal CA 125 levels can be found in ovarian cancer patients. Elevation of CA 125 levels may occur in nonmalignant gynecologic conditions, and in non-gynecologic cancers, It is most useful in postmenopausal women and in identifying non mucinous epithelial cancer. The CA 125 level is elevated in 80% of patients with epithelial ovarian cancer but in only 50% of patients with stage I disease. The overall sensitivity of CA 125 testing in distinguishing benign from malignant adnexal masses reportedly ranges from 61% to 90%; specificity ranges from 71% to 93%, positive predictive value ranges from 35% to 91%, and negative predictive value ranges from 67% to 90%. Discussed with the patient options of treatment , in case CA 125 is not elevated, including laparoscopy ovarian salpingo- oophorectomy vs. expectant management with repeat US in repeating pelvic US in 6 weeks from previous US. If the ovarian cyst is persistent larger and / or changes in Ultrasound appearance & became complex looking, or higher CA 125 will refer to gynecologic Oncology. All pros, cons, risks and benefits of each approach were discussed with the patient including but not limited to a delay in the diagnosis and treatment of ovarian cancer affecting the prognosis; The patient decided to go ahead with expectant management. Pelvic ultrasound ordered in 2 weeks All questions were answered & the patient verbalized understanding and agreed with the plan (3) Post-menopause bleeding: Code(s): N95.0 - Postmenopausal bleeding Category: Medical Plan: Discussed with the patient the differential diagnosis of post menopausal bleeding with normal pelvic exam including but not limited to, endometrial hyperplasia, cancer, polyps and other causes; co testing done, recommended ultrasound to measure the endometrial stripe; discussed with the patient that if the endometrial thickness is 4 mm or less the negative predictive value of endometrial pathology is 99%, otherwise If endometrial thickness is more than 4 mm will proceed with endometrial sampling versus hysteroscopy D&C polypectomy depending on the ultrasound findings. EMB done, see procedure note, instructions given the patient to schedule a 2 week follow-up appointment. All questions answered, the patient verbalized understanding and agreed with the plan. This note was generated with a voice recognition program. Some errors may have been overlooked during the review of this note. Sometimes these errors may affect the content or meaning of a given sentence. Orders: Orders US pelvic and transvaginal 2 Weeks D25.9 - Leiomyoma of uterus, unspecified, N83.209 - Unspecified ovarian cyst, unspecified side CA-125 Today N83.209 - Unspecified ovarian cyst, unspecified side AMB Endometrial Biopsy Today N95.0 - Postmenopausal bleeding Coding Level of Care Code Est Pt Level 3 (39723) Procedure Only Diagnoses Uterine myoma D25.9 Ovarian cyst N83.209 Post-menopause bleeding N95.0 CPT Codes Endometrial Biopsy - CPT: 48915-[id number] Biopsy ([id number])
== END 2025-04-19 11:26 | disposition home or self-care (01) ==
LOC: HO.HWS 10:39
PROVIDERS: PCP Family Medicine; Visit Provider Obstetrics & Gynecology
DX: D25.9 Leiomyoma of uterus, unspecified (principal); N83.202 Unspecified ovarian cyst, left side; N95.0 Postmenopausal bleeding
CPT/HCPCS: 58100; 99213

== ENCOUNTER 2025-04-19 14:24 | Outpatient (AMB) | payer OTHER, SELFPAY ==
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
[2025-04-19 14:35] VITALS: BP 130/64; PULSE 78; RESP 16; TEMP 36.9; O2SAT 98; BMI 42.0
== END 2025-04-19 15:29 | disposition home or self-care (01) ==
LOC: HO.HMCFM 14:25
PROVIDERS: PCP Family Medicine; Visit Provider Family Medicine
DX: I10 Essential (primary) hypertension (principal); R73.03 Prediabetes; R74.8 Abnormal levels of other serum enzymes; M79.89 Other specified soft tissue disorders; R21 Rash and other nonspecific skin eruption; Z11.1 Encounter for screening for respiratory tuberculosis

== ENCOUNTER 2025-04-19 15:17 | Outpatient (REF) | payer OTHER, SELFPAY ==
[2025-04-19 18:26] LABS: Estimated Average Glucose 128 mg/dL; Hemoglobin A1c % 6.1 % (<6.0)
[2025-04-19 18:28] LABS: Alanine Aminotransferase 27 U/L (0-31); Albumin Level 4.7 g/dL (3.5-5.0); Alkaline Phosphatase 68 U/L (39-117); Anion Gap 10 (12-20); Aspartate Amino Transferase 25 U/L (5-31); Bilirubin Total 0.3 mg/dL (0.0-1.0); Blood Urea Nitrogen 12 mg/dL (9-16); Calcium 9.5 mg/dL (8.4-10.2); Carbon Dioxide 32 mmol/L (22-29); Chloride 103 mmol/L (96-108); Cholesterol 207 mg/dL (<200); Estimated Glomerular Filt Rate > 60; Glucose Fasting 104 mg/dL (60-99); HDL Cholesterol 47 mg/dL (>40); LDL Cholesterol Calculated 106 mg/dL (<100); Potassium 4.2 mmol/L (3.3-5.1); Sodium 141 mmol/L (135-145); Total Protein 7.3 g/dL (6.5-8.0); Triglycerides 273 mg/dL (<150)
[2025-04-22 02:38] LABS: TS Negative Control Passed; TS Panel A 0; TS Panel B 0; TS Positive Control Passed; TSpotTB Negative (Negative)
== END 2025-04-19 15:18 | disposition home or self-care (01) ==
LOC: HO.WFDLDS 15:17
PROVIDERS: Visit Provider Family Medicine
DX: Z00.00 Encounter for general adult medical examination without abnormal findings (principal); R73.01 Impaired fasting glucose; Z11.1 Encounter for screening for respiratory tuberculosis
CPT/HCPCS: 36415; 80053; 80061; 83036; 86481

== ENCOUNTER 2025-04-27 12:58 | Outpatient (AMB) | payer OTHER, SELFPAY ==
[2025-04-27 13:03] VITALS: BP 130/80; BMI 40.2
--- NOTE | 2025-04-27 13:03 | A.OFFVIS_ITS ---
Vital Signs 04/27/25 13:03 Height 5 ft 3 in Weight 227 lb BMI 40.2 BP 130/80 Intake Visit Reasons: EMB results/pre op Assembler Utility Buildings Required: Yes Assembler Utility Buildings Language: Serbian Assembler Utility Buildings Services: Assembler Utility Buildings Present (Liquid X) Assembler Utility Buildings Name: Ksenia # [id number] Information Interpreted: non-clinical & clinical Tobacco Grader: Tobacco Grader Present Accompanied by: Self / Same As Patient Allergies procaine (From Novocain) Allergy (Mild, Verified 04/27/25 13:04) Redness of Skin Is last menstrual period known: Yes Last menstrual period: 09/06/20 Post menopausal: Yes Patient : No Do you need a note to return to daycare/school/sports/work: Yes (for surgery on thursday) HPI Comments Details: The patient is presenting after endometrial biopsy. The patient has no complaints, no vaginal bleeding, no feverishness chills or abdominal pain. The endometrial biopsy pathology report showed the following: Endometrium, biopsy: Strips of benign inactive endometrium with surface metaplastic changes, fragments suggesting benign endometrial polyps with cysts, and benign endocervical glandular and squamous epithelium; no atypia or carcinoma PFSH Medical History Fibroid Hemorrhoids Varicose veins of both legs with edema Asthma Surgical History History of colonoscopy (~2012) No pertinent past surgical history Family History Mother High blood pressure Glaucoma Father Radiation adverse effect Social History Household Members: Children Housing: House Are you a primary caregiver assisted living to a significant other at home: No Do you presently have visiting nurse or other home services: No Alcohol intake: current Alcohol intake frequency: holidays/special occasions only Patient Tobacco Use Status: Never used Tobacco e-Cigarette/Vaping Use: Never Used service: No Current occupational status: other Cognitive needs: No Hearing needs: No Vision needs: No Female Reproductive History Menstrual Date of last menstrual period: 09/06/20 Total pregnancies: 2 Full term: 2 Review of Systems Card Reports as per HPI and Reports no additional complaints Resp Reports as per HPI and Reports no additional complaints GI Reports as per HPI and Reports no additional complaints Reports as per HPI Physical Exam Vital Signs: Last Vital Signs BP 130/80 04/27/25 13:03 BMI result Body Mass Index 40.2 Const General: cooperative, healthy appearing and comfortable Resp Effort & Inspection: normal respiratory effort Auscultation: clear to auscultation bilaterally Percussion: percussion normal Cardio Palpation: normal PMI Rate: regular rate Rhythm: regular rhythm Heart sounds: no murmurs and no rubs Peripheral pulses: Peripheral pulses 2+ throughout GI Inspection: Yes normal to inspection Palpation (GI): Soft to palpation, nontender, no guarding, not rigid and No hepatosplenomegaly present Percussion: Yes normal to percussion Auscultation: normal bowel sounds Rectal Exam - Female: deferred Assessment & Plan Assessment & Plan (1) Post-menopause bleeding: Comment: Endometrial polyp on EMB pathology metaplastic changes Code(s): N95.0 - Postmenopausal bleeding Category: Medical Plan: Discussed with the patient the results of the pathology, presence of fragments of endometrial polyp on EMB pathology with possible association with metaplastic changes with future hyperplasia or malignancy recommended hysteroscopy D&C possible polypectomy/myomectomy to rule out endometrial pathology. Discussed with the patient the procedure , all benefits and risks including but not limited to inability to complete the procedure , insufficient endometrial tissue for a complete evaluation of the endometrial cavity , bleeding, infection, possible need for blood transfusion with all its risk ( HIV,syphilis, Hepatitis, anaphylaxis shock, others..), injury to bladder, rectum, possible need for laparoscopy/laparotomy or hysterectomy. The patient verbalized understanding and signed the consent. Instructions given the patient to stay NPO after midnight the day prior to the procedure and to take only the specific medication (s) discussed the morning of the surgical procedure and to schedule a 2 week postoperative appointment Medications: Discontinued semaglutide (Ozempic) for 4 weeks Discontinued Reason: Patient no longer taking 0.25 mg (0.368 mL) subcut QWEEK 28 days 1.472 mL 3RF E66.01 - Morbid (severe) obesity due to excess calories, R73.03 - Prediabetes Coding Level of Care Code Est Pt Level 3 (57856) Diagnoses Post-menopause bleeding N95.0
== END 2025-04-27 14:19 | disposition home or self-care (01) ==
LOC: HO.HWS 12:58
PROVIDERS: PCP Family Medicine; Visit Provider Obstetrics & Gynecology
DX: N95.0 Postmenopausal bleeding (principal)
CPT/HCPCS: 99213

== ENCOUNTER → 2025-04-27 12:58 | Outpatient (BNVA) | payer OTHER, SELFPAY | PROVIDERS: PCP Family Medicine; Visit Provider Obstetrics & Gynecology | DX: N95.0 Postmenopausal bleeding (principal) | CPT/HCPCS: 99212 ==

== ENCOUNTER 2025-05-03 09:46 | Outpatient (REF) | payer OTHER, SELFPAY ==
--- NOTE | ~2025-05-03 | US_ITS ---
CLINICAL HISTORY: N83.209 - Unspecified ovarian cyst, unspecified side Transabdominal and transvaginal pelvic ultrasound Bilateral ovarian Doppler studies Comparison: None Findings: Uterus 10.0 x 3.5 x 4.3 cm. Endometrium 2 mm. 1.3 x 1.4 cm anterior fundal fibroid. No significant free fluid. Small nabothian cysts noted. Right ovary 2.4 x 1.9 x 1.6 cm. Left ovary 2.5 x 1.4 x 1.7 cm. 2.4 x 1.4 cm simple cyst. Impression: Small simple cyst left ovary 1.4 cm anterior fundal fibroid This document has been electronically signed by: Willem Parisi MD on 05/03/2025 22:16:34
[2025-05-05 03:49] LABS: Homocysteine 8.7 umol/L (< or = 13.4)
== END 2025-05-03 09:47 | disposition home or self-care (01) ==
LOC: HO.US 09:46
PROVIDERS: Absent Provider Physician Assistant Medical; PCP Family Medicine; Visit Provider Obstetrics & Gynecology
DX: N83.209 Unspecified ovarian cyst, unspecified side (principal); D25.9 Leiomyoma of uterus, unspecified; R53.82 Chronic fatigue, unspecified
CPT/HCPCS: 36415; 76830; 76856; 83090

== ENCOUNTER → 2025-05-03 09:47 | Outpatient (BNV) | payer OTHER, SELFPAY | PROVIDERS: Absent Provider Physician Assistant Medical; PCP Family Medicine; Visit Provider Radiology Diagnostic Radiology | DX: N83.292 Other ovarian cyst, left side (principal) | CPT/HCPCS: 76830; 76856 ==

== ENCOUNTER 2025-05-05 09:15 | Day surgery (SDC) | payer OTHER, SELFPAY ==
[2025-05-03 08:32] VITALS: BMI 40.2
--- NOTE | 2025-05-03 13:18 | HO.ANESPROP2 ---
Documented by User: Gabrielle Aguilar NP 05/03/25 13:18 HPI - Anesthesia Eval Consult details Narrative: 60yo F for D&C Hysteroscopy possible myomectomy/polypectom PMFSH Active Problems Active Problems: All Active Problems Rash (Acute) Screening for tuberculosis (Acute) Post-menopause bleeding (Acute) Ovarian cyst (Acute) Uterine myoma (Acute) Thickened endometrium (Acute) SOB (shortness of breath) (Acute) YAA (obstructive sleep apnea) (Acute) Nocturnal hypoxemia (Acute) Loud snoring (Acute) Varicose veins of right lower extremity with inflammation (Acute) Difficulty sleeping (Acute) Swelling of lower extremity (Acute) Sleep apnea (Acute) Pre-diabetes (Acute) Fatigue (Acute) Fibroid (Acute) Encounter for well woman exam with routine gynecological exam (Acute) Varicose veins of both lower extremities with inflammation (Acute) Severe obesity (BMI >= 40) (Acute) Obesity (Acute) Elevated LDL cholesterol level (Acute) Elevated fasting glucose (Acute) Elevated liver enzymes (Acute) Mid back pain (Acute) Allergic conjunctivitis (Acute) Adult general medical exam (Acute) Screening for cervical cancer (Acute) Dyspnea (Acute) History of radiation exposure (Acute) H/O chemical exposure (Acute) Environmental allergies (Acute) Cough (Acute) Varicose veins of leg with edema (Acute) Eye irritation (Acute) Osteochondrosis (Acute) Hypertension (Acute) Asthma (Acute) Breast cancer screening by mammogram (Acute) Screening for colon cancer (Acute) Low back pain (Acute) Right knee pain (Acute) Past Medical History Medical History Fibroid Hemorrhoids Varicose veins of both legs with edema Asthma Family History Family History Mother High blood pressure Glaucoma Father Radiation adverse effect Family history of problems with anesthesia: No Surgical History Surgical History History of colonoscopy (~2012) No pertinent past surgical history History of Problems with Anesthesia: No Social History Social History Household Members: Children Housing: House Are you a primary long term care pharmacist to a significant other at home: No Do you presently have visiting nurse or other home services: No Alcohol intake: current Alcohol intake frequency: holidays/special occasions only Patient Tobacco Use Status: Never used Tobacco e-Cigarette/Vaping Use: Never Used Advance Directives: No Advance Directives Information Provided: Yes service: No Current occupational status: other Cognitive needs: No Hearing needs: No Vision needs: No Meds Allergies Allergy/AdvReac Type Severity Reaction Status Date / Time procaine (From Novocain) Allergy Mild Redness of Verified 05/05/25 10:02 Skin Home Medications ?Medication ?Instructions ?Recorded ?Confirmed ?Last Taken ?Type albuterol 90 mcg/actuation aerosol mcg inhalation 02/29/24 04/19/25 10/13/24 History inhaler ipratropium 0.5 mg-albuterol 3 mg ml inhalation BID 02/29/24 04/19/25 10/13/24 History (2.5 mg base)/3 mL nebulization soln Exam Height,Weight and Vital Signs: Height 5 ft 3 in Weight 102.965 kg Assessment and Plan Assessment Anesthesia Assessment: Chart Reviewed Final Anesthetic Review Family History of Problems with Anesthesia: No History of Problems with Anesthesia: No Documented by User: Laure Hoffman MD 05/05/25 10:15 [facility] Past Medical History Medical History Fibroid Hemorrhoids Varicose veins of both legs with edema Asthma Family History Family History Mother High blood pressure Glaucoma Father Radiation adverse effect Surgical History Surgical History History of colonoscopy (~2012) No pertinent past surgical history Social History Social History Household Members: Children Housing: House Are you a primary long term care pharmacist to a significant other at home: No Do you presently have visiting nurse or other home services: No Alcohol intake: current Alcohol intake frequency: holidays/special occasions only Patient Tobacco Use Status: Never used Tobacco e-Cigarette/Vaping Use: Never Used Advance Directives: No Advance Directives Information Provided: Yes service: No Current occupational status: other Cognitive needs: No Hearing needs: No Vision needs: No Meds Allergies Allergy/AdvReac Type Severity Reaction Status Date / Time procaine (From Novocain) Allergy Mild Redness of Verified 05/05/25 10:02 Skin Home Medications ?Medication ?Instructions ?Recorded ?Confirmed ?Last Taken ?Type albuterol 90 mcg/actuation aerosol mcg inhalation 02/29/24 04/19/25 10/13/24 History inhaler ipratropium 0.5 mg-albuterol 3 mg ml inhalation BID 02/29/24 04/19/25 10/13/24 History (2.5 mg base)/3 mL nebulization soln Exam Airway Mallampati Class: II TM Dist: >3cm Neck ROM: Full Heart: rrr Lungs: cta Assessment and Plan Assessment Anesthesia Assessment: Anesthesia Plan Discussed Final Anesthetic Review NPO: Yes ASA Class: III Final Preanesthetic Review: No Changes in Pt Med Stat, Meds/Allgs Chart Reviewed, Consent Obtained/Reviewed and Anes Risks/Benef Reviewed Patient Risk: Intermediate Procedure Risk: Low Anesthetic Plan Anesthetic Plan: GA Disposition: Standard PACU
[2025-05-05] VITALS (8 sets, daily range): BP systolic 127–143; BP diastolic 65–74; PULSE 67–90; RESP 12–16; TEMP 36.1–36.7; O2SAT 94–98; BMI 41.0
[2025-05-05 09:56] LABS: UPreg QC Valid YES
[2025-05-05 09:57] LABS: Urine Pregnancy NEGATIVE (NEGATIVE)
--- NOTE | 2025-05-05 10:29 | MHC.SHP ---
Pre-Procedural Eval Section A - 24 Hr Update-Section A only Date of Service: 05/05/25 The patient is an INPATIENT: No Changes since office visit: No Cold of Flu in the past 2 weeks, No New Medical Problems, No Changes in Medication and No Patient answered all questions The patient has been examined within 24 hours of the surgical procedure. The History & Physical has been completed within 30 days and I have reviewed it.: Yes Section B - Complete if H&P > 30 days Chief Complaint: Postmenopausal bleeding Allergies: Allergies Allergy/AdvReac Type Severity Reaction Status Date / Time procaine (From Novocain) Allergy Mild Redness of Verified 05/05/25 10:02 Skin Plan Diagnosis/Plan: Unchanged I have reviewed the history and physical and performed a pertinent physical examination on my patient. No changes have occurred unless specified. Time Spent With Patient Time: Total time managing care of this patient today ____ minutes.
[2025-05-05] MEDS: Lactated Ringers 1,000 ML 100 ML IVCONT (10:30)
--- NOTE | 2025-05-05 11:23 | P.BOP_ITS ---
Brief Operative Note Date of Service: 05/05/25 Pre-op diagnosis: Post menopausal bleeding, endometral polyp by emb pathology Post-op diagnosis: same Procedure: Hysteroscopy D&C, Polypectomy Surgeon: Aba Funez MD Anesthesia: GLMA Was an Instrument Designer used for this Procedure?: No Estimated blood loss (mL): 0 Pathology: other (Endometrial Scrapping. ) Condition: stable Disposition: PACU
--- NOTE | 2025-05-05 11:26 | P.OP_ITS ---
Operative Note Operative Note Date of Service: 05/05/25 Narrative: Preop Diagnosis: Post Menopausal bleeding, Endometrial polyp by emb pathology Operation: Diagnostic Hysteroscopy, Dilataion & Curettage and polypectomy Post Op Diagnosis: normal endometrial cavity QBL: Minimal Anesthesia: GLMA Surgeon: Aba Funez MD Supervisor Industrial Arts Education: None Complication: None Pathology: Endometrial Scrapings Procedure: The patient was put in the dorsal lithotomy position, scrubbed, and draped in the usual manner. A sterile speculum was inserted in the patient's vagina. The anterior lip of the cervix was grasped with a single tooth tenaculum. The cervix was dilated up to 5 mm, then the scope was inserted in the patient's uterus. Inspection revealed endometrial polyp. The Myosure Reach device was used to sample the 4 quadrants of the uterine cavity; it was introduced through the operative channel done with no complications. The scope was then taken out from the uterine cavity, sharp curettings was carried on with minimal to moderate amount of tissues retrieved. At the end of the procedure, all instruments were taken out of the patient uterine and vaginal cavity. The single tooth tenaculum was removed and homeostasis was assured using pressure,. The patient tolerated the procedure well and was transferred to the PACU in a stable condition.
== END 2025-05-05 13:20 | disposition home or self-care (01) ==
PROVIDERS: PCP Family Medicine; Visit Provider Obstetrics & Gynecology
PROC: 0UDB8ZZ Extraction of Endometrium, Via Natural or Artificial Opening Endoscopic (ICD-10-PCS; CPT 58558; principal; 2025-05-05 11:50)
DX: N95.0 Postmenopausal bleeding (principal); D25.9 Leiomyoma of uterus, unspecified; I83.893 Varicose veins of bilateral lower extremities with other complications; J45.909 Unspecified asthma, uncomplicated; R73.03 Prediabetes; E66.01 Morbid (severe) obesity due to excess calories; Z68.41 Body mass index [BMI] 40.0-44.9, adult; Z79.899 Other long term (current) drug therapy; Z88.8 Allergy status to other drugs, medicaments and biological substances
CPT/HCPCS: 58558; 81025; 88305; J1100; J1885; J2250; J2405; J2704; J3010

== ENCOUNTER → 2025-05-05 09:15 | Outpatient (BNV) | payer OTHER, SELFPAY | PROVIDERS: PCP Family Medicine; Visit Provider Obstetrics & Gynecology | DX: N95.0 Postmenopausal bleeding (principal) | CPT/HCPCS: 58558 ==

== ENCOUNTER 2025-05-16 12:19 | Outpatient (AMB) | payer OTHER, SELFPAY ==
--- NOTE | 2025-05-16 12:30 | MHC.OFFVIS ---
Intake Visit Reasons: post op/US follow up Pc Installation Engineer Required: Yes Pc Installation Engineer Language: Maltese Pc Installation Engineer Services: Pc Installation Engineer Present ([place]) Pc Installation Engineer Name: Ana [id number] Information Interpreted: clinical only Accompanied by: Self / Same As Patient Allergies procaine (From Novocain) Allergy (Mild, Verified 05/05/25 10:02) Redness of Skin HPI Comments Details: The patient is presenting post hysteroscopy D&C no complaints minimal vaginal bleeding no feverishness chills or abdominal pain. The pathology showed the following: Endometrium, curettage: Benign inactive/atrophic endometrium and benign smooth muscle (myometrium vs leiomyoma), and scant endocervical glandular epithelium with squamous metaplasia; no atypia or carcinoma 05/03 pelvic ultrasound showed the following: Uterus 10.0 x 3.5 x 4.3 cm. Endometrium 2 mm. 1.3 x 1.4 cm anterior fundal fibroid. No significant free fluid. Small nabothian cysts noted. Right ovary 2.4 x 1.9 x 1.6 cm. Left ovary 2.5 x 1.4 x 1.7 cm. 2.4 x 1.4 cm simple cyst. [facility] Medical History (Updated 05/05/25 @ 14:29 by Carroll Nielsen PA-C) HTN (hypertension) Fibroid Hemorrhoids Varicose veins of both legs with edema Asthma Surgical History History of colonoscopy (~2012) No pertinent past surgical history Family History Mother High blood pressure Glaucoma Father Radiation adverse effect Social History Household Members: Children Housing: House Are you a primary animal care giver to a significant other at home: No Do you presently have visiting nurse or other home services: No Alcohol intake: current Alcohol intake frequency: holidays/special occasions only Patient Tobacco Use Status: Never used Tobacco e-Cigarette/Vaping Use: Never Used service: No Current occupational status: other Cognitive needs: No Hearing needs: No Vision needs: No Review of Systems Const All systems reviewed & are unremarkable except as noted in HPI and below Reports as per HPI and Reports no additional complaints GI Reports no additional complaints Reports no additional complaints Assessment & Plan Assessment & Plan (1) Post-menopause bleeding: Comment: Endometrial polyp on EMB pathology metaplastic changes Code(s): N95.0 - Postmenopausal bleeding Category: Medical Plan: Discussed with the patient the results of the pathology results. Discussed with the patient the sensitivity, specificity, positive and negative predictive value, of endometrial biopsy in detecting endometrial pathology including but not limited to endometrial hyperplasia, cancer and other pathology; instructed the patient to call in case vaginal bleeding recurs, the next step will be to proceed with further endometrial sampling evaluation to rule out endometrial pathology. All questions answered and the patient verbalized understanding and agreed with the plan. (2) Uterine myoma: Code(s): D25.9 - Leiomyoma of uterus, unspecified Category: Medical Plan: Discussed with the patient the findings on pelvic ultrasound & the risk of myosarcoma; in addition reviewed with the patient that malignancy and pre malignancy cannot be ruled out without hysterectomy for pathological evaluation ; furthermore, explained to the patient the limitation of pelvic ultrasound and endometrial biopsy in the setting. Discussed with the patient the options of treatment including expectant management versus hysterectomy; the pros and cons, risks benefits of each approach were discussed with the patient including the fact that in cases of myosarcoma, surgical treatment can lead to early diagnosis and positively affects the prognosis; after further discussion, the patient decided to proceed with expectant management. Will repeat pelvic ultrasound periodically. Instructions given to patient to call in case any of the following occurs: pressure symptoms, abnormal uterine bleeding, pelvic pain; and to schedule a six-months pelvic ultrasound (order placed) and a follow-up appointment . All questions answered, the patient verbalized understanding and agreed with the plan . (3) Ovarian cyst: Code(s): N83.209 - Unspecified ovarian cyst, unspecified side Category: Medical Plan: Discussed with the patient the the finding on a pelvic ultrasound showing a simple ovarian cyst with no evidence of suspicious features, with a size of less than 10 cm. Discussed the patient the limitation of pelvic ultrasound to differentiate between benign and malignant ovarian cyst. Explained to the patient that pelvic Ultrasound characteristics of benign masses include simple appearance: thin, smooth grag; and the absence of solid components, septations, or internal blood flow on color Doppler ultrasound imaging. These simple cysts are highly likely to be benign in any age group. Studies have shown that spontaneous resolution occurs in more than 2/3 of cases. Simple cysts are almost always universally benign, regardless of menopausal status or cyst size, with malignancy rates in most series of 0?1% . CA 125, ovarian cancer serum marker test, is indicated to evaluate likelihood of malignancy and need for surgery. Elevated levels in combination with other findings can be useful to distinguish between benign and malignant adnexal masses. Specificity and positive predictive value of CA 125 levels are consistently higher in postmenopausal woman compared to premenopausal woman. Although CA 125 level measurement is Last valuable in predicting cancer risk in premenopausal woman thin in postmenopausal woman extreme values increase suspicion for a malignant process. The overall sensitivity of CA 125 in distinguish in benign from malignant adnexal mass ranges be 61-91 % and negative for active value ranges from 67-90%. Recommended CA 125 and repeat ultrasound in 6 months. Instructions given the patient to schedule a 6 months follow-up pelvic ultrasound with follow-up appointment afterwards. All questions answered, the patient verbalized understanding. Orders: Orders US pelvic and transvaginal 6 Months D25.9 - Leiomyoma of uterus, unspecified, N83.209 - Unspecified ovarian cyst, unspecified side CA-125 Today N83.209 - Unspecified ovarian cyst, unspecified side Coding Level of Care Code Est Pt Level 3 (71213) Diagnoses Post-menopause bleeding N95.0 Uterine myoma D25.9 Ovarian cyst N83.209
== END 2025-05-16 13:07 | disposition home or self-care (01) ==
LOC: HO.HWS 12:19
PROVIDERS: PCP Family Medicine; Visit Provider Obstetrics & Gynecology
DX: N95.0 Postmenopausal bleeding (principal); D25.9 Leiomyoma of uterus, unspecified; N83.209 Unspecified ovarian cyst, unspecified side
CPT/HCPCS: 99213

== ENCOUNTER 2025-05-16 12:19 | Outpatient (REF) | payer OTHER, SELFPAY ==
[2025-05-17 09:33] LABS: CA-125 6 U/mL (<35)
== END 2025-05-16 12:20 | disposition home or self-care (01) ==
LOC: HO.LAB 12:19
PROVIDERS: PCP Family Medicine; Visit Provider Obstetrics & Gynecology
DX: N95.0 Postmenopausal bleeding (principal); D25.9 Leiomyoma of uterus, unspecified; N83.299 Other ovarian cyst, unspecified side
CPT/HCPCS: 36415; 86304; 99212

== ENCOUNTER 2025-05-17 14:03 | Outpatient (AMB) | payer OTHER, SELFPAY ==
--- NOTE | 2025-05-17 14:16 | MHC.OFFVIS ---
Vital Signs 05/17/25 14:17 Height 5 ft 3 in Weight 237 lb 8 oz BMI 42.1 BP 140/86 H Blood Pressure Location Lt brachial Position Sitting Pulse 84 Pulse Source Pulse Oximeter Pulse Oximetry (%) 95 Oxygen Delivery Method Room Air Intake Visit Reasons: Asthma / PFT Follow up/cpap Mold Carrier Required: Yes Mold Carrier Language: Mauritian Mold Carrier Name: Jayden [id number] Allergies procaine (From Novocain) Allergy (Mild, Verified 05/05/25 10:02) Redness of Skin HPI HPI Asthma / PFT Follow up/cpap: Details: Thu is a pleasant 60 year old female, never smoker, with underlying asthma, severe YAA and HTN. She has been moderately controlled on Symbicort, Spiriva, singulair, duoneb BID and albuterol MDI PRN. She reports over the last two weeks progressively worsening dry cough, difficulty expectorating with grayish sputum, nasal congestion, chest tightness, increased dyspnea and wheezing. She also notes feeling feverish, no documented temp and denies sick contacts. Of note, she is under the care of Sleep Medicine and was recently started on 1L supplemental oxygen NOC for nocturnal hypoxemia, mild YAA on CPAP. [facility] Medical History (Updated 05/05/25 @ 14:29 by Carroll Nielsen PA-C) HTN (hypertension) Fibroid Hemorrhoids Varicose veins of both legs with edema Asthma Surgical History History of colonoscopy (~2012) No pertinent past surgical history Family History Mother High blood pressure Glaucoma Father Radiation adverse effect Social History Household Members: Children Housing: House Are you a primary director day care center to a significant other at home: No Do you presently have visiting nurse or other home services: No Alcohol intake: current Alcohol intake frequency: holidays/special occasions only Patient Tobacco Use Status: Never used Tobacco e-Cigarette/Vaping Use: Never Used service: No Current occupational status: other Cognitive needs: No Hearing needs: No Vision needs: No Review of Systems Const Denies chills, Denies excessive sweating, Denies headache(s) and Denies night sweats Eyes Denies dry eyes, Denies irritation and Denies itchy eyes ENT Reports Normal hearing present, Denies headache(s), Denies nasal discharge, Denies post nasal drip and Denies sore throat Card Denies chest pain, Denies chest pain at rest, Denies chest pain with activity, Denies claudication, Denies leg edema, Denies dyspnea, Reports dyspnea on exertion, Denies orthopnea and Denies paroxysmal nocturnal dyspnea Resp Reports change in phlegm color, Reports chest congestion, Reports cough, Denies hemoptysis, Denies excessive phlegm production, Denies pain on inspiration, Denies pain with cough, Denies dyspnea, Reports dyspnea on exertion, Denies stridor and Reports wheezing Musc Denies myalgias Neuro Reports Normal hearing present and Denies headache(s) Endo Denies excessive sweating Jonh/Lymph Denies lymphadenopathy Aller/Immun Denies itchy eyes, Denies seasonal rhinorrhea and Reports wheezing Physical Exam Vital Signs: Last Vital Signs Pulse 84 05/17/25 14:17 BP 140/86 H 05/17/25 14:17 Pulse Ox 95 05/17/25 14:17 Oxygen Delivery Method Room Air 05/17/25 14:17 BMI result Body Mass Index 42.1 Const General: cooperative, healthy appearing, comfortable, no acute distress, well developed and alert Nutritional Appearance: obese Orientation/consciousness: patient oriented x3 Limitations: no limitations HEENT Head: Yes normal to inspection, Yes normocephalic and Yes atraumatic Ears: hearing grossly normal bilaterally and external ears normal Eyes General: appearance normal, both eyes and all related structures Eyelids: Yes eyelids normal Sclerae: sclerae normal EOM: EOMs intact bilaterally Neck Neck: Yes normal visual inspection and Yes no lymphadenopathy Lymphatic: no lymphadenopathy noted Chest Chest palpation & inspection: normal inspection of the chest Resp Effort & Inspection: normal respiratory effort, able to speak in complete sentences, no audible wheezes, no stridor, not tachypneic, no tripod positioning and no use of accessory muscles Auscultation: wheezes and diminished lung sounds Cardio Jugular venous distension: no JVD Rate: regular rate Rhythm: regular rhythm Skin Other: warm, dry General skin exam: no rashes or lesions noted Neuro General: patient oriented x3 Cranial nerves: Yes Normal hearing present Cognition (Neuro): normal cognition Gait exam (Neuro): Normal gait present Extrem General: Yes normal to inspection, Yes capillary refill normal, Yes no clubbing, cyanosis or edema and Yes no pedal edema Psych Appearance: grossly normal and well kempt Speech and movement: Normal speech and movement present and Clear speech present Affect: normal affect Attitude: cooperative Thought process: Normal thought process present Thought content: Normal thought content present Insight: Good insight present (Psych) Judgement: Good judgement present (Psych) Assessment & Plan Assessment & Plan (1) Asthma: Code(s): J45.909 - Unspecified asthma, uncomplicated Category: Medical Qualifiers: Asthma complication type: with acute exacerbation Asthma persistence: persistent Asthma severity: moderate Qualified Code(s): J45.41 - Moderate persistent asthma with (acute) exacerbation (2) Environmental allergies: Code(s): Z91.09 - Other allergy status, other than to drugs and biological substances Category: Medical (3) Cough: Code(s): R05.9 - Cough, unspecified Category: Medical (4) Dyspnea: Code(s): R06.00 - Dyspnea, unspecified Category: Medical Qualifiers: Dyspnea type: shortness of breath Qualified Code(s): R06.02 - Shortness of breath Plan Will treat bronchitic symptoms with doxycycline and prednisone. Will also send for CXR given length of symptoms. She is aware to call if symptoms do not improve or if symptoms worsen seek emergent care. Encouraged increased use of nebulizer and mucinex. May need to consider biologic. All questions were answered and patient is in agreement of plan. Will follow up in 6-8 weeks or sooner if needed. Orders: Orders XR chest 2V 05/17/25 R06.02 - Shortness of breath Medications: New doxycycline hyclate 100 mg PO BID 14 caps 0RF dextromethorphan-guaifenesin 30-600 mg (Mucinex DM) 1 tab PO Q12H PRN 30 tabs 0RF cough prednisone 40 mg (2 x 20 mg) PO DAILY 10 tabs 0RF Refilled montelukast 10 mg PO BEDTIME 30 tabs 6RF Coding Level of Care Code Est Pt Level 4 (85274) Diagnoses Moderate persistent asthma with acute exacerbation J45.41 Asthma complication type: with acute exacerbation Asthma persistence: persistent Asthma severity: moderate Environmental allergies Z91.09 Cough R05.9 Shortness of breath R06.02 Dyspnea type: shortness of breath
[2025-05-17 14:17] VITALS: BP 140/86; PULSE 84; O2SAT 95; BMI 42.1
== END 2025-05-17 15:05 | disposition home or self-care (01) ==
LOC: HO.HPSW 14:04
PROVIDERS: PCP Family Medicine; Visit Provider Nurse Practitioner Family
DX: J45.41 Moderate persistent asthma with (acute) exacerbation (principal); Z91.09 Other allergy status, other than to drugs and biological substances; R05.9 Cough, unspecified; R06.02 Shortness of breath
CPT/HCPCS: 99214

== ENCOUNTER → 2025-05-17 14:03 | Outpatient (BNVA) | payer OTHER, SELFPAY | PROVIDERS: PCP Family Medicine; Visit Provider Nurse Practitioner Family | DX: J45.41 Moderate persistent asthma with (acute) exacerbation (principal); Z91.09 Other allergy status, other than to drugs and biological substances; R06.00 Dyspnea, unspecified; R05.9 Cough, unspecified | CPT/HCPCS: 99212 ==

== ENCOUNTER 2025-06-05 13:09 | Outpatient (REF) | payer OTHER, SELFPAY ==
--- NOTE | ~2025-06-05 | XR_ITS ---
EXAMINATION: XR CHEST CLINICAL INFORMATION: R06.02 - Shortness of breath COMPARISON: Correlated to CT dated June 08, 2024. TECHNIQUE: 2 views of the chest were obtained. FINDINGS: No consolidation, pleural effusion or pneumothorax. Cardiac mediastinal silhouette size is normal. S-shaped curvature of the thoracic spine multilevel thoracic and upper lumbar spondylosis. Patient's large body habitus. Degenerative changes in the right acromioclavicular joint. XR/XR chest 2V IMPRESSION: No acute airspace disease. Electronically signed by: Sammy Andrews MD 06/05/2025 01:48 PM EDT
== END 2025-06-05 13:10 | disposition home or self-care (01) ==
LOC: HO.XRAY 13:09
PROVIDERS: PCP Family Medicine; Visit Provider Nurse Practitioner Family
DX: R06.02 Shortness of breath (principal)
CPT/HCPCS: 71046

== ENCOUNTER → 2025-06-05 13:15 | Outpatient (BNV) | payer OTHER, SELFPAY | PROVIDERS: PCP Family Medicine; Visit Provider Radiology Diagnostic Radiology | DX: R06.02 Shortness of breath (principal) | CPT/HCPCS: 71046 ==

== ENCOUNTER 2025-06-13 15:20 | Outpatient (AMB) | payer OTHER, SELFPAY ==
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
[2025-06-13 15:28] VITALS: BP 160/80; PULSE 76; RESP 18; TEMP 36.6; O2SAT 96; BMI 43.0
[2025-06-13 15:31] VITALS: BP 140/76
== END 2025-06-13 16:11 | disposition home or self-care (01) ==
LOC: HO.HMCFM 15:20
PROVIDERS: PCP Family Medicine; Visit Provider Family Medicine
DX: M54.9 Dorsalgia, unspecified (principal); I10 Essential (primary) hypertension; E66.01 Morbid (severe) obesity due to excess calories; Z68.41 Body mass index [BMI] 40.0-44.9, adult

== ENCOUNTER → 2025-06-13 15:20 | Outpatient (BNVA) | payer OTHER, SELFPAY | PROVIDERS: PCP Family Medicine; Visit Provider Family Medicine | DX: I10 Essential (primary) hypertension (principal); M47.819 Spondylosis without myelopathy or radiculopathy, site unspecified; E66.01 Morbid (severe) obesity due to excess calories; Z68.41 Body mass index [BMI] 40.0-44.9, adult | CPT/HCPCS: 99212 ==

== ENCOUNTER 2025-06-27 15:05 | Outpatient (AMB) | payer OTHER, SELFPAY ==
--- NOTE | 2025-06-27 15:07 | MHC.OFFVIS ---
Vital Signs 06/27/25 15:10 Height 5 ft 3 in Weight 242 lb 2 oz BMI 42.9 BP 146/84 H Blood Pressure Location Rt brachial Position Sitting Pulse 78 Pulse Source Pulse Oximeter Pulse Oximetry (%) 96 Oxygen Delivery Method Room Air Intake Visit Reasons: Asthma Door Manager Required: Yes Door Manager Language: Guatemalan Door Manager Services: Door Manager Present Door Manager Name: Denise [id number] Allergies procaine (From Novocain) Allergy (Mild, Verified 06/27/25 15:17) Redness of Skin HPI HPI Asthma: Details: Thu is a pleasant 60 year old female, never smoker, with underlying asthma, severe YAA and HTN. She has been moderately controlled on Symbicort, Spiriva, singulair, duoneb QD and albuterol MDI PRN. At the last visit she reported bronchitic symptoms and treated with doxycycline however symptoms have persisted and continues with productive cough with greensih brown sputum with associated nasal and chest congestion. She denies fevers or chills, reports grandson sick at this time. Prior CXR unremarkable. She also notes increased dyspnea and wheezing. Of note, she is under the care of Sleep Medicine and was recently started on 1L supplemental oxygen NOC for nocturnal hypoxemia, mild YAA on CPAP. COUNTS INCLUDE 234 BEDS AT THE [facility] Medical History (Updated 06/13/25 @ 16:12 by Brendan Chew MD) HTN (hypertension) Fibroid Hemorrhoids Varicose veins of both legs with edema Asthma Surgical History History of colonoscopy (~2012) No pertinent past surgical history Family History Mother High blood pressure Glaucoma Father Radiation adverse effect Social History Household Members: Children Housing: House Are you a primary healthcare management consultant to a significant other at home: No Do you presently have visiting nurse or other home services: No Alcohol intake: current Alcohol intake frequency: holidays/special occasions only Patient Tobacco Use Status: Never used Tobacco e-Cigarette/Vaping Use: Never Used service: No Current occupational status: other Cognitive needs: No Hearing needs: No Vision needs: No Review of Systems Const Denies chills, Denies excessive sweating, Denies headache(s) and Denies night sweats Eyes Denies dry eyes, Denies irritation and Denies itchy eyes ENT Reports Normal hearing present, Denies headache(s), Reports nasal congestion, Denies nasal discharge, Reports post nasal drip and Denies sore throat Card Denies chest pain, Denies chest pain at rest, Denies chest pain with activity, Denies claudication, Denies leg edema, Denies dyspnea, Reports dyspnea on exertion, Denies orthopnea and Denies paroxysmal nocturnal dyspnea Resp Reports change in phlegm color, Reports chest congestion, Reports cough, Denies hemoptysis, Denies excessive phlegm production, Denies pain on inspiration, Denies pain with cough, Denies dyspnea, Reports dyspnea on exertion, Denies stridor and Reports wheezing Musc Denies myalgias Neuro Reports Normal hearing present and Denies headache(s) Endo Denies excessive sweating Jonh/Lymph Denies lymphadenopathy Aller/Immun Denies itchy eyes, Denies seasonal rhinorrhea and Reports wheezing Physical Exam Vital Signs: Last Vital Signs Pulse 78 06/27/25 15:10 BP 146/84 H 06/27/25 15:10 Pulse Ox 96 06/27/25 15:10 Oxygen Delivery Method Room Air 06/27/25 15:10 BMI result Body Mass Index 42.9 Const General: cooperative, healthy appearing, comfortable, no acute distress, well developed and alert Nutritional Appearance: obese Orientation/consciousness: patient oriented x3 Limitations: no limitations HEENT Head: Yes normal to inspection, Yes normocephalic and Yes atraumatic Ears: hearing grossly normal bilaterally and external ears normal Eyes General: appearance normal, both eyes and all related structures Eyelids: Yes eyelids normal Sclerae: sclerae normal EOM: EOMs intact bilaterally Neck Neck: Yes normal visual inspection and Yes no lymphadenopathy Lymphatic: no lymphadenopathy noted Chest Chest palpation & inspection: normal inspection of the chest Resp Effort & Inspection: normal respiratory effort, able to speak in complete sentences, no audible wheezes, no stridor, not tachypneic, no tripod positioning and no use of accessory muscles Auscultation: diminished lung sounds Cardio Jugular venous distension: no JVD Rate: regular rate Rhythm: regular rhythm Skin Other: warm, dry General skin exam: no rashes or lesions noted Neuro General: patient oriented x3 Cranial nerves: Yes Normal hearing present Cognition (Neuro): normal cognition Gait exam (Neuro): Normal gait present Extrem General: Yes normal to inspection, Yes capillary refill normal, Yes no clubbing, cyanosis or edema and Yes no pedal edema Psych Appearance: grossly normal and well kempt Speech and movement: Normal speech and movement present and Clear speech present Affect: normal affect Attitude: cooperative Thought process: Normal thought process present Thought content: Normal thought content present Insight: Good insight present (Psych) Judgement: Good judgement present (Psych) Assessment & Plan Assessment & Plan (1) Asthma: Code(s): J45.909 - Unspecified asthma, uncomplicated Category: Medical Qualifiers: Asthma complication type: with acute exacerbation Asthma persistence: persistent Asthma severity: moderate Qualified Code(s): J45.41 - Moderate persistent asthma with (acute) exacerbation (2) Environmental allergies: Code(s): Z91.09 - Other allergy status, other than to drugs and biological substances Category: Medical (3) Cough: Code(s): R05.9 - Cough, unspecified Category: Medical (4) Dyspnea: Code(s): R06.00 - Dyspnea, unspecified Category: Medical Qualifiers: Dyspnea type: shortness of breath Qualified Code(s): R06.02 - Shortness of breath Plan Will treat bronchitic symptoms with Augmentin. She is aware to call if symptoms do not improve or if symptoms worsen seek emergent care. Encouraged increased use of nebulizer BID and mucinex. May need to consider biologic which we discussed today however patient not interested at this time. She also reports ongoing nasal congestion and post nasal drip, will trial ipratropium QD. All questions were answered and patient is in agreement of plan. Will follow up in 6-8 weeks or sooner if needed. Medications: New ipratropium bromide administer into each nostril 2 sprays intranasal DAILY 30 mL 3RF amoxicillin-pot clavulanate 875-125 mg 1 tab PO Q12H 20 tabs 0RF Coding Level of Care Code Est Pt Level 4 (74204) Diagnoses Moderate persistent asthma with acute exacerbation J45.41 Asthma complication type: with acute exacerbation Asthma persistence: persistent Asthma severity: moderate Environmental allergies Z91.09 Cough R05.9 Shortness of breath R06.02 Dyspnea type: shortness of breath
[2025-06-27 15:10] VITALS: BP 146/84; PULSE 78; O2SAT 96; BMI 42.9
== END 2025-06-27 15:52 | disposition home or self-care (01) ==
LOC: HO.HPSW 15:06
PROVIDERS: PCP Family Medicine; Visit Provider Nurse Practitioner Family
DX: J45.41 Moderate persistent asthma with (acute) exacerbation (principal); Z91.09 Other allergy status, other than to drugs and biological substances; R05.9 Cough, unspecified; R06.02 Shortness of breath
CPT/HCPCS: 99214

== ENCOUNTER → 2025-06-27 15:05 | Outpatient (BNVA) | payer OTHER, SELFPAY | PROVIDERS: PCP Family Medicine; Visit Provider Nurse Practitioner Family | DX: J45.41 Moderate persistent asthma with (acute) exacerbation (principal); R05.9 Cough, unspecified; Z91.09 Other allergy status, other than to drugs and biological substances | CPT/HCPCS: 99212 ==

== ENCOUNTER 2025-07-07 13:05 | Outpatient (AMB) | payer OTHER, SELFPAY ==
--- NOTE | 2025-07-07 13:10 | MHC.OFFVIS ---
Vital Signs 07/07/25 13:11 Height 5 ft 3 in Weight 242 lb 8 oz BMI 43.0 BP 134/72 Blood Pressure Location Rt brachial Position Sitting Pulse 75 Pulse Source Pulse Oximeter Pulse Oximetry (%) 96 Oxygen Delivery Method Room Air Intake Visit Reasons: 3 mnts f/u Intake Note: Patient presents follow up YAA. Change sleep mask covers nose and mask. wants one only to go over her nose. Cloth Finishing Range Operator Chief Required: Yes Cloth Finishing Range Operator Chief Language: Croatian Cloth Finishing Range Operator Chief Services: Cloth Finishing Range Operator Chief Present Cloth Finishing Range Operator Chief Name: [id number] Information Interpreted: non-clinical & clinical Allergies procaine (From Novocain) Allergy (Mild, Verified 07/07/25 13:16) Redness of Skin HPI Comments Details: 60 year old female presents for a f/u appt for yaa. PSG 02/26/2025 AHI is 8 and oxygen nadirs to 45%, and below 88% for 37min, start CPAP at [id number] and evaluate for supplemental oxygen. 03/2025 She had an overnight pulse oximetry study and was started on 1 liter of oxygen with cpap use. She has asthma and needs a mask that covers the nose only so when she coughs at night she is able to spit out the sputum. She notices she sleeps well with her cpap and feels more energetic in the morning. She snores if the mask is not on at night and when the mask is on she does not snore. Pt. education was provided re: using the mask daily at night and for >4 hours a night. She has HTN well managed now and bp has improved. She has anxiety and takes Trazadone at night to help her relax and fall asleep. She has RLS with pins, needles, and radiating sensation up the ankles to the shins. She does not smoke but drinks alcohol socially. [facility] Medical History HTN (hypertension) Fibroid Hemorrhoids Varicose veins of both legs with edema Asthma Surgical History History of colonoscopy (~2012) No pertinent past surgical history Family History Mother High blood pressure Glaucoma Father Radiation adverse effect Social History Household Members: Children Housing: House Are you a primary critical care physician to a significant other at home: No Do you presently have visiting nurse or other home services: No Alcohol intake: current Alcohol intake frequency: holidays/special occasions only Patient Tobacco Use Status: Never used Tobacco e-Cigarette/Vaping Use: Never Used service: No Current occupational status: other Cognitive needs: No Hearing needs: No Vision needs: No Physical Exam Vital Signs: Last Vital Signs Pulse 75 07/07/25 13:11 BP 134/72 07/07/25 13:11 Pulse Ox 96 07/07/25 13:11 Oxygen Delivery Method Room Air 07/07/25 13:11 BMI result Body Mass Index 43.0 Const General: cooperative, comfortable and no acute distress Orientation/consciousness: patient oriented x3 Eyes Pupils: Equal, round and reactive pupils present Resp Effort & Inspection: normal respiratory effort and able to speak in complete sentences Neuro General: patient oriented x3 and moves all extremities Cranial nerves: Yes Equal, round and reactive pupils present, Yes Normal accommodation reflex present, Yes Nystagmus not present, Yes Normal facial strength present, Yes Midline tongue present, Yes Ability to bilaterally rotate head present and Yes Ability to bilaterally elevate shoulders present Cognition (Neuro): normal cognition Gait exam (Neuro): Normal gait present and Wide-based gait present Motor exam (neuro): Abnormal motor strength present and Abnormal muscle tone present Psych Appearance: grossly normal Thought process: Normal thought process present Thought content: Normal thought content present Results Reviewed Results Reviewed: YAA severe, results reviewed with pt. she says pulse oximetry overnight was completed though I have no results. PSG 02/26/2025 AHI is 8 and oxygen nadirs to 45%, and below 88% for 37min, start CPAP at [id number] and evaluate for supplemental oxygen. She needs mask fitting to determine mask type for coughing at night. Assessment & Plan Assessment & Plan (1) Sleep apnea: Comment: severe need pulse oximetry overnight. Code(s): G47.30 - Sleep apnea, unspecified Category: Medical Qualifiers: Sleep apnea type: central sleep apnea associated with underlying condition Qualified Code(s): G47.37 - Central sleep apnea in conditions classified elsewhere (2) Asthma: Code(s): J45.909 - Unspecified asthma, uncomplicated Category: Medical Qualifiers: Asthma complication type: with acute exacerbation Asthma persistence: persistent Asthma severity: moderate Qualified Code(s): J45.41 - Moderate persistent asthma with (acute) exacerbation (3) Loud snoring: Code(s): R06.83 - Snoring Category: Medical (4) Fatigue: Code(s): R53.83 - Other fatigue Category: Medical Qualifiers: Fatigue type: chronic, unspecified Qualified Code(s): R53.82 - Chronic fatigue, unspecified (5) Dyspnea: Code(s): R06.00 - Dyspnea, unspecified Category: Medical Qualifiers: Dyspnea type: shortness of breath Qualified Code(s): R06.02 - Shortness of breath Plan Severe YAA : continue cpap and >4 hours daily at night. Astma She needs mask fitting to determine mask type for coughing at night. Snoring loudly PSG Polysomnography with in lab sleep study completed, patient does not understand the severity, significant pt. education today with bilingual interpreter and compliance due to severity of oxygen desaturation. Pulse oximetry overnight? Pt. says it was completed, however will f/u for results. Fatigue Labs to r/o deficiencies f/u in 3 months. Patient Instructions: Sleep Hygiene provided: set a scheduled bedtime and wake time to help regulate the circadian rhythm and balance the release of pituitary hormones. Sleep in a dark room, temperatures below 68 degrees, and no devices n bed. Limit caffeinated products 6 hours prior to bed, and limit fluids 2-4 hours prior to bed. Gentle night yoga, diffusing essential oils, and playing soft music can be relaxing. Coding Level of Care Code Est Pt Level 4 (01622) Diagnoses Central sleep apnea due to medical condition G47.37 Sleep apnea type: central sleep apnea associated with underlying condition Moderate persistent asthma with acute exacerbation J45.41 Asthma complication type: with acute exacerbation Asthma persistence: persistent Asthma severity: moderate Loud snoring R06.83 Chronic fatigue R53.82 Fatigue type: chronic, unspecified Shortness of breath R06.02 Dyspnea type: shortness of breath
[2025-07-07 13:11] VITALS: BP 134/72; PULSE 75; O2SAT 96; BMI 43.0
== END 2025-07-07 13:57 | disposition home or self-care (01) ==
LOC: HO.HSMS 13:06
PROVIDERS: PCP Family Medicine; Visit Provider Physician Assistant Medical
DX: J45.41 Moderate persistent asthma with (acute) exacerbation (principal); G47.37 Central sleep apnea in conditions classified elsewhere; R06.83 Snoring; R53.82 Chronic fatigue, unspecified; R06.02 Shortness of breath
CPT/HCPCS: 99214

== ENCOUNTER → 2025-07-07 13:05 | Outpatient (BNVA) | payer OTHER, SELFPAY | PROVIDERS: PCP Family Medicine; Visit Provider Physician Assistant Medical | DX: J45.41 Moderate persistent asthma with (acute) exacerbation (principal); G47.37 Central sleep apnea in conditions classified elsewhere; R06.83 Snoring; R53.82 Chronic fatigue, unspecified; R06.02 Shortness of breath; G25.81 Restless legs syndrome | CPT/HCPCS: 99212 ==

== ENCOUNTER 2025-08-18 13:19 | Outpatient (AMB) | payer OTHER, SELFPAY ==
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
[2025-08-18 14:02] VITALS: BP 130/78; PULSE 82; RESP 17; TEMP 36.3; O2SAT 95; BMI 42.4
== END 2025-08-18 14:47 | disposition home or self-care (01) ==
LOC: HO.HMCFM 13:20
PROVIDERS: PCP Family Medicine; Visit Provider Family Medicine
DX: R73.03 Prediabetes (principal)

== ENCOUNTER → 2025-08-18 13:19 | Outpatient (BNVA) | payer OTHER, SELFPAY | PROVIDERS: PCP Family Medicine; Visit Provider Family Medicine | DX: R73.03 Prediabetes (principal); I10 Essential (primary) hypertension; M54.9 Dorsalgia, unspecified; E53.8 Deficiency of other specified B group vitamins | CPT/HCPCS: 83036; 99212 ==

== ENCOUNTER 2025-08-31 15:02 | Outpatient (AMB) | payer OTHER, SELFPAY ==
--- NOTE | 2025-08-31 15:08 | A.OFFVIS_ITS ---
Intake Visit Reasons: 6 month check Intake Note: Patient presents for 6 month check. Patient states she feels heaviness and swelling, trouble ambulating. Single Corner Cutter Required: Yes Accompanied by: Self / Same As Patient Allergies procaine (From Novocain) Allergy (Mild, Verified 08/31/25 15:08) Redness of Skin HPI HPI 6 month check: Details: Pleasant 60-year-old female presents for follow-up regarding venous disease. She had actually undergone right great saphenous vein ablation with us back in June of this year. She reported she did fairly well with that and now is for routine six-month follow-up. She is concerned about multiple varicosities in particular her right knee. She does have some discomfort in bilateral lower e xtremities but right more so than left. She has been compliant with her compression which has provided minimal relief. She now presents for follow-up in routine vein check. [facility] Medical History HTN (hypertension) Fibroid Hemorrhoids Varicose veins of both legs with edema Asthma Surgical History History of colonoscopy (~2012) No pertinent past surgical history Family History (Updated 08/18/25 @ 14:02 by Sade Araiza CMA) Mother High blood pressure Glaucoma Father Radiation adverse effect Social History (Updated 08/18/25 @ 14:02 by Sade Araiza CMA) Household Members: Children Housing: House Are you a primary animal care attendant to a significant other at home: No Do you presently have visiting nurse or other home services: No Alcohol intake: current Alcohol intake frequency: holidays/special occasions only Patient Tobacco Use Status: Never used Tobacco e-Cigarette/Vaping Use: Never Used Second Hand Smoke Exposure: No service: No Current occupational status: other Cognitive needs: No Hearing needs: No Vision needs: No Review of Systems Const Reports as per HPI ENT Reports no additional complaints Card Denies chest pain, Denies chest pain at rest and Denies chest pain with activity Resp Denies chest congestion and Denies cough GI Reports no additional complaints Musc Details: pain over varicosities, aching of lower extremities, swelling, cramping, heaviness and tiredness, itching Denies abnormal gait Skin/Breast Reports pruritus and Denies wounds Neuro Reports no additional complaints and Denies abnormal gait Psych Denies no additional complaints Physical Exam Const General: cooperative, healthy appearing and comfortable Orientation/consciousness: oriented to person, oriented to place and oriented to time Neck Carotids: no bruits Chest Chest palpation & inspection: normal inspection of the chest and normal palpation of entire chest wall Resp Effort & Inspection: normal respiratory effort and able to speak in complete sentences Cardio Rate: regular rate Heart sounds: S1 normal heart sound present and S2 normal heart sound present Peripheral pulses: Peripheral pulses 2+ throughout GI Inspection: Yes normal to inspection Skin Other: +2 edema, large rope-like varicosities greater than 4 mm right knee and calf CEAP Classification C4 - skin color changes Ep - Etiology Primary As - superficial veins P - reflux General skin exam: dry skin Neuro General: oriented to person, oriented to place and oriented to time Extrem Right lower extremity: full ROM, normal capillary refill and edema Left lower extremity: full ROM, normal capillary refill and edema Psych Mental Status: mental status grossly normal Assessment & Plan Assessment & Plan (1) Varicose veins of right lower extremity with inflammation: Comment: 02/24/2025 - right great saphenous vein Cyanoacralate ablation Code(s): I83.11 - Varicose veins of right lower extremity with inflammation Category: Medical Plan: This patient has varicose veins with inflammation. They continue to be a source of discomfort for the patient. The patient has tried conservative treatment with compression, leg elevation and exercise program for over 3 months time. They have been compliant with all treatment. This has provided minimal relief for the patient. I do not anticipate this course of treatment will alter the underlying etiology. The patient has been scheduled for lower extremity venous treatment inclusive of --- right lower extremity microphlebectomy. Risks, benefits, and complications of this procedure has been discussed in detail with the patient including but not limited to bleeding, infection, and the development of a DVT. The patient has demonstrated a clear understanding and has consented. We will schedule the patient as soon as possible. Thank you for allowing us to participate in this patient's care. If there are any questions or concerns please do not hesitate to contact us. Coding Level of Care Code Est Pt Level 4 (06630) Diagnoses Varicose veins of right lower extremity with inflammation I83.11
== END 2025-08-31 15:28 | disposition home or self-care (01) ==
LOC: HO.HVS 15:03
PROVIDERS: PCP Family Medicine; Visit Provider Surgery Vascular Surgery
DX: I83.11 Varicose veins of right lower extremity with inflammation (principal)
CPT/HCPCS: 99214

== ENCOUNTER → 2025-08-31 15:02 | Outpatient (BNVA) | payer OTHER, SELFPAY | PROVIDERS: PCP Family Medicine; Visit Provider Surgery Vascular Surgery | DX: I83.11 Varicose veins of right lower extremity with inflammation (principal) | CPT/HCPCS: 99212 ==

== ENCOUNTER 2025-09-19 14:54 | Outpatient (AMB) | payer OTHER, SELFPAY ==
[2025-09-19 14:56] VITALS: BP 136/72; PULSE 81; O2SAT 94; BMI 43.4
--- NOTE | 2025-09-19 14:56 | MHC.OFFVIS ---
Vital Signs 09/19/25 14:56 Height 5 ft 3 in Weight 245 lb 2 oz BMI 43.4 BP 136/72 Blood Pressure Location Rt brachial Position Sitting Pulse 81 Pulse Source Pulse Oximeter Pulse Oximetry (%) 94 Oxygen Delivery Method Room Air Intake Visit Reasons: Asthma Special Education Paraprofessional Required: Yes Special Education Paraprofessional Language: Citizen Of [place] Special Education Paraprofessional Name: [id number] Kalli Allergies procaine (From Novocain) Allergy (Mild, Verified 09/19/25 15:04) Redness of Skin HPI HPI Asthma: Details: Thu is a pleasant 60 year old female, never smoker, with underlying asthma, mild YAA and HTN. At the last visit patient reported bronchitic symptoms and was treated with Augmentin with resolution of symptoms. She reports good control of respiratory symptoms on current regimen of Symbicort, Spiriva, Singulair and DuoNeb p.r.n.. She denies any visits to urgent care or hospitalizations related to respiratory distress since last visit. She has been started on CPAP therapy with supplemental oxygen, under the care of sleep medicine and has been benefitting from use. Of note reviewed overnight oximetry continues with hypoxemia and may benefit from titration study. Of note, she is under the care of Sleep Medicine and was recently started on 1L supplemental oxygen NOC for nocturnal hypoxemia, mild YAA on CPAP. [facility] Medical History HTN (hypertension) Fibroid Hemorrhoids Varicose veins of both legs with edema Asthma Surgical History History of colonoscopy (~2012) No pertinent past surgical history Family History (Updated 08/18/25 @ 14:02 by Sade Araiza CMA) Mother High blood pressure Glaucoma Father Radiation adverse effect Social History Household Members: Children Housing: House Are you a primary palliative care nurse practitioner to a significant other at home: No Do you presently have visiting nurse or other home services: No Alcohol intake: current Alcohol intake frequency: holidays/special occasions only Patient Tobacco Use Status: Never used Tobacco e-Cigarette/Vaping Use: Never Used Second Hand Smoke Exposure: No service: No Current occupational status: other Cognitive needs: No Hearing needs: No Vision needs: No Review of Systems Const Denies chills, Denies excessive sweating, Denies headache(s) and Denies night sweats Eyes Denies dry eyes, Denies irritation and Denies itchy eyes ENT Reports Normal hearing present, Denies headache(s), Reports nasal congestion, Denies nasal discharge, Reports post nasal drip and Denies sore throat Card Denies chest pain, Denies chest pain at rest, Denies chest pain with activity, Denies claudication, Denies leg edema, Denies dyspnea, Denies orthopnea and Denies paroxysmal nocturnal dyspnea Resp Denies hemoptysis, Denies excessive phlegm production, Denies pain on inspiration, Denies pain with cough, Denies dyspnea and Denies stridor Musc Denies myalgias Neuro Reports Normal hearing present and Denies headache(s) Endo Denies excessive sweating Jonh/Lymph Denies lymphadenopathy Aller/Immun Denies itchy eyes and Denies seasonal rhinorrhea Physical Exam Vital Signs: Last Vital Signs Pulse 81 09/19/25 14:56 BP 136/72 09/19/25 14:56 Pulse Ox 94 09/19/25 14:56 Oxygen Delivery Method Room Air 09/19/25 14:56 BMI result Body Mass Index 43.4 Const General: cooperative, healthy appearing, comfortable, no acute distress, well developed and alert Nutritional Appearance: obese Orientation/consciousness: patient oriented x3 Limitations: no limitations HEENT Head: Yes normal to inspection, Yes normocephalic and Yes atraumatic Ears: hearing grossly normal bilaterally and external ears normal Eyes General: appearance normal, both eyes and all related structures Eyelids: Yes eyelids normal Sclerae: sclerae normal EOM: EOMs intact bilaterally Neck Neck: Yes normal visual inspection and Yes no lymphadenopathy Lymphatic: no lymphadenopathy noted Chest Chest palpation & inspection: normal inspection of the chest Resp Effort & Inspection: normal respiratory effort, able to speak in complete sentences, no audible wheezes, no cough, no stridor, not tachypneic, no tripod positioning and no use of accessory muscles Auscultation: clear to auscultation bilaterally Cardio Jugular venous distension: no JVD Rate: regular rate Rhythm: regular rhythm Skin Other: warm, dry General skin exam: no rashes or lesions noted Neuro General: patient oriented x3 Cranial nerves: Yes Normal hearing present Cognition (Neuro): normal cognition Gait exam (Neuro): Normal gait present Extrem General: Yes normal to inspection, Yes capillary refill normal, Yes no clubbing, cyanosis or edema and Yes no pedal edema Psych Appearance: grossly normal and well kempt Speech and movement: Normal speech and movement present and Clear speech present Affect: normal affect Attitude: cooperative Thought process: Normal thought process present Thought content: Normal thought content present Insight: Good insight present (Psych) Judgement: Good judgement present (Psych) Assessment & Plan Assessment & Plan (1) Asthma: Code(s): J45.909 - Unspecified asthma, uncomplicated Category: Medical Qualifiers: Asthma complication type: with acute exacerbation Asthma persistence: persistent Asthma severity: moderate Qualified Code(s): J45.41 - Moderate persistent asthma with (acute) exacerbation (2) Environmental allergies: Code(s): Z91.09 - Other allergy status, other than to drugs and biological substances Category: Medical (3) Cough: Code(s): R05.9 - Cough, unspecified Category: Medical (4) Dyspnea: Code(s): R06.00 - Dyspnea, unspecified Category: Medical Qualifiers: Dyspnea type: shortness of breath Qualified Code(s): R06.02 - Shortness of breath Plan At this time patient reports good control of respiratory symptoms on current regimen, advised to continue. May need to consider biologic if symptoms become less controlled which we had previously discussed and she was not interested at that time. Discussed importance of following up with sleep medicine given persistent nocturnal hypoxemia despite the use of CPAP therapy in 1 L of supplemental oxygen. May benefit from titration study. All questions were answered and patient is in agreement of plan. Will follow up in 3-6 months or sooner if needed. Medications: Refilled budesonide-formoterol 160-4.5 mcg/actuation (Symbicort) 2 puffs inhalation BID 10.2 grams 6RF ipratropium bromide administer into each nostril 2 sprays intranasal DAILY 30 mL 3RF Coding Level of Care Code Est Pt Level 4 (46606) Diagnoses Moderate persistent asthma with acute exacerbation J45.41 Asthma complication type: with acute exacerbation Asthma persistence: persistent Asthma severity: moderate Environmental allergies Z91.09 Cough R05.9 Shortness of breath R06.02 Dyspnea type: shortness of breath
== END 2025-09-19 15:33 | disposition home or self-care (01) ==
PROVIDERS: PCP Family Medicine; Visit Provider Nurse Practitioner Family
DX: J45.41 Moderate persistent asthma with (acute) exacerbation (principal); Z91.09 Other allergy status, other than to drugs and biological substances; R05.9 Cough, unspecified; R06.02 Shortness of breath
CPT/HCPCS: 99214

== ENCOUNTER → 2025-09-19 14:54 | Outpatient (BNVA) | payer OTHER, SELFPAY | PROVIDERS: PCP Family Medicine; Visit Provider Nurse Practitioner Family | DX: J45.41 Moderate persistent asthma with (acute) exacerbation (principal); Z91.09 Other allergy status, other than to drugs and biological substances; R05.9 Cough, unspecified; R06.02 Shortness of breath | CPT/HCPCS: 99212 ==

== ENCOUNTER 2025-09-20 15:51 | Outpatient (AMB) | payer OTHER, SELFPAY ==
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
[2025-09-20 16:12] VITALS: BP 130/78; PULSE 81; RESP 16; TEMP 37; O2SAT 95; BMI 42.4
== END 2025-09-20 16:43 | disposition home or self-care (01) ==
LOC: HO.HMCFM 15:53
PROVIDERS: PCP Family Medicine; Visit Provider Family Medicine
DX: I10 Essential (primary) hypertension (principal); I83.11 Varicose veins of right lower extremity with inflammation; I83.12 Varicose veins of left lower extremity with inflammation; H91.90 Unspecified hearing loss, unspecified ear; K21.9 Gastro-esophageal reflux disease without esophagitis; Z12.11 Encounter for screening for malignant neoplasm of colon; Z12.4 Encounter for screening for malignant neoplasm of cervix; Z12.31 Encounter for screening mammogram for malignant neoplasm of breast; R10.13 Epigastric pain; Z00.00 Encounter for general adult medical examination without abnormal findings

== ENCOUNTER → 2025-09-20 15:51 | Outpatient (BNVA) | payer OTHER, SELFPAY | PROVIDERS: PCP Family Medicine; Visit Provider Family Medicine | DX: Z00.00 Encounter for general adult medical examination without abnormal findings (principal); I10 Essential (primary) hypertension; E11.9 Type 2 diabetes mellitus without complications; I83.11 Varicose veins of right lower extremity with inflammation; I83.12 Varicose veins of left lower extremity with inflammation; H91.90 Unspecified hearing loss, unspecified ear; K21.9 Gastro-esophageal reflux disease without esophagitis; R10.13 Epigastric pain | CPT/HCPCS: 96127; 99212 ==

== ENCOUNTER 2025-10-20 08:26 | Outpatient (AMB) | payer OTHER, SELFPAY ==
--- NOTE | 2025-10-20 09:29 | A.OFFVIS_ITS ---
Intake Visit Reasons: Right Microphlebectomy Ibm Websphere Commerce Developer Required: Yes Ibm Websphere Commerce Developer Name: Irma/ID: [id number] Accompanied by: Self / Same As Patient Allergies procaine (From Novocain) Allergy (Mild, Verified 10/20/25 09:29) Redness of Skin PFSH Medical History HTN (hypertension) Fibroid Hemorrhoids Varicose veins of both legs with edema Asthma Surgical History History of colonoscopy (~2012) No pertinent past surgical history Family History Mother High blood pressure Glaucoma Father Radiation adverse effect Social History Household Members: Children Housing: House Are you a primary health care attorney to a significant other at home: No Do you presently have visiting nurse or other home services: No Alcohol intake: current Alcohol intake frequency: holidays/special occasions only Patient Tobacco Use Status: Never used Tobacco e-Cigarette/Vaping Use: Never Used Second Hand Smoke Exposure: No service: No Current occupational status: other Cognitive needs: No Hearing needs: No Vision needs: No Office Procedures Vascular Office Procedure Details Details: Diagnosis: Right Leg varicose veins with inflammation Procedure: Right leg Microphlebectomy Anesthesia: Local Infiltration 10 cc, Tumescent: 0 cc. Varicose veins were marked in the standing position on the right leg and the patient was then placed in the supine position. The right lower extremity was prepared and draped to allow knee flexion in the sterile field. The patient had large superficial varicose veins with significant symptoms of pain. It was therefore determined to perform microphlebectomies of the clusters of varicose veins. The patient had bulging varicose veins which were previously marked in the standing position. A small stab incision was made longitudinally directly overlying the varicose vein in the calf and the varicose vein was grasped with a hemostat aided by a vein hook. It was then dissected as far proximally and distally as possible and avulsed. A total of 11 stab incisions were made and the procedure of stab phlebectomies was repeated 11 times. Hemostasis was checked and stab incision sites were closed with steri-strips and sterile dressing was given with gauze and krilex wrap followed by an sandeep bandage. There were no complications and blood loss was minimal. Post-Op instructions were given and a follow-up appointment was recommended. 20360 - Phleb Veins, Extrem - up to 20 All charges added?: Procedure code (CPT) selection complete Assessment & Plan Assessment & Plan (1) Varicose veins of right lower extremity with inflammation: Comment: 02/24/2025 - right great saphenous vein Cyanoacralate ablation 10/20/2025 - right leg microphlebectomy Code(s): I83.11 - Varicose veins of right lower extremity with inflammation Category: Medical Plan: See op note Coding Level of Care Code Procedure Only Diagnoses Varicose veins of right lower extremity with inflammation I83.11 CPT Codes Details - Vascular 5: 24723 - Phleb Veins, Extrem - up to 20 ([id number])
== END 2025-10-20 09:31 | disposition home or self-care (01) ==
LOC: HO.HVS 08:27
PROVIDERS: PCP Family Medicine; Visit Provider Surgery Vascular Surgery
DX: I83.11 Varicose veins of right lower extremity with inflammation (principal)
CPT/HCPCS: 37765

== ENCOUNTER → 2025-10-20 08:26 | Outpatient (BNVA) | payer OTHER, SELFPAY | PROVIDERS: PCP Family Medicine; Visit Provider Surgery Vascular Surgery | DX: I83.11 Varicose veins of right lower extremity with inflammation (principal) | CPT/HCPCS: J2003 ==

== ENCOUNTER 2025-10-31 15:06 | Outpatient (AMB) | payer OTHER, SELFPAY ==
[2025-10-31 15:10] VITALS: BP 142/82; PULSE 88; O2SAT 97; BMI 42.7
--- NOTE | 2025-10-31 15:10 | MHC.OFFVIS ---
Vital Signs 10/31/25 15:10 Height 5 ft 3 in Weight 241 lb 2 oz BMI 42.7 BP 142/82 H Blood Pressure Location Rt brachial Position Sitting Pulse 88 Pulse Source Pulse Oximeter Pulse Oximetry (%) 97 Oxygen Delivery Method Room Air Intake Visit Reasons: 3 mo follow up Intake Note: Patient presents follow up YAA Physician Anesthesiologist Required: Yes Physician Anesthesiologist Services: Physician Anesthesiologist Present Physician Anesthesiologist Name: Lisa ID# [id number] Accompanied by: Self / Same As Patient Allergies procaine (From Novocain) Allergy (Mild, Verified 11/01/25 09:34) Redness of Skin HPI Comments Details: 60 year old female presents for an evaluation of YAA and nocturnal hypoxemia. PSG 02/26/2025 AHI is 8 and oxygen nadirs to 45%, and is below 88% for 37min, start CPAP at [id number] and evaluate for supplemental oxygen. 03/2025 She had an overnight pulse oximetry study and was started on 1 liter of oxygen with cpap use. Oct 20, 2025, [facility] R. leg vascular surgery for varicose veins. She has asthma and received her full face mask, so that she is able to pull off the mask at night and cough. She has excessive drooliing and needs to clear her throat out multiple times at night due to choking on sputum. She notices she sleeps well with her cpap and feels more energetic in the morning. She snores if the mask is not on at night. Pt. education was provided using the mask daily at night and for >4 hours a night. She has HTN well managed now and bp has improved with spirinolactone, losartan-Hctz, usually still 175/85 in the am and being managed by her PCP. She has anxiety and takes Trazadone at night and this usually helps her to relax and fall asleep all night. She has RLS with bilateral lower extremity paresthesias, an uncomfortable radiating sensation crawls up the ankles to the shins. She has arthritis, and bilateral edema, she wears compression stockings sometimes as tolerable. [facility] Medical History HTN (hypertension) Fibroid Hemorrhoids Varicose veins of both legs with edema Asthma Surgical History History of colonoscopy (~2012) No pertinent past surgical history Family History Mother High blood pressure Glaucoma Father Radiation adverse effect Social History Household Members: Children Housing: House Are you a primary child care director to a significant other at home: No Do you presently have visiting nurse or other home services: No Alcohol intake: current Alcohol intake frequency: holidays/special occasions only Patient Tobacco Use Status: Never used Tobacco e-Cigarette/Vaping Use: Never Used Second Hand Smoke Exposure: No service: No Current occupational status: other Cognitive needs: No Hearing needs: No Vision needs: No Physical Exam Vital Signs: Last Vital Signs Pulse 88 10/31/25 15:10 BP 142/82 H 10/31/25 15:10 Pulse Ox 97 10/31/25 15:10 Oxygen Delivery Method Room Air 10/31/25 15:10 BMI result Body Mass Index 42.7 Const General: cooperative, comfortable and no acute distress Orientation/consciousness: patient oriented x3 Limitations: language barrier (Malagasy speaking) HEENT Face and sinus: Yes face symmetric Throat: Yes other (mallampti score 4) Eyes Pupils: Equal, round and reactive pupils present Neck Neck: Yes full ROM Resp Effort & Inspection: normal respiratory effort and able to speak in complete sentences Neuro Other: gait is off, waddles, leans General: patient oriented x3 and moves all extremities Cranial nerves: Yes Equal, round and reactive pupils present, Yes Normal accommodation reflex present, Yes Nystagmus not present, Yes Normal facial strength present, Yes Midline tongue present, Yes Ability to bilaterally rotate head present and Yes Ability to bilaterally elevate shoulders present Cognition (Neuro): normal cognition Gait exam (Neuro): Antalgic gait present and Wide-based gait present Motor exam (neuro): Abnormal motor strength present and Abnormal muscle tone present Deep tendon reflexes (DTR's): Right triceps reflex intensity grade: 2+, Left triceps reflex intensity grade: 2+, Rt Biceps (C5, C6): 2+, Left biceps reflex intensity grade: 2+, Right brachioradialis reflex intensity grade: 2+, Left brachioradialis reflex intensity grade: 2+, Right patellar reflex intensity grade: 2+ and Left patellar reflex intensity grade: 2+ Coordination: [id number] test normal Psych Appearance: grossly normal Thought process: Normal thought process present Thought content: Normal thought content present Insight: Good insight present (Psych) Judgement: Good judgement present (Psych) Assessment & Plan Assessment & Plan (1) Sleep apnea: Comment: pulse oximetry reviewed with pt Code(s): G47.30 - Sleep apnea, unspecified Category: Medical Qualifiers: Sleep apnea type: central sleep apnea associated with underlying condition Qualified Code(s): G47.37 - Central sleep apnea in conditions classified elsewhere (2) Asthma: Code(s): J45.909 - Unspecified asthma, uncomplicated Category: Medical Qualifiers: Asthma complication type: with acute exacerbation Asthma persistence: persistent Asthma severity: moderate Qualified Code(s): J45.41 - Moderate persistent asthma with (acute) exacerbation (3) Loud snoring: Code(s): R06.83 - Snoring Category: Medical (4) Fatigue: Code(s): R53.83 - Other fatigue Category: Medical Qualifiers: Fatigue type: chronic, unspecified Qualified Code(s): R53.82 - Chronic fatigue, unspecified (5) Dyspnea: Code(s): R06.00 - Dyspnea, unspecified Category: Medical Qualifiers: Dyspnea type: shortness of breath Qualified Code(s): R06.02 - Shortness of breath (6) Nocturnal hypoxemia: Code(s): G47.34 - Idiopathic sleep related nonobstructive alveolar hypoventilation Category: Medical (7) YAA (obstructive sleep apnea): Code(s): G47.33 - Obstructive sleep apnea (adult) (pediatric) Category: Medical Plan Severe YAA continue cpap and >4 hours daily at night, full face mask -needs her machine looked at with the [facility] as it is filling with water, reviewed oximetry report with pt. will send 1 liter of O2 tank rx/ refill to the [facility]. Asthma managed with spiriva, symbicort, nebulizer and montelakust. Snoring loudly PSG Polysomnography with in lab sleep study completed, pt understands she must use the cpap machine with her O2 tank and compatible hose fittings, due to yaa. Significant pt. education is provided today with electric meter repairer and compliance is necessary to refill her rx with full face mask and supplies. Fatigue Labs to r/o deficiencies. Complete labs. F/u in 3 months Medications: New [oxygen tank] As directed Pt needs a one liter tank of oxygen due to nocturnal hypoxemia with a compatible fitting for her cpap mask. 1 ea 0RF nocturnal hypoxemia G47.33 - Obstructive sleep apnea (adult) (pediatric), G47.34 - Idiopathic sleep related nonobstructive alveolar hypoventilation Patient Instructions: Please complete the following fasting labs to rule out deficiencies. CBC/CMP/ B12/ Vit D/ TSH/ Homocysteine and MMA/ Ferritin. Sleep Hygiene provided: set a scheduled bedtime and wake time to help regulate the circadian rhythm and balance the release of pituitary hormones. Sleep in a dark room, temperatures below 68 degrees, and no devices n bed. Limit caffeinated products 6 hours prior to bed, and limit fluids 2-4 hours prior to bed. Gentle night yoga, diffusing essential oils, and playing soft music can be relaxing. Coding Level of Care Code Est Pt Level 4 (67928) Diagnoses Central sleep apnea due to medical condition G47.37 Sleep apnea type: central sleep apnea associated with underlying condition Moderate persistent asthma with acute exacerbation J45.41 Asthma complication type: with acute exacerbation Asthma persistence: persistent Asthma severity: moderate Loud snoring R06.83 Chronic fatigue R53.82 Fatigue type: chronic, unspecified Shortness of breath R06.02 Dyspnea type: shortness of breath Nocturnal hypoxemia G47.34 YAA (obstructive sleep apnea) G47.33
== END 2025-10-31 16:04 | disposition home or self-care (01) ==
LOC: HO.HSMS 15:07
PROVIDERS: PCP Family Medicine; Visit Provider Physician Assistant Medical
DX: G47.34 Idiopathic sleep related nonobstructive alveolar hypoventilation (principal); G47.33 Obstructive sleep apnea (adult) (pediatric); J45.41 Moderate persistent asthma with (acute) exacerbation; R06.83 Snoring; R53.82 Chronic fatigue, unspecified; R06.02 Shortness of breath
CPT/HCPCS: 99214

== ENCOUNTER → 2025-10-31 15:06 | Outpatient (BNVA) | payer OTHER, SELFPAY | PROVIDERS: PCP Family Medicine; Visit Provider Physician Assistant Medical | DX: G47.33 Obstructive sleep apnea (adult) (pediatric) (principal); G47.37 Central sleep apnea in conditions classified elsewhere; J45.41 Moderate persistent asthma with (acute) exacerbation; R06.83 Snoring; R53.82 Chronic fatigue, unspecified; R06.02 Shortness of breath; G47.34 Idiopathic sleep related nonobstructive alveolar hypoventilation; Z99.89 Dependence on other enabling machines and devices; Z79.51 Long term (current) use of inhaled steroids; Z79.899 Other long term (current) drug therapy; Z72.821 Inadequate sleep hygiene | CPT/HCPCS: 99212 ==

== ENCOUNTER 2025-11-01 09:26 | Outpatient (AMB) | payer OTHER, SELFPAY ==
[2025-11-01 09:29] VITALS: BMI 42.7
--- NOTE | 2025-11-01 09:29 | MHC.OFFVIS ---
Vital Signs 11/01/25 09:29 Height 5 ft 3 in Weight 241 lb BMI 42.7 Intake Visit Reasons: 2 wk follow up Right micro 10/20/25 Intake Note: 2 wk follow up Right LE micro 10/20/25. Pt states some discomfort over treated area Wood Grinder Operator Required: Yes Wood Grinder Operator Language: Azerbaijani Wood Grinder Operator Services: Wood Grinder Operator Present Wood Grinder Operator Name: Nohemi [id number] Information Interpreted: non-clinical & clinical Accompanied by: Self / Same As Patient Allergies procaine (From Novocain) Allergy (Mild, Verified 11/01/25 09:34) Redness of Skin HPI HPI 2 wk follow up Right micro 10/20/25: Details: The patient is a 60 year old female presenting for a follow-up visit status post right lower extremity microphlebectomy. She underwent a right great saphenous vein ablation on 02/24/2025 and a right microphlebectomy two weeks prior to this visit. In general reports good result from procedure. She does have some mild pain and discomfort from postprocedure phlebitis. But overall doing fairly well. IPad deaf interpreter present during exam. [facility] Medical History HTN (hypertension) Fibroid Hemorrhoids Varicose veins of both legs with edema Asthma Surgical History History of colonoscopy (~2012) No pertinent past surgical history Family History Mother High blood pressure Glaucoma Father Radiation adverse effect Social History Household Members: Children Housing: House Are you a primary health care administrator to a significant other at home: No Do you presently have visiting nurse or other home services: No Alcohol intake: current Alcohol intake frequency: holidays/special occasions only Patient Tobacco Use Status: Never used Tobacco e-Cigarette/Vaping Use: Never Used Second Hand Smoke Exposure: No service: No Current occupational status: other Cognitive needs: No Hearing needs: No Vision needs: No Review of Systems Const All systems reviewed & are unremarkable except as noted in HPI and below Reports no additional complaints ENT Reports Normal hearing present Card Denies chest pain, Denies chest pain at rest, Denies chest pain with activity and Denies pedal edema Resp Denies cough GI Denies abdominal pain Musc Denies abnormal gait, Denies muscle cramps and Denies radiating pain into limb Skin/Breast Denies skin ulcer and Denies wounds Neuro Reports Normal hearing present and Denies abnormal gait Psych Reports no additional complaints Physical Exam Vital Signs: BMI result Body Mass Index 42.7 Const General: cooperative, healthy appearing and comfortable Orientation/consciousness: oriented to person, oriented to place and oriented to time HEENT Head: Yes normal to inspection Neck Neck: Yes normal visual inspection Carotids: no bruits Chest Chest palpation & inspection: normal inspection of the chest Resp Effort & Inspection: normal respiratory effort and able to speak in complete sentences Auscultation: clear to auscultation bilaterally, no crackles, no rales, no rhonchi and no wheezes Cardio Rate: regular rate Rhythm: regular rhythm Heart sounds: S1 normal heart sound present and S2 normal heart sound present Bruits: no carotid bruits Peripheral pulses: Peripheral pulses 2+ throughout GI Inspection: Yes normal to inspection Skin Other: Right leg Steri-Strips removed Wounds: no wounds Hair: normal Neuro General: oriented to person, oriented to place and oriented to time Cranial nerves: Yes CN's II-XII intact bilaterally and Yes Normal hearing present Cognition (Neuro): normal cognition Motor exam (neuro): 5/5 motor strength present throughout Extrem Other: venous exam: No significant superficial varicosities or spider telangiectasias, minimal edema General: No clubbing, No cyanosis and No edema Psych Appearance: grossly normal Mental Status: mental status grossly normal Speech and movement: Normal speech and movement present Assessment & Plan Assessment & Plan (1) Varicose veins of right lower extremity with inflammation: Comment: 02/24/2025 - right great saphenous vein Cyanoacralate ablation 10/20/2025 - right leg microphlebectomy Code(s): I83.11 - Varicose veins of right lower extremity with inflammation Category: Medical Plan: The patient has done extremely well with all venous treatments. Patient's may often experience postprocedure phlebitic episodes and I have discussed with the patient use of warm compresses and NSAIDS if tolerated for pain discomfort. In addition, I have discussed continued conservative measures including use of compression, leg elevation, and exercise. The patient was also given an information sheet regarding appropriate use of compression stockings and future purchases. Thank you for allowing us to care for your patient with venous disease. Coding Level of Care Code Est Pt Level 3 (42795) Diagnoses Varicose veins of right lower extremity with inflammation I83.11
== END 2025-11-01 10:11 | disposition home or self-care (01) ==
LOC: HO.HVS 09:27
PROVIDERS: PCP Family Medicine; Visit Provider Surgery Vascular Surgery
DX: I83.11 Varicose veins of right lower extremity with inflammation (principal)
CPT/HCPCS: 99213

== ENCOUNTER → 2025-11-01 09:26 | Outpatient (BNVA) | payer OTHER, SELFPAY | PROVIDERS: PCP Family Medicine; Visit Provider Surgery Vascular Surgery | DX: Z48.812 Encounter for surgical aftercare following surgery on the circulatory system (principal); I83.11 Varicose veins of right lower extremity with inflammation | CPT/HCPCS: 99212 ==

== ENCOUNTER 2025-11-06 14:29 | Outpatient (AMB) | payer OTHER, SELFPAY ==
[2025-11-06 14:32] VITALS: BP 131/86; PULSE 82; BMI 41.4
--- NOTE | 2025-11-06 14:32 | A.OFFVIS_ITS ---
Vital Signs 11/06/25 14:32 Height 5 ft 3 in Weight 233 lb 7.766 oz BMI 41.4 BP 131/86 Blood Pressure Location Lt brachial Position Sitting Pulse 82 Intake Visit Reasons: 30 MIN. 6m Intake Note: Thu presents in the office as a 6 month follow up. CC; She states that everything is normal other than the constipation. She wants to change her dulcolax to another form because she states she got a maximiliano that is not working as good for her. She said she does not remember the name but it is a GREEN pack that comes with 5 pills. Rod And Tube Straightener Required: Yes Rod And Tube Straightener Name: [id number] Allergies procaine (From Novocain) Allergy (Mild, Verified 11/06/25 14:37) Redness of Skin HPI HPI 30 MIN. 6m: Details: LAST VISIT Elevated liver enzymes Postprandial abdominal bloating Abdominal pain, LUQ (left upper quadrant) Hemorrhoids without complication Constipation Plan Elevated ALT. Patient was encouraged to speak to her PCP about possibly going on GLP 1 to help her not only with improving A1c but also losing weight. Patient could start Ozempic. However discussed with patient avoiding carbs, eat more protein and low fat diet. Eat more vegetables. Patient will follow-up in our office in 6 months, sooner on as needed basis. She is agreeable to this plan and verbalizes understanding of instructions. She was given the opportunity to ask questions and all questions answered. ? Thank you for allowing me to participate in her care Refilled bisacodyl (Dulcolax (bisacodyl)) 10 mg (2 x 5 mg) PO BEDTIME 180 tabs 4RF TODAY'S VISIT Patient is here today for follow-up. Patient reports that she has been doing fairly well, however she is not moving her bowels as well as she would like to. Patient states that she takes go for walks and will have a bowel movement, however she feels like she does not empty completely. Patient reports that she would like to try something alse. Patient try Ozempic, however she did not do well with that and then insurance was not covering it. Patient is tired of gaining obese weight in the past 2 years. Patient feels like since she started menopause she gained a lot of weight. Patient reports that she is not eating that much. She will be seeing her etl software engineer next month and will ask if she can go on hormone replacement therapy. Otherwise patient reports that she has been doing fairly well. States that omeprazole has been working for her. Patient reports that she is trying to eat smaller meals and avoiding certain food. [facility] Medical History HTN (hypertension) Fibroid Hemorrhoids Varicose veins of both legs with edema Asthma Surgical History History of colonoscopy (~2012) No pertinent past surgical history Family History Mother High blood pressure Glaucoma Father Radiation adverse effect Social History Household Members: Children Housing: House Are you a primary medicare biller to a significant other at home: No Do you presently have visiting nurse or other home services: No Alcohol intake: current Alcohol intake frequency: holidays/special occasions only Patient Tobacco Use Status: Never used Tobacco e-Cigarette/Vaping Use: Never Used Second Hand Smoke Exposure: No service: No Current occupational status: other Cognitive needs: No Hearing needs: No Vision needs: No Review of Systems Const Denies weight gain and Denies weight loss ENT Reports no additional complaints, Denies dysphagia and Denies odynophagia Card Reports no additional complaints Resp Reports no additional complaints GI Denies abdominal pain, Denies belching, Denies melena, Denies bloating, Denies change in bowel habits, Reports constipation, Denies dysphagia, Denies excessive flatus, Denies dyspepsia, Denies heartburn, Denies diarrhea, Denies loose stools, Denies nausea, Denies odynophagia and Denies vomiting Reports no additional complaints Musc Reports no additional complaints Neuro Reports no additional complaints Psych Reports no additional complaints Endo Reports no additional complaints Physical Exam Vital Signs: Last Vital Signs Pulse 82 11/06/25 14:32 BP 131/86 11/06/25 14:32 BMI result Body Mass Index 41.4 Const General: healthy appearing and no acute distress Nutritional Appearance: obese Orientation/consciousness: patient oriented x3 Resp Effort & Inspection: normal respiratory effort, able to speak in complete sentences, no tracheal deviation and symmetric chest movement Auscultation: clear to auscultation bilaterally Cardio Rate: regular rate GI Inspection: Yes normal to inspection, No distended and Yes obesity Palpation (GI): Soft to palpation, not firm, nontender and No hepatosplenomegaly present Auscultation: normal bowel sounds General: Yes no CVA tenderness Back/Spine/Pelvis Back: no CVA tenderness Skin General skin exam: elasticity normal, turgor normal and dry skin Neuro General: patient oriented x3 Psych Appearance: grossly normal Mental Status: mental status grossly normal Assessment & Plan Assessment & Plan (1) GERD (gastroesophageal reflux disease): Code(s): K21.9 - Gastro-esophageal reflux disease without esophagitis Category: Medical Qualifiers: Esophagitis presence: esophagitis presence not specified Qualified Code(s): K21.9 - Gastro-esophageal reflux disease without esophagitis (2) Elevated liver enzymes: Code(s): R74.8 - Abnormal levels of other serum enzymes Category: Medical (3) Epigastric pain: Code(s): R10.13 - Epigastric pain Category: Medical (4) Constipation: Code(s): K59.00 - Constipation, unspecified Qualifiers: Constipation type: chronic idiopathic constipation Qualified Code(s): K59.04 - Chronic idiopathic constipation Plan Patient will start taking senna to see if that will help. Increase fluid intake and activity to promote bowel motility. However patient was encouraged to call our office if she continues to be constipated. Patient will try different type of berberine that is easier absorbed. Patient will follow-up in the office in 6 months. She was encouraged to call us if he will have any GI concerning symptoms. Patient is agreeable to this plan and verbalizes understanding of instructions. She was given the opportunity to ask questions and all questions answered. Thank you for allowing me to participate in her care Medications: New sennosides (Natural Senna Laxative) 17.2 mg (2 x 8.6 mg) PO BEDTIME 180 tabs 3RF constipation K59.00 - Constipation, unspecified Coding Level of Care Code Est Pt Level 3 (82666) Diagnoses Gastroesophageal reflux disease, unspecified whether esophagitis present K21.9 Esophagitis presence: esophagitis presence not specified Elevated liver enzymes R74.8 Epigastric pain R10.13 Chronic idiopathic constipation K59.04 Constipation type: chronic idiopathic constipation Time Spent (min) 30 Comment 20 minutes spent with patient and additional 10 minutes spent reviewing her records
== END 2025-11-06 15:11 | disposition home or self-care (01) ==
LOC: HO.HGI 14:30
PROVIDERS: PCP Family Medicine; Visit Provider Nurse Practitioner Family
DX: K21.9 Gastro-esophageal reflux disease without esophagitis (principal); R74.8 Abnormal levels of other serum enzymes; R10.13 Epigastric pain; K59.04 Chronic idiopathic constipation
CPT/HCPCS: 99213

== ENCOUNTER → 2025-11-06 14:29 | Outpatient (BNVA) | payer OTHER, SELFPAY | PROVIDERS: PCP Family Medicine; Visit Provider Nurse Practitioner Family | DX: K59.04 Chronic idiopathic constipation (principal); K21.9 Gastro-esophageal reflux disease without esophagitis; R74.8 Abnormal levels of other serum enzymes; R10.13 Epigastric pain | CPT/HCPCS: 99212 ==